=== PATIENT | female | born 1945 | race Caucasian/White ===

== ENCOUNTER 2017-02-16 00:10 | Emergency (ER) | payer MEDICARE, BC ==
[2017-02-16] MEDS ORDERED: diphenhydrAMINE 50 MG/ML 1 ML VIAL IVP STA (00:37)
[2017-02-16] MEDS ORDERED: FAMOTIDINE 20 MG/2 ML VIAL IV STA (00:37)
--- NOTE | 2017-02-16 00:45 | ED ---
General Adult HPI - General Chief complaint: Allergic Reaction Stated complaint: Poss Allergic Reaction Time Seen by Provider: 02/16/17 00:28 Source: patient, RN notes reviewed Mode of arrival: ambulatory Limitations: no limitations - History of Present Illness Initial comments: Patient is 71-year-old female who presents emergency room today with a chief complaint possible ALLERGIC reaction. She does admit that she was at her family doctor's office this afternoon approximately 2 PM and had a pneumonia and shingles shot. She states approximately 10 PM she began feeling some numbness tingling sensation to her lips. She states she noticed her face was a little swollen on the left side and left arm was swollen. She states she called the on-call nurse advised to come here to the emergency room. She states not take any medications prior to arrival. Patient denies any recent fever, chills, shortness of breath, chest pain, back pain, abdominal pain, nausea or vomiting, numbness or tingling, dysuria or hematuria, constipation or diarrhea, headaches or visual changes, or any other complaints. - Related Data Home Medications Medication Instructions Recorded Confirmed Atenolol [Tenormin] 25 mg PO DAILY 04/20/14 02/16/17 Gabapentin [Neurontin] 600 mg PO BID 04/20/14 02/16/17 Levothyroxine Sodium [Levoxyl] 100 mcg PO DAILY 04/20/14 02/16/17 clonazePAM [KlonoPIN] 0.25 mg PO BID 04/20/14 02/16/17 cycloSPORINE 0.05% OPHTH SOLN 1 applicator BOTH EYES Q12H 04/20/14 02/16/17 [Restasis 0.05% Ophth Soln] Estrogens, Conjugated Cream 1 applicator VAGINAL DAILY 05/13/15 02/16/17 [Premarin Cream] Atorvastatin [Lipitor] 40 mg PO HS 05/22/16 02/16/17 Omeprazole 40 mg PO AC-BRKFST 05/22/16 02/16/17 Losartan/Hydrochlorothiazide 1 each PO DAILY 02/16/17 02/16/17 [Losartan-Hctz 50-12.5 mg Tab] Previous Rx's Medication Instructions Recorded Famotidine [Pepcid] 20 mg PO BID #20 tablet 02/16/17 diphenhydrAMINE [Benadryl] 1 - 2 tab PO Q6HR PRN #30 capsule 02/16/17 Allergies Allergy/AdvReac Type Severity Reaction Status Date / Time amoxicillin trihydrate Allergy Rash/Hives Verified 02/16/17 00:15 [From Augmentin] clopidogrel bisulfate Allergy Swelling Verified 02/16/17 00:15 [From Plavix] phenobarbital Allergy Rash/Hives Verified 02/16/17 00:15 potassium clavulanate Allergy Rash/Hives Verified 02/16/17 00:15 [From Augmentin] Review of Systems ROS Statement: Those systems with pertinent positive or pertinent negative responses have been documented in the HPI. ROS Other: All systems not noted in ROS Statement are negative. Past Medical History Past Medical History: Coronary Artery Disease (CAD), Hypertension, Renal Disease , Thyroid Disorder Additional Past Medical History / Comment(s): TACHYCARDIA, STAGE 3 RENAL FAILURE History of Any Multi-Drug Resistant Organisms: None Reported Past Surgical History: Heart Catheterization Additional Past Surgical History / Comment(s): D&C, cyst removed from spine Past Psychological History: Anxiety Smoking Status: Never smoker Past Alcohol Use History: Occasional Past Drug Use History: None Reported General Exam - General Exam Comments Initial Comments: General: The patient is awake and alert, in no distress, and does not appear acutely ill. Eye: Pupils are equal, round and reactive to light, extra-ocular movements are intact. No nystagmus. There is normal conjunctiva bilaterally. No signs of icterus. Ears, nose, mouth and throat: There are moist mucous membranes and no oral lesions. Neck: The neck is supple, there is no tenderness or JVD. Cardiovascular: There is a regular rate and rhythm. No murmur, rub or gallop is appreciated. Respiratory: Lungs are clear to auscultation, respirations are non-labored, breath sounds are equal. No wheezes, stridor, rales, or rhonchi. Gastrointestinal: Soft, non-distended, non-tender abdomen without masses or organomegaly noted. There is no rebound or guarding present. No CVA tenderness. Bowel sounds are unremarkable. Musculoskeletal: Normal ROM, no tenderness. Strength 5/5. Sensation intact. Pulses equal bilaterally 2+. Neurological: A&O x 3. CN II-XII intact, There are no obvious motor or sensory deficits. Coordination appears grossly intact. Speech is normal. Skin: Skin is warm and dry and no rashes or lesions are noted. Psychiatric: Cooperative, appropriate mood & affect, normal judgment. Limitations: no limitations Course Vital Signs 02/16/17 02/16/17 02/16/17 00:13 00:56 01:22 Temperature 98.0 F Pulse Rate 84 68 63 Respiratory 18 16 18 Rate Blood Pressure 203/89 187/79 162/70 O2 Sat by Pulse 98 98 100 Oximetry Medical Decision Making - Medical Decision Making Patient reexamined at this time shows no signs of distress. She does admit that she's feeling better after Benadryl given here in the emergency room. Patient was not given IV steroids as she states she has had similar reactions with numbness and tingling to her mouth after prednisone. She was given 50 mg of IV Benadryl along with 20 mg of Pepcid. She is feeling better has currently asymptomatic at this time. Denies any difficulty breathing or swallowing. At this time she'll be discharged home and advised to continue with Benadryl one to 2 tabs every 6 hours along with Pepcid twice daily. Patient advised follow- up family doctor tomorrow return here to the emergency room if any symptoms increase worsen. She states understanding and is in agreement. Disposition Clinical Impression: Allergic reaction Disposition: HOME SELF-CARE Condition: Good Instructions: Anaphylaxis (ED) Additional Instructions: Please use medication as discussed. Please follow-up with family doctor in the next 2 days of symptoms have not improved. Please return to emergency room if the symptoms increase or worsen or for any other concerns. Prescriptions: Famotidine [Pepcid] 20 mg PO BID #20 tablet diphenhydrAMINE [Benadryl] 1 - 2 tab PO Q6HR PRN #30 capsule PRN Reason: Allergic Reaction Time of Disposition: 01:49
[2017-02-16 01:23] VITALS: RESP 18
[2017-02-16 02:01] VITALS: BP 158/67; PULSE 62; TEMP 96.9
== END 2017-02-16 02:00 | disposition home or self-care (01) ==
LOC: EC 00:10
DX: T80.62XA Other serum reaction due to vaccination, initial encounter (principal); T50.B95A Adverse effect of other viral vaccines, initial encounter; T50.A95A Adverse effect of other bacterial vaccines, initial encounter; I12.9 Hypertensive chronic kidney disease with stage 1 through stage 4 chronic kidney disease, or unspecified chronic kidney disease; N18.3 Chronic kidney disease, stage 3 (moderate); F41.9 Anxiety disorder, unspecified; Z79.899 Other long term (current) drug therapy; Z88.1 Allergy status to other antibiotic agents; Z88.8 Allergy status to other drugs, medicaments and biological substances
CPT/HCPCS: 99284; 96374; 96375; J1200

== ENCOUNTER 2017-04-21 15:53 | Observation (INO) | payer MEDICARE, BC ==
[2017-04-21] MEDS ORDERED: ASPIRIN 81 MG CHEW PO STA (16:34)
[2017-04-21] MEDS ORDERED: NITROGLYCERIN SL TABS 0.4 MG TAB SUBLINGUAL STA ×3 (16:34)
--- NOTE | 2017-04-21 16:37 | ED ---
General Adult HPI - General Chief complaint: Chest Pain Stated complaint: Chest Pain Time Seen by Provider: 04/21/17 16:25 Source: patient, RN notes reviewed Mode of arrival: wheelchair Limitations: no limitations - History of Present Illness Initial comments: Patient is a pleasant 71-year-old female presenting to the emergency department complaining of chest discomfort. Onset of symptoms was earlier in the morning. Patient states discomfort has been waxing and waning since that time. Discomfort feels mostly like tightness. Discomfort does radiate somewhat towards the back. Patient states there may be minimal dyspnea or nausea. No diaphoresis. No history of similar symptoms previously. Patient has been having problems with high blood pressure recently. - Related Data Home Medications Medication Instructions Recorded Confirmed Levothyroxine Sodium [Levoxyl] 100 mcg PO SUMOTUWETHFR 04/20/14 04/21/17 clonazePAM [KlonoPIN] 0.25 mg PO BID 04/20/14 04/21/17 cycloSPORINE 0.05% OPHTH SOLN 1 applicator BOTH EYES Q12H 04/20/14 04/21/17 [Restasis 0.05% Ophth Soln] Estrogens, Conjugated Cream 1 applicator VAGINAL DAILY 05/13/15 04/21/17 [Premarin Cream] Atorvastatin [Lipitor] 40 mg PO HS 05/22/16 04/21/17 Omeprazole 40 mg PO AC-BRKFST 05/22/16 04/21/17 Aspirin [Children's Aspirin] 81 mg PO DAILY 04/21/17 04/21/17 Atenolol [Tenormin] 50 mg PO BID 04/21/17 04/21/17 Fluticasone Nasal [place] [Flonase 1 spr EA NOSTRIL DAILY PRN 04/21/17 04/21/17 Nasal [place]] Gabapentin 600 mg PO BID 04/21/17 04/21/17 L.acidoph,Paracasei, B.lactis 1 cap PO HS 04/21/17 04/21/17 [Probiotic] Levothyroxine Sodium [Levoxyl] 50 mcg PO SA 04/21/17 04/21/17 Methylcellulose (with Sugar) 2 gm PO QAM 04/21/17 04/21/17 [Citrucel Powder] Zanaflex (Unknown Dose) 1 tab PO DIRECTED PRN 04/21/17 04/21/17 Allergies Allergy/AdvReac Type Severity Reaction Status Date / Time amoxicillin trihydrate Allergy Rash/Hives Verified 04/21/17 17:41 [From Augmentin] clopidogrel bisulfate Allergy Swelling Verified 04/21/17 17:41 [From Plavix] phenobarbital Allergy Rash/Hives Verified 04/21/17 17:41 potassium clavulanate Allergy Rash/Hives Verified 04/21/17 17:41 [From Augmentin] Review of Systems ROS Statement: Those systems with pertinent positive or pertinent negative responses have been documented in the HPI. ROS Other: All systems not noted in ROS Statement are negative. Constitutional: Denies: fever Eyes: Denies: eye pain ENT: Denies: ear pain Respiratory: Denies: cough Cardiovascular: Reports: chest pain Endocrine: Denies: fatigue Gastrointestinal: Denies: abdominal pain Genitourinary: Denies: urgency Skin: Denies: rash Neurological: Denies: headache Psychiatric: Reports: anxiety Past Medical History Past Medical History: Coronary Artery Disease (CAD), Hypertension, Renal Disease , Thyroid Disorder Additional Past Medical History / Comment(s): TACHYCARDIA, STAGE 3 RENAL FAILURE History of Any Multi-Drug Resistant Organisms: None Reported Past Surgical History: Heart Catheterization Additional Past Surgical History / Comment(s): D&C, cyst removed from spine Past Psychological History: Anxiety Smoking Status: Never smoker Past Alcohol Use History: Occasional Past Drug Use History: None Reported General Exam Limitations: no limitations General appearance: alert, in no apparent distress Head exam: Present: atraumatic Eye exam: Present: normal appearance, PERRL ENT exam: Present: normal oropharynx Neck exam: Present: normal inspection Respiratory exam: Present: normal lung sounds bilaterally Cardiovascular Exam: Present: regular rate, normal rhythm Expanded Peripheral pulses: 2+: Radial (R), Radial (L), Dorsalis Pedis (R), Dorsalis Pedis (L) GI/Abdominal exam: Present: soft. Absent: tenderness Extremities exam: Present: normal inspection. Absent: pedal edema, calf tenderness Neurological exam: Present: alert Psychiatric exam: Present: normal affect, normal mood Skin exam: Present: normal color Course Vital Signs 04/21/17 04/21/17 16:09 16:38 Temperature 97.7 F 98.2 F Pulse Rate 53 L 59 L Respiratory 16 17 Rate Blood Pressure 196/80 179/75 O2 Sat by Pulse 98 99 Oximetry EKG Findings - EKG Comments: EKG Findings:: Sinus bradycardia 57. RI 180. QRS 98. QT 446. QTc 434. Normal axis. Normal QRS. Nonspecific ST-T. Previous EKG dated 05/22/2016 was reviewed. Medical Decision Making - Medical Decision Making Patient reexamined and resting comfortably in bed. No discomfort at this time. Patient updated on results and plan. Case discussed in detail with Dr. Coppola , who will admit for hospital call. - Lab Data Result diagrams: 04/21/17 16:36 04/21/17 16:36 Lab Results 04/21/17 04/21/17 04/21/17 Range/Units 16:36 16:36 16:36 WBC 6.5 (3.8-10.6) k/uL RBC 4.56 (3.80-5.40) m/uL Hgb 13.6 (11.4-16.0) gm/dL Hct 40.7 (34.0-46.0) % MCV 89.2 (80.0-100.0) fL MCH 29.9 (25.0-35.0) pg MCHC 33.5 (31.0-37.0) g/dL RDW 14.4 (11.5-15.5) % Plt Count 194 (150-450) k/uL Neutrophils % 65 % Lymphocytes % 25 % Monocytes % 4 % Eosinophils % 2 % Basophils % 1 % Neutrophils # 4.2 (1.3-7.7) k/uL Lymphocytes # 1.6 (1.0-4.8) k/uL Monocytes # 0.3 (0-1.0) k/uL Eosinophils # 0.2 (0-0.7) k/uL Basophils # 0.0 (0-0.2) k/uL PT (9.0-12.0) sec INR (<1.1) APTT (22.0-30.0) sec D-Dimer (<0.60) mg/L FEU Sodium 143 (137-145) mmol/L Potassium 4.0 (3.5-5.1) mmol/L Chloride 108 H (98-107) mmol/L Carbon Dioxide 24 (22-30) mmol/L Anion Gap 11 mmol/L BUN 22 H (7-17) mg/dL Creatinine 1.05 H (0.52-1.04) mg/dL Est GFR (MDRD) Af Amer >60 (>60 ml/min/1.73 sqM) Est GFR (MDRD) Non-Af 52 (>60 ml/min/1.73 sqM) Glucose 104 H (74-99) mg/dL Calcium 9.9 (8.4-10.2) mg/dL Magnesium 2.0 (1.6-2.3) mg/dL Total Bilirubin 1.0 (0.2-1.3) mg/dL AST 33 (14-36) U/L ALT 40 (9-52) U/L Alkaline Phosphatase 70 (38-126) U/L Total Creatine Kinase 131 (30-135) U/L CK-MB (CK-2) 1.6 (0.0-2.4) ng/mL CK-MB (CK-2) Rel Index 1.2 Troponin I <0.012 (0.000-0.034) ng/mL Total Protein 7.3 (6.3-8.2) g/dL Albumin 4.3 (3.5-5.0) g/dL 04/21/17 Range/Units 16:36 WBC (3.8-10.6) k/uL RBC (3.80-5.40) m/uL Hgb (11.4-16.0) gm/dL Hct (34.0-46.0) % MCV (80.0-100.0) fL MCH (25.0-35.0) pg MCHC (31.0-37.0) g/dL RDW (11.5-15.5) % Plt Count (150-450) k/uL Neutrophils % % Lymphocytes % % Monocytes % % Eosinophils % % Basophils % % Neutrophils # (1.3-7.7) k/uL Lymphocytes # (1.0-4.8) k/uL Monocytes # (0-1.0) k/uL Eosinophils # (0-0.7) k/uL Basophils # (0-0.2) k/uL PT 10.2 (9.0-12.0) sec INR 1.0 (<1.1) APTT 22.7 (22.0-30.0) sec D-Dimer 0.37 (<0.60) mg/L FEU Sodium (137-145) mmol/L Potassium (3.5-5.1) mmol/L Chloride (98-107) mmol/L Carbon Dioxide (22-30) mmol/L Anion Gap mmol/L BUN (7-17) mg/dL Creatinine (0.52-1.04) mg/dL Est GFR (MDRD) Af Amer (>60 ml/min/1.73 sqM) Est GFR (MDRD) Non-Af (>60 ml/min/1.73 sqM) Glucose (74-99) mg/dL Calcium (8.4-10.2) mg/dL Magnesium (1.6-2.3) mg/dL Total Bilirubin (0.2-1.3) mg/dL AST (14-36) U/L ALT (9-52) U/L Alkaline Phosphatase (38-126) U/L Total Creatine Kinase (30-135) U/L CK-MB (CK-2) (0.0-2.4) ng/mL CK-MB (CK-2) Rel Index Troponin I (0.000-0.034) ng/mL Total Protein (6.3-8.2) g/dL Albumin (3.5-5.0) g/dL - Radiology Data Radiology results: image reviewed (Chest x-ray shows no acute process) Disposition Clinical Impression: Unstable angina pectoris Disposition: ADMITTED IP TO THIS [facility] Referrals: Nonstaff,Physician [Primary Care Provider] - 1-2 days Decision Time: 18:20
[2017-04-21] MEDS ORDERED: NITROGLYCERIN OINT 1 INCH/GM PACKET TOPICAL STA (16:43)
[2017-04-21 17:03] LABS: Basophils % (A) 1 %; CH 29.5; CHCM 33.2; Eosinophils # (A) 0.2 k/uL (0-0.7); Eosinophils % (A) 2 %; HCT 40.7 % (34.0-46.0); HDW 2.27; HGB 13.6 gm/dL (11.4-16.0); Luc # (Auto) 0.17; Luc % (Auto) 3; Lymphocytes # (A) 1.6 k/uL (1.0-4.8); Lymphocytes % (A) 25 %; MCH 29.9 pg (25.0-35.0); MCHC 33.5 g/dL (31.0-37.0); MCV 89.2 fL (80.0-100.0); Mean Platelet Volume 7.9; Monocytes # (A) 0.3 k/uL (0-1.0); Monocytes % (A) 4 %; Neutrophils # (A) 4.2 k/uL (1.3-7.7); Neutrophils % (A) 65 %; RBC 4.56 m/uL (3.80-5.40); RDW 14.4 % (11.5-15.5); WBC 6.5 k/uL (3.8-10.6); WBC (Perox) 6.16
[2017-04-21 17:17] LABS: Partial Thromboplastin Time 22.7 sec (22.0-30.0); Prothrombin Time 10.2 sec (9.0-12.0)
--- NOTE | 2017-04-21 17:21 | XR ---
EXAMINATION TYPE: XR chest 2V DATE OF EXAM: 04/21/2017 COMPARISON: NONE INDICATION: Chest pain TECHNIQUE: Frontal and lateral views of the chest are obtained. FINDINGS: The heart size is normal. The pulmonary vasculature is normal. The lungs are clear. IMPRESSION: 1. No acute pulmonary process.
[2017-04-21 17:22] LABS: ALT 40 U/L (9-52); AST 33 U/L (14-36); Alkaline Phosphatase 70 U/L (38-126); Anion Gap 11 mmol/L; Blood Urea Nitrogen 22 mg/dL (7-17); Calcium 9.9 mg/dL (8.4-10.2); Carbon Dioxide 24 mmol/L (22-30); Chloride 108 mmol/L (98-107); Creatine Kinase 131 U/L (30-135); Glucose 104 mg/dL (74-99); Non-African American GFR(MDRD) 52 (>60 ml/min/1.73 sqM); Sodium 143 mmol/L (137-145); Total Protein 7.3 g/dL (6.3-8.2)
[2017-04-21 17:34] LABS: Creatine Kinase MB 1.6 ng/mL (0.0-2.4); Troponin I <0.012 ng/mL (0.000-0.034)
[2017-04-21] MEDS ORDERED: NITROGLYCERIN SL TABS 0.4 MG TAB SUBLINGUAL PRN (18:20)
[2017-04-21] MEDS ORDERED: HEPARIN SODIUM,PORCINE 5,000 UNIT/ML 1 ML VIAL IV ONE (18:20)
[2017-04-21] MEDS ORDERED: HEPARIN SODIUM,PORCINE 5,000 UNIT/ML 1 ML VIAL IV PRN (18:20)
[2017-04-21] MEDS ORDERED: HEPARIN SODIUM,PORCINE/D5W PMX 25,000 UNIT in DEXTROSE/WATER 1 500ML.BAG IV SCH (18:30)
[2017-04-21 20:20] VITALS: BMI 31.1
[2017-04-21] MEDS: cycloSPORINE 0.05% OPHTH 0.4 ML DROPERETTE BOTH EYES SCH (20:46)
[2017-04-21] MEDS: GABAPENTIN 300 MG CAP PO SCH (20:46)
[2017-04-21] MEDS: clonazePAM 0.5 MG TAB PO SCH (20:46)
[2017-04-21] MEDS: ATENOLOL 50 MG TAB PO SCH (20:46)
[2017-04-21] MEDS: ACETAMINOPHEN TAB 325 MG TAB PO PRN (20:59)
[2017-04-21] MEDS ORDERED: ATORVASTATIN 40 MG TAB PO SCH (21:00)
[2017-04-21 22:54] LABS: Creatine Kinase 112 U/L (30-135)
[2017-04-21 23:07] LABS: Creatine Kinase MB 1.4 ng/mL (0.0-2.4); Troponin I <0.012 ng/mL (0.000-0.034)
[2017-04-22] MEDS: ACETAMINOPHEN TAB 325 MG TAB PO PRN ×2 (03:10→08:29)
[2017-04-22] MEDS: NITROGLYCERIN OINT 1 INCH/GM PACKET TOPICAL SCH ×2 (03:23→06:00)
[2017-04-22] MEDS ORDERED: LEVOTHYROXINE 100 MCG TAB PO SCH (06:30)
[2017-04-22 07:26] LABS: Mean Platelet Volume 7.8
[2017-04-22] MEDS ORDERED: PANTOPRAZOLE 40 MG TABLET PO SCH (07:30)
[2017-04-22 07:44] VITALS: BP 155/68; PULSE 51; RESP 16; TEMP 97.6
[2017-04-22 08:10] LABS: Creatine Kinase MB 1.1 ng/mL (0.0-2.4); Troponin I <0.012 ng/mL (0.000-0.034)
[2017-04-22 08:15] LABS: Creatine Kinase 90 U/L (30-135)
[2017-04-22 08:21] LABS: Cholesterol 115 mg/dL (<200); HDL Cholesterol 49 mg/dL (40-60); Triglycerides 76 mg/dL (<150)
[2017-04-22] MEDS: ATENOLOL 50 MG TAB PO SCH (08:25)
[2017-04-22] MEDS: GABAPENTIN 300 MG CAP PO SCH (08:26)
[2017-04-22] MEDS: cycloSPORINE 0.05% OPHTH 0.4 ML DROPERETTE BOTH EYES SCH (08:26)
[2017-04-22] MEDS: clonazePAM 0.5 MG TAB PO SCH (08:29)
[2017-04-22] MEDS ORDERED: ASPIRIN 325 MG TAB PO SCH (09:00)
--- NOTE | 2017-04-22 09:39 | P.CRDCN ---
History of Present Illness Consult date: 04/22/17 History of present illness: This is a 71-year-old female with history of hypertensive cardiovascular disease , labile hypertension and recurrent chest pains for which she had previous cardiac catheterizations 3. She had last bout of chest pain him in 2014 and had a cardiac catheterization at [facility] which he did not reveal any significant obstructive disease. according to the patient. He should also has back pain and spinal stenosis. Patient's blood pressure hasn't been well controlled. The dose of atenolol was recently increased to 50 mg twice daily. She was tried on her lisinopril was stopped and hydrochlorothiazide in the past which apparently made her blood pressure too low. She seemed very anxious. An EKG showed sinus rhythm with nonspecific ST- T abnormalities. Cardiac enzymes are negative. She feels better today and her blood pressure is reasonably controlled. As patient has several investigation the past for these pains, I'm not suggesting any further evaluation at this time. Patient is critically stable and could be discharged home. Follow-up with Dr. BOAZ Caruso in one week. Review of Systems REVIEW OF SYSTEMS: CONSTITUTIONAL:. Patient is doing well. No complaints of fever or chills EYES: Denies diplopia, blurring of vision EARS, NOSE, MOUTH, THROAT: Denies headaches, denies sore throat. CARDIOVASCULAR: As per HPI RESPIRATORY: Denies shortness of breath, denies cough. GASTROINTESTINAL: Denies change in appetite, denies abdominal pain, denies diarrhea GENITOURINARY: Denies hematuria, denies infections. MUSKULOSKELETAL: Denies pain, denies swelling. Denies any cramps or claudication INTEGUMENTARY: Denies rash, denies eczema. NEUROLOGICAL: Denies focal weakness, or visual disturbance. Denies any dizziness or syncope PSYCHIATRIC: Denies anxiety, denies depression. HEMATOLOGIC/LYMPHATIC: Denies any bleeding, denies enlarged lymph nodes. Past Medical History Past Medical History: Coronary Artery Disease (CAD), Hypertension, Renal Disease , Thyroid Disorder Additional Past Medical History / Comment(s): TACHYCARDIA, STAGE 3 RENAL FAILURE History of Any Multi-Drug Resistant Organisms: None Reported Past Surgical History: Breast Surgery, Heart Catheterization, Tonsillectomy Additional Past Surgical History / Comment(s): D&C, cyst removed from spine Past Anesthesia/Blood Transfusion Reactions: Postoperative Nausea & Vomiting ( PONV) Past Psychological History: Anxiety Smoking Status: Never smoker - Past Family History Mother Family Medical History: Cancer Additional Family Medical History / Comment(s): breast cancer, parkinsins, degenerative disc disease, ovary cyst, passed from head injury Father Family Medical History: Coronary Artery Disease (CAD), Hypertension, Myocardial Infarction ([place]) Additional Family Medical History / Comment(s): triple bypass Brother(s) Additional Family Medical History / Comment(s): subdural hematoma Son(s) Family Medical History: No Reported History Sister(s) Family Medical History: Hypertension Additional Family Medical History / Comment(s): parathyroid disorder Medications and Allergies Home Medications Medication Instructions Recorded Confirmed Type Levothyroxine Sodium [Levoxyl] 100 mcg PO SUMOTUWETHFR 04/20/14 04/21/17 History clonazePAM [KlonoPIN] 0.25 mg PO BID 04/20/14 04/21/17 History cycloSPORINE 0.05% OPHTH SOLN 1 applicator BOTH EYES Q12H 04/20/14 04/21/17 History [Restasis 0.05% Ophth Soln] Estrogens, Conjugated Cream 1 applicator VAGINAL DAILY 05/13/15 04/21/17 History [Premarin Cream] Atorvastatin [Lipitor] 40 mg PO HS 05/22/16 04/21/17 History Omeprazole 40 mg PO AC-BRKFST 05/22/16 04/21/17 History Aspirin [Children's Aspirin] 81 mg PO DAILY 04/21/17 04/21/17 History Atenolol [Tenormin] 50 mg PO BID 04/21/17 04/21/17 History Fluticasone Nasal [place] [Flonase 1 spr EA NOSTRIL DAILY PRN 04/21/17 04/21/17 History Nasal [place]] Gabapentin 600 mg PO BID 04/21/17 04/21/17 History L.acidoph,Paracasei, B.lactis 1 cap PO HS 04/21/17 04/21/17 History [Probiotic] Levothyroxine Sodium [Levoxyl] 50 mcg PO SA 04/21/17 04/21/17 History Methylcellulose (with Sugar) 2 gm PO QAM 04/21/17 04/21/17 History [Citrucel Powder] Zanaflex (Unknown Dose) 1 tab PO DIRECTED PRN 04/21/17 04/21/17 History Allergies Allergy/AdvReac Type Severity Reaction Status Date / Time amoxicillin trihydrate Allergy Rash/Hives Verified 04/21/17 20:37 [From Augmentin] clopidogrel bisulfate Allergy Swelling Verified 04/21/17 20:37 [From Plavix] phenobarbital Allergy Rash/Hives Verified 04/21/17 20:37 potassium clavulanate Allergy Rash/Hives Verified 04/21/17 20:37 [From Augmentin] Physical Exam Vitals: Vital Signs Temp Pulse Pulse Resp BP BP Pulse Ox 04/22/17 08:00 51 L 16 04/22/17 07:43 97.6 F 51 L 16 155/68 99 04/22/17 03:55 97.9 F 54 L 18 155/69 97 04/22/17 03:21 16 04/21/17 23:30 16 04/21/17 23:06 97.7 F 62 16 137/64 94 L 04/21/17 20:00 97.9 F 58 L 16 184/79 95 04/21/17 18:44 56 L 17 166/68 98 04/21/17 16:38 98.2 F 59 L 17 179/75 99 04/21/17 16:09 97.7 F 53 L 16 196/80 98 Intake and Output 04/21/17 04/22/17 04/22/17 22:59 06:59 14:59 Intake Total 170 568.446 Balance 170 568.446 Intake: IV 20 245 0.9@20 140 Heparin Sodium,Porcine/ 20 105 D5w Pmx 25,000 unit In Dextrose/Water 1 500ml. bag @ 12 UNITS/KG/HR 18. 61 mls/hr IV .Q24H KARLENE Rx #:[id number] Intake, IV Titration 123.446 Amount Heparin Sodium,Porcine/ 123.446 D5w Pmx 25,000 unit In Dextrose/Water 1 500ml. bag @ 12 UNITS/KG/HR 18. 61 mls/hr IV .Q24H KARLENE Rx #:[id number] Oral 150 200 Other: Voiding Method Toilet Toilet Toilet # Voids 1 3 Weight 79.6 kg GENERAL EXAM: Patient is alert and oriented and doesn't appear to be in any acute distress HEENT: Normocephalic. Normal reaction of pupils, equal size, normal range of extraocular motion. No erythema or exudates in the throat. NECK: No masses, no nuchal rigidity. CHEST: No chest wall deformity. LUNGS: Equal air entry with no crackles or wheeze. HEART: S1 and S2 normal with no audible mumurs or gallops. Regular rhythm, femorals equal on both sides.. ABDOMEN: No hepatosplenomegaly, normal bowel sounds, no guarding or rigidity. SKIN: No rashes CENTRAL NERVOUS SYSTEM: No focal deficits. EXTREMITIES: No cyanosis, clubbing or edema. Results 04/22/17 06:55 04/21/17 16:36 Cardiac Enzymes 04/21/17 04/21/17 04/21/17 Range/Units 16:36 16:36 22:08 AST 33 (14-36) U/L CK-MB (CK-2) 1.6 1.4 (0.0-2.4) ng/mL Troponin I <0.012 <0.012 (0.000-0.034) ng/mL 04/22/17 Range/Units 06:55 AST (14-36) U/L CK-MB (CK-2) 1.1 (0.0-2.4) ng/mL Troponin I <0.012 (0.000-0.034) ng/mL Coagulation 04/21/17 04/22/17 04/22/17 Range/Units 16:36 00:10 06:55 PT 10.2 (9.0-12.0) sec APTT 22.7 94.8 H 63.3 H (22.0-30.0) sec Lipids 04/22/17 Range/Units 06:55 Triglycerides 76 (<150) mg/dL Cholesterol 115 (<200) mg/dL HDL Cholesterol 49 (40-60) mg/dL CBC 04/21/17 04/22/17 Range/Units 16:36 06:55 WBC 6.5 (3.8-10.6) k/uL RBC 4.56 (3.80-5.40) m/uL Hgb 13.6 (11.4-16.0) gm/dL Hct 40.7 (34.0-46.0) % Plt Count 194 170 (150-450) k/uL Comprehensive Metabolic Panel 04/21/17 Range/Units 16:36 Sodium 143 (137-145) mmol/L Potassium 4.0 (3.5-5.1) mmol/L Chloride 108 H (98-107) mmol/L Carbon Dioxide 24 (22-30) mmol/L BUN 22 H (7-17) mg/dL Creatinine 1.05 H (0.52-1.04) mg/dL Glucose 104 H (74-99) mg/dL Calcium 9.9 (8.4-10.2) mg/dL AST 33 (14-36) U/L ALT 40 (9-52) U/L Alkaline Phosphatase 70 (38-126) U/L Total Protein 7.3 (6.3-8.2) g/dL Albumin 4.3 (3.5-5.0) g/dL Current Medications Generic Name Dose Route Start Last Admin Trade Name Freq PRN Reason Stop Dose Admin Acetaminophen 650 mg 04/21/17 20:43 04/22/17 08:29 Tylenol Tab PO 650 mg Q4HR PRN Administration Fever and/ or MILD Pain Aspirin 325 mg 04/22/17 09:00 04/22/17 08:25 Aspirin PO 325 mg DAILY KARLENE Administration Atenolol 50 mg 04/21/17 21:00 04/22/17 08:25 Tenormin PO 50 mg BID KARLENE Administration Atorvastatin Calcium 40 mg 04/21/17 21:00 04/21/17 20:46 Lipitor PO 40 mg HS KARLENE Administration Clonazepam 0.25 mg 04/21/17 21:00 04/22/17 08:29 Klonopin PO 0.25 mg BID KARLENE Administration Cyclosporine 1 drops 04/21/17 21:00 04/22/17 08:26 Restasis 0.05% Ophth Soln BOTH EYES 1 drops Q12HR KARLENE Administration Gabapentin 600 mg 04/21/17 21:00 04/22/17 08:26 Neurontin PO 600 mg BID KARLENE Administration Heparin Sodium (Porcine) 0 unit 04/21/17 18:20 Heparin IV Q6HR PRN Low PTT Protocol Heparin Sodium/Dextrose 25,000 500 mls @ 18.61 mls/hr 04/21/17 18:30 01:14 unit/ IV Solution IV 10 units/kg/hr .Q24H KARLENE 15.51 mls/hr Protocol Titration 12 UNITS/KG/HR Levothyroxine Sodium 50 mcg 04/28/17 06:30 Synthroid PO SA KARLENE Levothyroxine Sodium 100 mcg 04/23/17 06:30 Synthroid PO MOTUWETHFR@0630 KARLENE Nitroglycerin 1 inch 04/22/17 00:00 04/22/17 06:00 Nitro-Bid Oint TOPICAL Not Given Q6HR [facility] Nitroglycerin 0.4 mg 04/21/17 18:20 Nitrostat SUBLINGUAL Q5M PRN Chest Pain Pantoprazole Sodium 40 mg 04/22/17 07:30 04/22/17 08:25 Protonix PO 40 mg AC-BRKFST KARLENE Administration Sodium Chloride 10 ml 04/21/17 21:00 04/22/17 08:26 Saline Flush IV Not Given BID KARLENE Intake and Output 04/21/17 04/22/17 04/22/17 22:59 06:59 14:59 Intake Total 170 568.446 Balance 170 568.446 Intake: IV 20 245 0.9@20 140 Heparin Sodium,Porcine/ 20 105 D5w Pmx 25,000 unit In Dextrose/Water 1 500ml. bag @ 12 UNITS/KG/HR 18. 61 mls/hr IV .Q24H KARLENE Rx #:[id number] Intake, IV Titration 123.446 Amount Heparin Sodium,Porcine/ 123.446 D5w Pmx 25,000 unit In Dextrose/Water 1 500ml. bag @ 12 UNITS/KG/HR 18. 61 mls/hr IV .Q24H KRALENE Rx #:[id number] Oral 150 200 Other: Voiding Method Toilet Toilet Toilet # Voids 1 3 Weight 79.6 kg 04/22/17 06:55 04/21/17 16:36 EKG Interpretations (text) Sinus rhythm with nonspecific ST-T abnormalities Assessment and Plan (1) Unstable angina pectoris Status: Acute (2) Palpitations Status: Acute Plan: Her chest pains appear to be atypical. Cardiac enzymes are negative. Patient had several cardiac catheterizations, last one being in 2014, which apparently did not reveal any significant obstructive disease. Her symptoms may be related to anxiety. From my point of view, patient could be discharged home. Follow-up with Dr. BOAZ Caruso as an outpatient in one week.
--- NOTE | 2017-04-22 14:56 | P.DS ---
Providers Date of admission: 04/21/17 18:20 Attending physician: Silvio Coppola Consults: 04/21/17 18:20 Consult Physician Urgent Consulting Provider: Silvestre Caruso Consult Reason/Comments: ua Do you want consulting provider notified?: Yes Primary care physician: Physician Nonstaff Hospital Course: Please refer to HPI Plan - Discharge Summary New Discharge Prescriptions: No Action cycloSPORINE 0.05% OPHTH SOLN [Restasis 0.05% Ophth Soln] 1 applicator BOTH EYES Q12H Levothyroxine Sodium [Levoxyl] 100 mcg PO SUMOTUWETHFR clonazePAM [KlonoPIN] 0.25 mg PO BID Estrogens, Conjugated Cream [Premarin Cream] 1 applicator VAGINAL DAILY Omeprazole 40 mg PO AC-BRKFST Atorvastatin [Lipitor] 40 mg PO HS Methylcellulose (with Sugar) [Citrucel Powder] 2 gm PO QAM Fluticasone Nasal [place] [Flonase Nasal [place]] 1 spr EA NOSTRIL DAILY PRN PRN Reason: Allergy Symptoms L.acidoph,Paracasei, B.lactis [Probiotic] 1 cap PO HS Atenolol [Tenormin] 50 mg PO BID Aspirin [Children's Aspirin] 81 mg PO DAILY Levothyroxine Sodium [Levoxyl] 50 mcg PO SA Gabapentin 600 mg PO BID tiZANidine [Zanaflex] 4 mg PO Q8HR PRN PRN Reason: MUSCLE SPASMS Discharge Medication List Levothyroxine Sodium [Levoxyl] 100 mcg PO SUMOTUWETHFR 04/20/14 [History] clonazePAM [KlonoPIN] 0.25 mg PO BID 04/20/14 [History] cycloSPORINE 0.05% OPHTH SOLN [Restasis 0.05% Ophth Soln] 1 applicator BOTH EYES Q12H 04/20/14 [History] Estrogens, Conjugated Cream [Premarin Cream] 1 applicator VAGINAL DAILY [History] Atorvastatin [Lipitor] 40 mg PO HS 05/22/16 [History] Omeprazole 40 mg PO AC-BRKFST 05/22/16 [History] Aspirin [Children's Aspirin] 81 mg PO DAILY 04/21/17 [History] Atenolol [Tenormin] 50 mg PO BID 04/21/17 [History] Fluticasone Nasal [place] [Flonase Nasal [place]] 1 spr EA NOSTRIL DAILY PRN [History] Gabapentin 600 mg PO BID 04/21/17 [History] L.acidoph,Paracasei, B.lactis [Probiotic] 1 cap PO HS 04/21/17 [History] Levothyroxine Sodium [Levoxyl] 50 mcg PO SA 04/21/17 [History] Methylcellulose (with Sugar) [Citrucel Powder] 2 gm PO QAM 04/21/17 [History] tiZANidine [Zanaflex] 4 mg PO Q8HR PRN 04/22/17 [History] Follow up Appointment(s)/Referral(s): Silvestre Caruso MD [STAFF PHYSICIAN] - 1 Week Nonstaff,Physician [Primary Care Provider] - 3 Days Patient Instructions/Handouts: Chest Pain (DC) Discharge Disposition: HOME SELF-CARE
--- NOTE | 2017-04-22 14:56 | P.HPIM ---
History of Present Illness This is a 71-year-old female with history of hypertensive cardiovascular disease , labile hypertension and recurrent chest pains for which she had previous cardiac catheterizations 3 with negative CAD. She had last bout of chest pain him in 2014 and had a cardiac catheterization at [facility] which he did not reveal any significant obstructive disease. according to the patient. He should also has back pain and spinal stenosis. Patient's blood pressure hasn't been well controlled. The dose of atenolol was recently increased to 50 mg twice daily. Which she believes contributed to her pain patient appears to be more anxious and pain chest pain is in the epigastric area and patient does have a pressure-like sensation 5/10 in severity and patient does have chronic back pain which may have contributed to her symptoms mostly muscle skeletal nature patient was admitted cardiology and the the cleared patient for discharge. An EKG showed sinus rhythm with nonspecific ST- T abnormalities. Cardiac enzymes are negative. She feels better today and her blood pressure is reasonably controlled. As patient has several investigation the past for these pains, I'm not suggesting any further evaluation at this time. Patient will follow-up with PCP and cardiology as an outpatient. Review of Systems REVIEW OF SYSTEMS: CONSTITUTIONAL: No fever, no malaise, no fatigue. HEENT: No recent visual problems or hearing problems. Denied any sore throat. CARDIOVASCULAR: No orthopnea, PND, no palpitations, no syncope. PULMONARY: No shortness of breath, no cough, no hemoptysis. GASTROINTESTINAL: No diarrhea, no nausea, no vomiting, no abdominal pain. Normoactive bowel sounds. NEUROLOGICAL: No headaches, no weakness, no numbness. HEMATOLOGICAL: Denies any bleeding or petechiae. GENITOURINARY: Denies any burning micturition, frequency, or urgency. MUSCULOSKELETAL/RHEUMATOLOGICAL: Denies any joint pain, swelling, or any muscle pain. ENDOCRINE: Denies any polyuria or polydipsia. The rest of the 14-point review of systems is negative. Past Medical History Past Medical History: Coronary Artery Disease (CAD), Hypertension, Renal Disease , Thyroid Disorder Additional Past Medical History / Comment(s): TACHYCARDIA, STAGE 3 RENAL FAILURE History of Any Multi-Drug Resistant Organisms: None Reported Past Surgical History: Breast Surgery, Heart Catheterization, Tonsillectomy Additional Past Surgical History / Comment(s): D&C, cyst removed from spine Past Anesthesia/Blood Transfusion Reactions: Postoperative Nausea & Vomiting ( PONV) Past Psychological History: Anxiety Smoking Status: Never smoker - Past Family History Mother Family Medical History: Cancer Additional Family Medical History / Comment(s): breast cancer, parkinsins, degenerative disc disease, ovary cyst, passed from head injury Father Family Medical History: Coronary Artery Disease (CAD), Hypertension, Myocardial Infarction ([place]) Additional Family Medical History / Comment(s): triple bypass Brother(s) Additional Family Medical History / Comment(s): subdural hematoma Son(s) Family Medical History: No Reported History Sister(s) Family Medical History: Hypertension Additional Family Medical History / Comment(s): parathyroid disorder Medications and Allergies Home Medications Medication Instructions Recorded Confirmed Type Levothyroxine Sodium [Levoxyl] 100 mcg PO SUMOTUWETHFR 04/20/14 04/21/17 History clonazePAM [KlonoPIN] 0.25 mg PO BID 04/20/14 04/21/17 History cycloSPORINE 0.05% OPHTH SOLN 1 applicator BOTH EYES Q12H 04/20/14 04/21/17 History [Restasis 0.05% Ophth Soln] Estrogens, Conjugated Cream 1 applicator VAGINAL DAILY 05/13/15 04/21/17 History [Premarin Cream] Atorvastatin [Lipitor] 40 mg PO HS 05/22/16 04/21/17 History Omeprazole 40 mg PO AC-BRKFST 05/22/16 04/21/17 History Aspirin [Children's Aspirin] 81 mg PO DAILY 04/21/17 04/21/17 History Atenolol [Tenormin] 50 mg PO BID 04/21/17 04/21/17 History Fluticasone Nasal [place] [Flonase 1 spr EA NOSTRIL DAILY PRN 04/21/17 04/21/17 History Nasal [place]] Gabapentin 600 mg PO BID 04/21/17 04/21/17 History L.acidoph,Paracasei, B.lactis 1 cap PO HS 04/21/17 04/21/17 History [Probiotic] Levothyroxine Sodium [Levoxyl] 50 mcg PO SA 04/21/17 04/21/17 History Methylcellulose (with Sugar) 2 gm PO QAM 04/21/17 04/21/17 History [Citrucel Powder] tiZANidine [Zanaflex] 4 mg PO Q8HR PRN 04/22/17 04/22/17 History Allergies Allergy/AdvReac Type Severity Reaction Status Date / Time amoxicillin trihydrate Allergy Rash/Hives Verified 04/21/17 20:37 [From Augmentin] clopidogrel bisulfate Allergy Swelling Verified 04/21/17 20:37 [From Plavix] phenobarbital Allergy Rash/Hives Verified 04/21/17 20:37 potassium clavulanate Allergy Rash/Hives Verified 04/21/17 20:37 [From Augmentin] Physical Exam Vitals: Vital Signs Temp Pulse Pulse Resp BP BP Pulse Ox 04/22/17 08:00 51 L 16 04/22/17 07:43 97.6 F 51 L 16 155/68 99 04/22/17 03:55 97.9 F 54 L 18 155/69 97 04/22/17 03:21 16 04/21/17 23:30 16 04/21/17 23:06 97.7 F 62 16 137/64 94 L 04/21/17 20:00 97.9 F 58 L 16 184/79 95 04/21/17 18:44 56 L 17 166/68 98 04/21/17 16:38 98.2 F 59 L 17 179/75 99 04/21/17 16:09 97.7 F 53 L 16 196/80 98 Intake and Output 04/21/17 04/22/17 04/22/17 22:59 06:59 14:59 Intake Total 170 568.446 350 Balance 170 568.446 350 Intake: IV 20 245 0.9@20 140 Heparin Sodium,Porcine/ 20 105 D5w Pmx 25,000 unit In Dextrose/Water 1 500ml. bag @ 12 UNITS/KG/HR 18. 61 mls/hr IV .Q24H KARLENE Rx #:[id number] Intake, IV Titration 123.446 Amount Heparin Sodium,Porcine/ 123.446 D5w Pmx 25,000 unit In Dextrose/Water 1 500ml. bag @ 12 UNITS/KG/HR 18. 61 mls/hr IV .Q24H KARLENE Rx #:[id number] Oral 150 200 350 Other: Voiding Method Toilet Toilet Toilet # Voids 1 3 Weight 79.6 kg PHYSICAL EXAMINATION: GENERAL: The patient is alert and oriented x3, not in any acute distress. Well developed, well nourished. HEENT: Pupils are round and equally reacting to light. EOMI. No scleral icterus. No conjunctival pallor. Normocephalic, atraumatic. No pharyngeal erythema. No thyromegaly. CARDIOVASCULAR: S1 and S2 present. No murmurs, rubs, or gallops. PULMONARY: Chest is clear to auscultation, no wheezing or crackles. ABDOMEN: Soft, nontender, nondistended, normoactive bowel sounds. No palpable organomegaly. MUSCULOSKELETAL: No joint swelling or deformity. EXTREMITIES: No cyanosis, clubbing, or pedal edema. NEUROLOGICAL: Gross neurological examination did not reveal any focal deficits. SKIN: No rashes. Results CBC & Chem 7: 04/22/17 06:55 04/21/17 16:36 Labs: Abnormal Lab Results - Last 24 Hours (Table) 04/21/17 04/22/17 04/22/17 Range/Units 16:36 00:10 06:55 APTT 94.8 H 63.3 H (22.0-30.0) sec Chloride 108 H (98-107) mmol/L BUN 22 H (7-17) mg/dL Creatinine 1.05 H (0.52-1.04) mg/dL Glucose 104 H (74-99) mg/dL Thrombosis Risk Factor Assmnt - Choose All That Apply Each Factor Represents 1 point: Obesity (BMI >25) Other Risk Factors: Yes Other congenital or acquired thrombophilia - If yes, enter type in comment: No Thrombosis Risk Factor Assessment Total Risk Factor Score: 1 Thrombosis Risk Factor Assessment Level: Low Risk Assessment and Plan Plan: #1 chest pain, rule out a concurrent syndromes, unstable angina, patient has been his most was postictal in nature related to back pain. Patient will follow with PCP for that. #2 hypertension 3 gastroesophageal reflux disease 4 hyperlipidemia #5 hypothyroidism Above-mentioned medical problems patient can continue her home medications.
[2017-04-23] MEDS ORDERED: LEVOTHYROXINE 100 MCG TAB PO SCH (06:30)
[2017-04-28] MEDS ORDERED: LEVOTHYROXINE 50 MCG TAB PO SCH (06:30)
== END 2017-04-22 11:54 | disposition home or self-care (01) ==
LOC: EC 15:53 → 3OBS 18:20
PROVIDERS: ADMIT Hospitalist; ATTEND Hospitalist
DX: I25.10 Atherosclerotic heart disease of native coronary artery without angina pectoris (principal); E78.5 Hyperlipidemia, unspecified; K21.9 Gastro-esophageal reflux disease without esophagitis; I13.10 Hypertensive heart and chronic kidney disease without heart failure, with stage 1 through stage 4 chronic kidney disease, or unspecified chronic kidney disease; N18.3 Chronic kidney disease, stage 3 (moderate); E03.9 Hypothyroidism, unspecified; F41.9 Anxiety disorder, unspecified; Z82.49 Family history of ischemic heart disease and other diseases of the circulatory system; Z79.899 Other long term (current) drug therapy; Z79.82 Long term (current) use of aspirin; Z88.0 Allergy status to penicillin; Z88.8 Allergy status to other drugs, medicaments and biological substances; R00.2 Palpitations
CPT/HCPCS: 96376 ×2; 96365 ×2; 99285 ×2; 96366 ×2; 36415; 93005; 85379; 80061; 80053; 82550 ×2; 82553 ×2; 83735; 84484 ×2; 85025; 85049; 85610; 85730 ×2; 71020; G0378 ×2; J1644 ×2

== ENCOUNTER 2017-12-16 22:18 | Emergency (ER) | payer MEDICARE, BC ==
[2017-12-16 22:24] VITALS: TEMP 97.3
[2017-12-16 22:47] LABS: Glucose,Whole Blood 87 mg/dL (75-99)
[2017-12-16 22:57] LABS: Basophils # (A) 0.1 k/uL (0-0.2); Basophils % (A) 1 %; Eosinophils # (A) 0.2 k/uL (0-0.7); Eosinophils % (A) 3 %; HCT 41.2 % (34.0-46.0); HGB 12.7 gm/dL (11.4-16.0); Lymphocytes # (A) 2.2 k/uL (1.0-4.8); Lymphocytes % (A) 31 %; MCH 28.3 pg (25.0-35.0); MCHC 30.7 g/dL (31.0-37.0); MCV 92.1 fL (80.0-100.0); Mean Platelet Volume 6.9; Monocytes # (A) 0.4 k/uL (0-1.0); Monocytes % (A) 6 %; Neutrophils # (A) 3.9 k/uL (1.3-7.7); Neutrophils % (A) 57 %; Platelet Count 207 k/uL (150-450); RBC 4.48 m/uL (3.80-5.40); RDW 13.3 % (11.5-15.5); WBC 6.9 k/uL (3.8-10.6)
[2017-12-16 23:04] LABS: Partial Thromboplastin Time 21.9 sec (22.0-30.0); Prothrombin Time 9.5 sec (9.0-12.0)
[2017-12-16 23:06] LABS: Albumin 4.3 g/dL (3.5-5.0); Calcium 9.9 mg/dL (8.4-10.2); Potassium 4.5 mmol/L (3.5-5.1); Total Bilirubin 0.4 mg/dL (0.2-1.3); Total Protein 7.4 g/dL (6.3-8.2)
--- NOTE | 2017-12-16 23:14 | ED ---
Neuro HPI - General Chief Complaint: Neuro Symptoms/Deficit Stated Complaint: poss TIA Time Seen by Provider: 12/16/17 22:32 Source: patient Mode of arrival: wheelchair Limitations: no limitations - History of Present Illness Is the patient presenting with stroke symptoms?: No Initial Comments: 72 years old female had a left arm pain started at 9:30 PM she had the heating pad pain got his old within 10-15 minutes she denies any chest pain or shortness of breath she has been coughing but there is no pleuritic chest pain she had MRI done and she seen Dr. Cobos her neurologist he felt that her previous symptoms are because of firm home cervical spine pathology in the she got some shots in the back of the head and that helped her. Denies any headache no blurred vision no chest pain or shortness of breath no frequency urgency dysuria no signs of any TIA or CVA her symptoms were intact including is a funny feeling of the face she said all of her symptoms have resolved now. - Related Data Home Medications: Home Medications Medication Instructions Recorded Confirmed Levothyroxine Sodium [Levoxyl] 100 mcg PO MOTUWETHFR 04/20/14 12/16/17 clonazePAM [KlonoPIN] 0.25 mg PO BID 04/20/14 12/16/17 cycloSPORINE 0.05% OPHTH SOLN 1 applicator BOTH EYES Q12H 04/20/14 12/16/17 [Restasis 0.05% Ophth Soln] Atorvastatin [Lipitor] 40 mg PO HS 05/22/16 12/16/17 Aspirin [Children's Aspirin] 81 mg PO DAILY 04/21/17 12/16/17 Atenolol [Tenormin] 25 mg PO BID 04/21/17 12/16/17 Fluticasone Nasal [place] [Flonase 1 spr EA NOSTRIL DAILY PRN 04/21/17 12/16/17 Nasal [place]] Gabapentin 600 mg PO TID 04/21/17 12/16/17 Levothyroxine Sodium [Levoxyl] 50 mcg PO SA 04/21/17 12/16/17 Ferrous Sulfate [Feosol] 325 mg PO DAILY 12/16/17 12/16/17 Sertraline HCl [Zoloft] 25 mg PO DAILY 12/16/17 12/16/17 Allergies/Adverse Reactions: Allergies Allergy/AdvReac Type Severity Reaction Status Date / Time amoxicillin trihydrate Allergy Rash/Hives Verified 12/16/17 22:52 [From Augmentin] clopidogrel bisulfate Allergy Swelling Verified 12/16/17 22:52 [From Plavix] phenobarbital Allergy Rash/Hives Verified 12/16/17 22:52 potassium clavulanate Allergy Rash/Hives Verified 12/16/17 22:52 [From Augmentin] Review of Systems ROS Statement: Those systems with pertinent positive or pertinent negative responses have been documented in the HPI. ROS Other: All systems not noted in ROS Statement are negative. General Exam - General Exam Comments Initial Comments: General: The patient is awake and alert, in no distress, and does not appear acutely ill. GCS is 15 no facial droop appreciated Skin: Skin is warm and dry and no rashes or lesions are noted. Eye: Pupils are equal, round and reactive to light, extra-ocular movements are intact; there is normal conjunctiva bilaterally. Ears, nose, mouth and throat: There are moist mucous membranes and no oral lesions. Neck: The neck is supple, there is no tenderness or JVD. Cardiovascular: There is a regular rate and rhythm. No murmur, rub or gallop is appreciated. Did not Notice any A. fib or atrial flutter on examination Respiratory: To auscultation bilateral, no wheezing no rhonchi no distress respiratory francis noticed Gastrointestinal: Soft, non-distended, non-tender abdomen without masses or organomegaly noted. There is no rebound or guarding present. Bowel sounds are unremarkable. Back: There is no tenderness to palpation in the midline. There is no obvious deformity. Musculoskeletal: Normal ROM, no tenderness, There is no pedal edema. There is no calf tenderness or swelling. No cords were appreciated. Neurological: CN II-XII intact, Cranial nerves III through XII are intact. There are no obvious motor or sensory deficits. Coordination appears grossly intact. Speech is normal. Psychiatric: Cooperative, appropriate mood & affect, normal judgment. Limitations: no limitations Stroke MDM - Lab Data Result diagrams: 12/16/17 22:30 12/16/17 22:30 Lab Results 12/16/17 12/16/17 12/16/17 Range/Units 22:30 22:30 22:30 WBC 6.9 (3.8-10.6) k/uL RBC 4.48 (3.80-5.40) m/uL Hgb 12.7 (11.4-16.0) gm/dL Hct 41.2 (34.0-46.0) % MCV 92.1 (80.0-100.0) fL MCH 28.3 (25.0-35.0) pg MCHC 30.7 L (31.0-37.0) g/dL RDW 13.3 (11.5-15.5) % Plt Count 207 (150-450) k/uL Neutrophils % 57 % Lymphocytes % 31 % Monocytes % 6 % Eosinophils % 3 % Basophils % 1 % Neutrophils # 3.9 (1.3-7.7) k/uL Lymphocytes # 2.2 (1.0-4.8) k/uL Monocytes # 0.4 (0-1.0) k/uL Eosinophils # 0.2 (0-0.7) k/uL Basophils # 0.1 (0-0.2) k/uL PT (9.0-12.0) sec INR (<1.2) APTT (22.0-30.0) sec Sodium 144 (137-145) mmol/L Potassium 4.5 (3.5-5.1) mmol/L Chloride 105 (98-107) mmol/L Carbon Dioxide 27 (22-30) mmol/L Anion Gap 12 mmol/L BUN 24 H (7-17) mg/dL Creatinine 1.10 H (0.52-1.04) mg/dL Est GFR (MDRD) Af Amer 59 (>60 ml/min/1.73 sqM) Est GFR (MDRD) Non-Af 49 (>60 ml/min/1.73 sqM) Glucose 90 (74-99) mg/dL POC Glucose (mg/dL) (75-99) mg/dL POC Glu Driver Helper ID Calcium 9.9 (8.4-10.2) mg/dL Total Bilirubin 0.4 (0.2-1.3) mg/dL AST 29 (14-36) U/L ALT 31 (9-52) U/L Alkaline Phosphatase 89 (38-126) U/L Total Creatine Kinase 83 (30-135) U/L CK-MB (CK-2) 0.7 (0.0-2.4) ng/mL CK-MB (CK-2) Rel Index 0.8 Troponin I <0.012 (0.000-0.034) ng/mL Total Protein 7.4 (6.3-8.2) g/dL Albumin 4.3 (3.5-5.0) g/dL 12/16/17 12/16/17 Range/Units 22:30 22:31 WBC (3.8-10.6) k/uL RBC (3.80-5.40) m/uL Hgb (11.4-16.0) gm/dL Hct (34.0-46.0) % MCV (80.0-100.0) fL MCH (25.0-35.0) pg MCHC (31.0-37.0) g/dL RDW (11.5-15.5) % Plt Count (150-450) k/uL Neutrophils % % Lymphocytes % % Monocytes % % Eosinophils % % Basophils % % Neutrophils # (1.3-7.7) k/uL Lymphocytes # (1.0-4.8) k/uL Monocytes # (0-1.0) k/uL Eosinophils # (0-0.7) k/uL Basophils # (0-0.2) k/uL PT 9.5 (9.0-12.0) sec INR 1.0 (<1.2) APTT 21.9 L (22.0-30.0) sec Sodium (137-145) mmol/L Potassium (3.5-5.1) mmol/L Chloride (98-107) mmol/L Carbon Dioxide (22-30) mmol/L Anion Gap mmol/L BUN (7-17) mg/dL Creatinine (0.52-1.04) mg/dL Est GFR (MDRD) Af Amer (>60 ml/min/1.73 sqM) Est GFR (MDRD) Non-Af (>60 ml/min/1.73 sqM) Glucose (74-99) mg/dL POC Glucose (mg/dL) 87 (75-99) mg/dL POC Glu Driver Helper ID Arft, [place]illo Calcium (8.4-10.2) mg/dL Total Bilirubin (0.2-1.3) mg/dL AST (14-36) U/L ALT (9-52) U/L Alkaline Phosphatase (38-126) U/L Total Creatine Kinase (30-135) U/L CK-MB (CK-2) (0.0-2.4) ng/mL CK-MB (CK-2) Rel Index Troponin I (0.000-0.034) ng/mL Total Protein (6.3-8.2) g/dL Albumin (3.5-5.0) g/dL Past Medical History Past Medical History: Coronary Artery Disease (CAD), Hypertension, Renal Disease , Thyroid Disorder Additional Past Medical History / Comment(s): TACHYCARDIA, STAGE 3 RENAL FAILURE , degenerative cervical spine. History of Any Multi-Drug Resistant Organisms: None Reported Past Surgical History: Breast Surgery, Heart Catheterization, Orthopedic Surgery , Tonsillectomy Additional Past Surgical History / Comment(s): D&C, cyst removed from spine Past Anesthesia/Blood Transfusion Reactions: Postoperative Nausea & Vomiting ( PONV) Past Psychological History: Anxiety Smoking Status: Never smoker Past Alcohol Use History: Rare Past Drug Use History: None Reported - Past Family History Mother Family Medical History: Cancer Additional Family Medical History / Comment(s): breast cancer, parkinsins, degenerative disc disease, ovary cyst, passed from head injury Father Family Medical History: Coronary Artery Disease (CAD), Hypertension, Myocardial Infarction ([place]) Additional Family Medical History / Comment(s): triple bypass Brother(s) Additional Family Medical History / Comment(s): subdural hematoma Son(s) Family Medical History: No Reported History Sister(s) Family Medical History: Hypertension Additional Family Medical History / Comment(s): parathyroid disorder Course Vital Signs 12/16/17 12/16/17 22:20 23:43 Temperature 97.3 F L Pulse Rate 74 72 Respiratory 16 18 Rate Blood Pressure 146/88 161/72 O2 Sat by Pulse 98 98 Oximetry EKG is atrial flutter ventricular rate is 67 the computer read atrial flutter, ventricular rate is 67 QRS duration is 94 QT/QTc is 424/448 review of this EKG reveals some ST depression in lead 2 and also noticed some ST depression in V6 no ST elevation noticed, this EKG was compared from my 04/22/201718 he can't changes noticed except the suspicion of atrial flutter She was reassessed at term at 12 midnight, head CT is unremarkable chest x-ray is unremarkable troponin EKG CBC INR compressive metabolic panel are all unremarkable she has no neuro deficits at the time of exam she is happy to go home she has a neurologist Dr. Cobos she is given a call his office first thing in the morning and follow-up with him. She is taking aspirin 81 mg daily she is advised to continue the and return to the ER if symptoms get worse. Disposition Clinical Impression: Left arm pain Disposition: HOME SELF-CARE Condition: Good Instructions: Arm Pain (ED) Referrals: Nonstaff,Physician [Primary Care Provider] - 1-2 days
[2017-12-16 23:19] LABS: Creatine Kinase 83 U/L (30-135)
--- NOTE | 2017-12-16 23:23 | XR ---
EXAMINATION TYPE: XR chest 2V DATE OF EXAM: 12/16/2017 COMPARISON: 04/21/2017 HISTORY: Altered mental status. Chest pain TECHNIQUE: Frontal and lateral views of the chest are obtained. FINDINGS: Heart and mediastinum are normal. Lungs are clear. Diaphragm is normal. There are chest le ads. Bony thorax is intact. IMPRESSION: Normal chest. No change.
--- NOTE | 2017-12-16 23:30 | CT ---
EXAMINATION TYPE: CT brain wo con DATE OF EXAM: 12/16/2017 COMPARISON: 01/05/2015 HISTORY: Left arm numbness and headache CT DLP: 1029.9 mGycm Automated exposure control for dose reduction was used. FINDINGS: Ventricles and sulci appear normal. There is no mass effect nor midline shift. There is no sign of in tracranial hemorrhage. The calvarium appears intact. IMPRESSION: HEAD CT SCAN APPEARS NORMAL FOR AGE. NO CHANGE.
[2017-12-16 23:33] LABS: Creatine Kinase MB 0.7 ng/mL (0.0-2.4); Troponin I <0.012 ng/mL (0.000-0.034)
[2017-12-16 23:49] VITALS: BP 161/72; PULSE 72; RESP 18
== END 2017-12-17 00:19 | disposition home or self-care (01) ==
LOC: EC 22:18
DX: M79.602 Pain in left arm (principal); R40.2412 Glasgow coma scale score 13-15, at arrival to emergency department; R05 Cough; I10 Essential (primary) hypertension; I25.10 Atherosclerotic heart disease of native coronary artery without angina pectoris; E07.9 Disorder of thyroid, unspecified; F41.9 Anxiety disorder, unspecified; Z79.82 Long term (current) use of aspirin; Z79.899 Other long term (current) drug therapy; Z88.0 Allergy status to penicillin; Z88.8 Allergy status to other drugs, medicaments and biological substances; Z82.61 Family history of arthritis
CPT/HCPCS: 36415; 70450; 71046; 80053; 82550; 82553; 84484; 85025; 85610; 85730; 93005; 99284

== ENCOUNTER 2018-05-19 19:25 | Emergency (ER) | payer MEDICARE, BC ==
[2018-05-19 19:52] VITALS: TEMP 98.3
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
[2018-05-19] MEDS ORDERED: ACETAMINOPHEN TAB 325 MG TAB PO STA (20:41)
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
[2018-05-19] MEDS ORDERED: ATENOLOL 50 MG TAB PO STA (21:16)
[2018-05-19 21:36] VITALS: RESP 16
[2018-05-19 22:52] VITALS: BP 184/88; PULSE 59
== END 2018-05-19 22:51 | disposition home or self-care (01) ==
LOC: EC 19:25
DX: S00.03XA Contusion of scalp, initial encounter (principal); S00.83XA Contusion of other part of head, initial encounter; I12.9 Hypertensive chronic kidney disease with stage 1 through stage 4 chronic kidney disease, or unspecified chronic kidney disease; N18.3 Chronic kidney disease, stage 3 (moderate); I25.10 Atherosclerotic heart disease of native coronary artery without angina pectoris; E07.9 Disorder of thyroid, unspecified; F41.9 Anxiety disorder, unspecified; Z95.818 Presence of other cardiac implants and grafts; Z79.82 Long term (current) use of aspirin; Z79.899 Other long term (current) drug therapy; Z88.0 Allergy status to penicillin; Z88.8 Allergy status to other drugs, medicaments and biological substances; W20.8XXA Other cause of strike by thrown, projected or falling object, initial encounter; Y92.524 Gas station as the place of occurrence of the external cause
CPT/HCPCS: 70450; 99283

== ENCOUNTER 2018-11-26 01:24 | Emergency (ER) | payer MEDICARE, BC ==
[2018-11-26] MEDS ORDERED: LORazepam 1 MG TAB PO STA (02:56)
[2018-11-26] MEDS ORDERED: SODIUM CHLORIDE 0.9% 500 ML 500 ML IV STA (02:56)
[2018-11-26] MEDS ORDERED: cloNIDine HCL 0.1 MG TAB PO STA (02:58)
[2018-11-26 03:01] VITALS: RESP 18
[2018-11-26 03:45] LABS: Basophils % (A) 0 %; Eosinophils # (A) 0.1 k/uL (0-0.7); Eosinophils % (A) 1 %; HCT 40.4 % (34.0-46.0); Lymphocytes # (A) 3.3 k/uL (1.0-4.8); Lymphocytes % (A) 33 %; MCH 29.1 pg (25.0-35.0); MCHC 32.1 g/dL (31.0-37.0); MCV 90.8 fL (80.0-100.0); Mean Platelet Volume 7.1; Monocytes # (A) 0.6 k/uL (0-1.0); Monocytes % (A) 6 %; Neutrophils # (A) 5.5 k/uL (1.3-7.7); Neutrophils % (A) 56 %; Platelet Count 240 k/uL (150-450); RBC 4.45 m/uL (3.80-5.40); RDW 14.1 % (11.5-15.5); WBC 9.9 k/uL (3.8-10.6)
[2018-11-26 03:56] LABS: Albumin 4.1 g/dL (3.5-5.0); Calcium 10.2 mg/dL (8.4-10.2); Total Bilirubin 0.5 mg/dL (0.2-1.3); Total Protein 6.9 g/dL (6.3-8.2)
--- NOTE | 2018-11-26 04:00 | ED ---
General Adult HPI - General Chief complaint: Anxiety Stated complaint: Panic Attack Time Seen by Provider: 11/26/18 02:28 Source: patient, family, RN notes reviewed Mode of arrival: ambulatory Limitations: no limitations - History of Present Illness Initial comments: 73-year-old female with a past medical history of CAD, hypertension, renal disease, thyroid disorder presents to the emergency department for a chief complaint of panic attack. Patient states that prior to arrival she started to feel very anxious. She still like she was "crawling out of her skin. Patient states she had some mild chest pain at that time. She states all the symptoms are consistent with previous panic attacks. She states she recently stopped taking clonidine and Zoloft 3 months ago. She states she has had multiple panic attacks since that time but this one was the worst it had lasted the longest. She did see her psychologist today because of this. She states she has a psychiatry appointment in 2 days to discuss restarting medications. Patient states she has been much better at this time but still has some jitteriness.Patient has no other complaints at this time including shortness of breath, chest pain, abdominal pain, nausea or vomiting, headache, or visual changes. - Related Data Home Medications Medication Instructions Recorded Confirmed Levothyroxine Sodium [Levoxyl] 100 mcg PO MOTUWETHFR 04/20/14 12/16/17 clonazePAM [KlonoPIN] 0.25 mg PO BID 04/20/14 12/16/17 cycloSPORINE 0.05% OPHTH SOLN 1 applicator BOTH EYES Q12H 04/20/14 12/16/17 [Restasis 0.05% Ophth Soln] Atorvastatin [Lipitor] 40 mg PO HS 05/22/16 12/16/17 Aspirin [Children's Aspirin] 81 mg PO DAILY 04/21/17 12/16/17 Atenolol [Tenormin] 25 mg PO BID 04/21/17 12/16/17 Fluticasone Nasal [place] [Flonase 1 spr EA NOSTRIL DAILY PRN 04/21/17 12/16/17 Nasal [place]] Gabapentin 600 mg PO TID 04/21/17 12/16/17 Levothyroxine Sodium [Levoxyl] 50 mcg PO SA 04/21/17 12/16/17 Ferrous Sulfate [Feosol] 325 mg PO DAILY 12/16/17 12/16/17 Sertraline HCl [Zoloft] 25 mg PO DAILY 12/16/17 12/16/17 Previous Rx's Medication Instructions Recorded Ondansetron Odt [Zofran Odt] 4 mg PO Q8HR PRN #12 tab 09/04/18 LORazepam [Ativan] 0.5 mg PO DAILY PRN #2 tab 11/26/18 Allergies Allergy/AdvReac Type Severity Reaction Status Date / Time amoxicillin trihydrate Allergy Rash/Hives Verified 11/26/18 01:42 [From Augmentin] clopidogrel bisulfate Allergy Swelling Verified 11/26/18 01:42 [From Plavix] lisinopril Allergy Unknown Verified 11/26/18 01:42 losartan Allergy Unknown Verified 11/26/18 01:42 phenobarbital Allergy Rash/Hives Verified 11/26/18 01:42 potassium clavulanate Allergy Rash/Hives Verified 11/26/18 01:42 [From Augmentin] Review of Systems ROS Statement: Those systems with pertinent positive or pertinent negative responses have been documented in the HPI. ROS Other: All systems not noted in ROS Statement are negative. Past Medical History Past Medical History: Coronary Artery Disease (CAD), Hypertension, Renal Disease , Thyroid Disorder Additional Past Medical History / Comment(s): TACHYCARDIA, STAGE 3 RENAL FAILURE , degenerative cervical spine. History of Any Multi-Drug Resistant Organisms: None Reported Past Surgical History: Back Surgery, Breast Surgery, Heart Catheterization, Orthopedic Surgery, Tonsillectomy Additional Past Surgical History / Comment(s): D&C, cyst removed from spine Past Anesthesia/Blood Transfusion Reactions: Postoperative Nausea & Vomiting ( PONV) Past Psychological History: Anxiety Smoking Status: Never smoker Past Alcohol Use History: Rare Past Drug Use History: None Reported - Past Family History Mother Family Medical History: Cancer Additional Family Medical History / Comment(s): breast cancer, parkinsins, degenerative disc disease, ovary cyst, passed from head injury Father Family Medical History: Coronary Artery Disease (CAD), Hypertension, Myocardial Infarction ([place]) Additional Family Medical History / Comment(s): triple bypass Brother(s) Additional Family Medical History / Comment(s): subdural hematoma Son(s) Family Medical History: No Reported History Sister(s) Family Medical History: Hypertension Additional Family Medical History / Comment(s): parathyroid disorder General Exam Limitations: no limitations General appearance: alert, in no apparent distress Head exam: Present: atraumatic, normocephalic, normal inspection Eye exam: Present: normal appearance, PERRL, EOMI. Absent: scleral icterus, conjunctival injection, periorbital swelling ENT exam: Present: normal exam, mucous membranes moist Neck exam: Present: normal inspection, full ROM. Absent: tenderness, meningismus, lymphadenopathy Respiratory exam: Present: normal lung sounds bilaterally. Absent: respiratory distress, wheezes, rales, rhonchi, stridor Cardiovascular Exam: Present: regular rate, normal rhythm, normal heart sounds. Absent: systolic murmur, diastolic murmur, rubs, gallop, clicks Neurological exam: Present: alert, oriented X3, CN II-XII intact Psychiatric exam: Present: anxious (mildly anxious appearing however no distress ) Course Vital Signs 11/26/18 11/26/18 01:38 03:00 Temperature 97.7 F Pulse Rate 72 63 Respiratory 22 18 Rate Blood Pressure 193/82 184/78 O2 Sat by Pulse 100 96 Oximetry EKG Findings - EKG Comments: EKG Findings:: Normal sinus rhythm, ventricular rate 62, AR interval 184, QTC 432 Medical Decision Making - Medical Decision Making 73-year-old female presents for chief complaint of "panic attack." Patient states she felt like her anxiety was increasing and she was "crawling out of her skin." Patient recently stopped taking Zoloft and Klonopin. CBC CMP unremarkable. Troponin negative. Patient is well-appearing. Chest x-ray negative. EKG was compared to previous EKG, no changes noted. Patient was given Ativan which did help with her symptoms. Patient will follow up with her psychiatrist in 2 days. Patient given 2 pills of 0.5 mg Ativan until she sees her psychiatrist. Patient will return here if she has any worsening symptoms. - Lab Data Result diagrams: 11/26/18 03:35 11/26/18 03:35 Lab Results 11/26/18 11/26/18 11/26/18 Range/Units 03:35 03:35 03:35 WBC 9.9 (3.8-10.6) k/uL RBC 4.45 (3.80-5.40) m/uL Hgb 13.0 (11.4-16.0) gm/dL Hct 40.4 (34.0-46.0) % MCV 90.8 (80.0-100.0) fL MCH 29.1 (25.0-35.0) pg MCHC 32.1 (31.0-37.0) g/dL RDW 14.1 (11.5-15.5) % Plt Count 240 (150-450) k/uL Neutrophils % 56 % Lymphocytes % 33 % Monocytes % 6 % Eosinophils % 1 % Basophils % 0 % Neutrophils # 5.5 (1.3-7.7) k/uL Lymphocytes # 3.3 (1.0-4.8) k/uL Monocytes # 0.6 (0-1.0) k/uL Eosinophils # 0.1 (0-0.7) k/uL Basophils # 0.0 (0-0.2) k/uL PT (9.0-12.0) sec INR (<1.2) APTT (22.0-30.0) sec Sodium 138 (137-145) mmol/L Potassium 4.0 (3.5-5.1) mmol/L Chloride 106 (98-107) mmol/L Carbon Dioxide 25 (22-30) mmol/L Anion Gap 7 mmol/L BUN 29 H (7-17) mg/dL Creatinine 0.89 (0.52-1.04) mg/dL Est GFR (CKD-EPI)AfAm 75 (>60 ml/min/1.73 sqM) Est GFR (CKD-EPI)NonAf 65 (>60 ml/min/1.73 sqM) Glucose 97 (74-99) mg/dL Calcium 10.2 (8.4-10.2) mg/dL Magnesium 2.0 (1.6-2.3) mg/dL Total Bilirubin 0.5 (0.2-1.3) mg/dL AST 29 (14-36) U/L ALT 33 (9-52) U/L Alkaline Phosphatase 67 (38-126) U/L Total Creatine Kinase 154 H (30-135) U/L CK-MB (CK-2) 2.8 H (0.0-2.4) ng/mL CK-MB (CK-2) Rel Index 1.8 Troponin I <0.012 (0.000-0.034) ng/mL Total Protein 6.9 (6.3-8.2) g/dL Albumin 4.1 (3.5-5.0) g/dL 11/26/18 Range/Units 03:35 WBC (3.8-10.6) k/uL RBC (3.80-5.40) m/uL Hgb (11.4-16.0) gm/dL Hct (34.0-46.0) % MCV (80.0-100.0) fL MCH (25.0-35.0) pg MCHC (31.0-37.0) g/dL RDW (11.5-15.5) % Plt Count (150-450) k/uL Neutrophils % % Lymphocytes % % Monocytes % % Eosinophils % % Basophils % % Neutrophils # (1.3-7.7) k/uL Lymphocytes # (1.0-4.8) k/uL Monocytes # (0-1.0) k/uL Eosinophils # (0-0.7) k/uL Basophils # (0-0.2) k/uL PT 9.7 (9.0-12.0) sec INR 0.9 (<1.2) APTT 21.3 L (22.0-30.0) sec Sodium (137-145) mmol/L Potassium (3.5-5.1) mmol/L Chloride (98-107) mmol/L Carbon Dioxide (22-30) mmol/L Anion Gap mmol/L BUN (7-17) mg/dL Creatinine (0.52-1.04) mg/dL Est GFR (CKD-EPI)AfAm (>60 ml/min/1.73 sqM) Est GFR (CKD-EPI)NonAf (>60 ml/min/1.73 sqM) Glucose (74-99) mg/dL Calcium (8.4-10.2) mg/dL Magnesium (1.6-2.3) mg/dL Total Bilirubin (0.2-1.3) mg/dL AST (14-36) U/L ALT (9-52) U/L Alkaline Phosphatase (38-126) U/L Total Creatine Kinase (30-135) U/L CK-MB (CK-2) (0.0-2.4) ng/mL CK-MB (CK-2) Rel Index Troponin I (0.000-0.034) ng/mL Total Protein (6.3-8.2) g/dL Albumin (3.5-5.0) g/dL - EKG Data -: EKG Interpreted by Me (and Dr Marcelo) When compared to previous EKG there are: no significant change Disposition Clinical Impression: Anxiety Disposition: HOME SELF-CARE Condition: Good Instructions (If sedation given, give patient instructions): Generalized Anxiety Disorder (ED) Additional Instructions: Please follow up with her psychiatrist at your appointment. Please follow-up with primary care as well. Please return here if you have any worsening symptoms. Prescriptions: LORazepam [Ativan] 0.5 mg PO DAILY PRN #2 tab PRN Reason: Anxiety Is patient prescribed a controlled substance at d/c from ED?: Yes When asked, does pt state using other controlled substances?: No If prescribed controlled substance>3 days was MAPS reviewed?: Prescribed <3 Days Referrals: Tita Azevedo MD [REFERRING] - 1-2 days Time of Disposition: 04:47
[2018-11-26 04:04] LABS: INR 0.9 (<1.2); Prothrombin Time 9.7 sec (9.0-12.0)
[2018-11-26 04:06] LABS: Creatine Kinase 154 U/L (30-135)
[2018-11-26 04:16] LABS: Partial Thromboplastin Time 21.3 sec (22.0-30.0)
[2018-11-26 04:19] LABS: Creatine Kinase MB 2.8 ng/mL (0.0-2.4); Troponin I <0.012 ng/mL (0.000-0.034)
--- NOTE | 2018-11-26 04:23 | XR ---
EXAM: XR Chest, 2 Views CLINICAL HISTORY: Chest Pain TECHNIQUE: Frontal and lateral views of the chest. COMPARISON: 12/16/2017. FINDINGS: Lungs: Essentially unchanged. No consolidation. Pleural space: Unremarkable. No pneumothorax. Heart: Unremarkable. No cardiomegaly. Mediastinum: Unremarkable. Bones/joints: Unremarkable. IMPRESSION: No radiographic evidence of acute cardiopulmonary process.
[2018-11-26] MEDS ORDERED: ACETAMINOPHEN TAB 325 MG TAB PO STA (04:49)
[2018-11-26 05:23] VITALS: BP 142/70; PULSE 69; TEMP 97.5
== END 2018-11-26 05:30 | disposition home or self-care (01) ==
LOC: EC 01:24
DX: F41.0 Panic disorder [episodic paroxysmal anxiety] (principal); R07.9 Chest pain, unspecified; I25.10 Atherosclerotic heart disease of native coronary artery without angina pectoris; I12.9 Hypertensive chronic kidney disease with stage 1 through stage 4 chronic kidney disease, or unspecified chronic kidney disease; N18.3 Chronic kidney disease, stage 3 (moderate); E07.9 Disorder of thyroid, unspecified; Z79.890 Hormone replacement therapy; Z79.82 Long term (current) use of aspirin; Z79.899 Other long term (current) drug therapy; Z88.0 Allergy status to penicillin; Z88.8 Allergy status to other drugs, medicaments and biological substances; Z95.818 Presence of other cardiac implants and grafts
CPT/HCPCS: 36415; 71046; 80053; 82550; 82553; 83735; 84484; 85025; 85610; 85730; 93005; 99284

== ENCOUNTER 2018-11-30 12:13 | Emergency (ER) | payer MEDICARE, BC ==
[2018-11-30 12:32] VITALS: BP 170/85
--- NOTE | 2018-11-30 13:06 | ED ---
General Adult HPI - General Chief complaint: Recheck/Abnormal Lab/Rx Stated complaint: ALLERGIC REACTION Time Seen by Provider: 11/30/18 12:30 Source: patient, RN notes reviewed Mode of arrival: ambulatory Limitations: no limitations - History of Present Illness Initial comments: This a 73-year-old female presents emergency Department complaining of a bruise on her right wrist. Patient states it occurred after she took Zoloft so she thought it might be related and called her doctor. Her doctor told to come the emergency department to be evaluated to make sure it was not an ALLERGIC reaction. Patient states it does not itch she has no rash anywhere else is just an ecchymotic area over the lateral aspect of the right wrist. Patient states she does not remember having any trauma to the area in the area is only slightly tender where the bruises. Patient has full range of motion of the wrist. Patient denies any other symptoms at this time. Nursing is noted that the patient stated her heart felt like it might be racing earlier and her throat was felt funny. When I spoke with the patient she denied any palpitations currently and stated he did feel like it was racing a little earlier but probably was her anxiety. Patient denied any throat swelling or feeling in her throat to me. - Related Data Home Medications Medication Instructions Recorded Confirmed Levothyroxine Sodium [Levoxyl] 100 mcg PO MOTUWETHFR 04/20/14 12/16/17 clonazePAM [KlonoPIN] 0.25 mg PO BID 04/20/14 12/16/17 cycloSPORINE 0.05% OPHTH SOLN 1 applicator BOTH EYES Q12H 04/20/14 12/16/17 [Restasis 0.05% Ophth Soln] Atorvastatin [Lipitor] 40 mg PO HS 05/22/16 12/16/17 Aspirin [Children's Aspirin] 81 mg PO DAILY 04/21/17 12/16/17 Atenolol [Tenormin] 25 mg PO BID 04/21/17 12/16/17 Fluticasone Nasal [place] [Flonase 1 spr EA NOSTRIL DAILY PRN 04/21/17 12/16/17 Nasal [place]] Gabapentin 600 mg PO TID 04/21/17 12/16/17 Levothyroxine Sodium [Levoxyl] 50 mcg PO SA 04/21/17 12/16/17 Ferrous Sulfate [Feosol] 325 mg PO DAILY 12/16/17 12/16/17 Sertraline HCl [Zoloft] 25 mg PO DAILY 12/16/17 12/16/17 Previous Rx's Medication Instructions Recorded Ondansetron Odt [Zofran Odt] 4 mg PO Q8HR PRN #12 tab 09/04/18 LORazepam [Ativan] 0.5 mg PO DAILY PRN #2 tab 11/26/18 Allergies Allergy/AdvReac Type Severity Reaction Status Date / Time amoxicillin trihydrate Allergy Rash/Hives Verified 11/30/18 12:32 [From Augmentin] clopidogrel bisulfate Allergy Swelling Verified 11/30/18 12:32 [From Plavix] lisinopril Allergy Unknown Verified 11/30/18 12:32 losartan Allergy Unknown Verified 11/30/18 12:32 phenobarbital Allergy Rash/Hives Verified 11/30/18 12:32 potassium clavulanate Allergy Rash/Hives Verified 11/30/18 12:32 [From Augmentin] Review of Systems ROS Statement: Those systems with pertinent positive or pertinent negative responses have been documented in the HPI. ROS Other: All systems not noted in ROS Statement are negative. Past Medical History Past Medical History: Coronary Artery Disease (CAD), Hypertension, Renal Disease , Thyroid Disorder Additional Past Medical History / Comment(s): TACHYCARDIA, STAGE 3 RENAL FAILURE , degenerative cervical spine. History of Any Multi-Drug Resistant Organisms: None Reported Past Surgical History: Back Surgery, Breast Surgery, Heart Catheterization, Orthopedic Surgery, Tonsillectomy Additional Past Surgical History / Comment(s): D&C, cyst removed from spine Past Anesthesia/Blood Transfusion Reactions: Postoperative Nausea & Vomiting ( PONV) Past Psychological History: Anxiety Smoking Status: Never smoker Past Alcohol Use History: Rare Past Drug Use History: None Reported - Past Family History Mother Family Medical History: Cancer Additional Family Medical History / Comment(s): breast cancer, parkinsins, degenerative disc disease, ovary cyst, passed from head injury Father Family Medical History: Coronary Artery Disease (CAD), Hypertension, Myocardial Infarction ([place]) Additional Family Medical History / Comment(s): triple bypass Brother(s) Additional Family Medical History / Comment(s): subdural hematoma Son(s) Family Medical History: No Reported History Sister(s) Family Medical History: Hypertension Additional Family Medical History / Comment(s): parathyroid disorder General Exam - General Exam Comments Initial Comments: GENERAL: Patient is well-developed and well-nourished. Patient is nontoxic and well- hydrated and is in no acute distress. ENT: Neck is soft and supple. No significant lymphadenopathy is noted. Oropharynx is clear. Moist mucous membranes. Neck has full range of motion without eliciting any pain. EYES: The sclera were anicteric and conjunctiva were pink and moist. Extraocular movements were intact and pupils were equal round and reactive to light. Eyelids were unremarkable. PULMONARY: Unlabored respirations. Good breath sounds bilaterally. No audible rales rhonchi or wheezing was noted. CARDIOVASCULAR: There is a regular rate and rhythm without any murmurs gallops or rubs. ABDOMEN: Soft and nontender with normal bowel sounds. No palpable organomegaly was noted. There is no palpable pulsatile mass. SKIN: Skin is clear with no lesions or rashes and otherwise unremarkable. NEUROLOGIC: Patient is alert and oriented x3. Cranial nerves II through XII are grossly intact. Motor and sensory are also intact. Normal speech, volume and content. Symmetrical smile. MUSCULOSKELETAL: Normal extremities with adequate strength and full range of motion. LYMPHATICS: No significant lymphadenopathy is noted PSYCHIATRIC: Mildly anxious Limitations: no limitations Course Vital Signs 11/30/18 12:28 Temperature 98.6 F Pulse Rate 67 Respiratory 20 Rate Blood Pressure 170/85 O2 Sat by Pulse 98 Oximetry Disposition Clinical Impression: Contusion Disposition: HOME SELF-CARE Condition: Good Instructions (If sedation given, give patient instructions): Contusion in Adults (ED) Referrals: Nonstaff,Physician [Primary Care Provider] - 1-2 days Time of Disposition: 13:07
[2018-11-30 13:28] VITALS: PULSE 59; RESP 14; TEMP 97.8
[2018-11-30] MEDS ORDERED: ONDANSETRON ODT 4 MG TAB PO STA (13:28)
== END 2018-11-30 13:30 | disposition home or self-care (01) ==
LOC: EC 12:13
DX: S60.211A Contusion of right wrist, initial encounter (principal); I25.10 Atherosclerotic heart disease of native coronary artery without angina pectoris; I12.9 Hypertensive chronic kidney disease with stage 1 through stage 4 chronic kidney disease, or unspecified chronic kidney disease; N18.3 Chronic kidney disease, stage 3 (moderate); E07.9 Disorder of thyroid, unspecified; F41.9 Anxiety disorder, unspecified; Z95.818 Presence of other cardiac implants and grafts; Z79.890 Hormone replacement therapy; Z79.82 Long term (current) use of aspirin; Z79.899 Other long term (current) drug therapy; Z88.0 Allergy status to penicillin; Z88.8 Allergy status to other drugs, medicaments and biological substances; X58.XXXA Exposure to other specified factors, initial encounter
CPT/HCPCS: 99283

== ENCOUNTER 2021-07-02 01:03 | Emergency (ER) | payer MEDICARE, BC ==
[2021-07-02 01:09] VITALS: TEMP 97.8
[2021-07-02] MEDS ORDERED: cloNIDine HCL 0.2 MG TAB PO STA (01:40)
[2021-07-02 02:40] LABS: Basophils % (A) 1 %; Eosinophils # (A) 0.2 k/uL (0-0.7); Eosinophils % (A) 2 %; HCT 40.6 % (34.0-46.0); HGB 13.7 gm/dL (11.4-16.0); Lymphocytes # (A) 1.9 k/uL (1.0-4.8); Lymphocytes % (A) 25 %; MCH 30.8 pg (25.0-35.0); MCHC 33.8 g/dL (31.0-37.0); MCV 91.3 fL (80.0-100.0); Mean Platelet Volume 6.9; Monocytes # (A) 0.4 k/uL (0-1.0); Monocytes % (A) 5 %; Neutrophils # (A) 5.2 k/uL (1.3-7.7); Neutrophils % (A) 65 %; Platelet Count 293 k/uL (150-450); RBC 4.45 m/uL (3.80-5.40); RDW 13.8 % (11.5-15.5); WBC 7.9 k/uL (3.8-10.6)
[2021-07-02 02:44] VITALS: PULSE 62; RESP 20
[2021-07-02 02:54] LABS: Albumin 4.1 g/dL (3.5-5.0); Calcium 9.7 mg/dL (8.4-10.2); Potassium 4.5 mmol/L (3.5-5.1); Total Bilirubin 0.6 mg/dL (0.2-1.3); Total Protein 7.2 g/dL (6.3-8.2)
--- NOTE | 2021-07-02 03:05 | ED ---
General Adult HPI - General Chief complaint: Recheck/Abnormal Lab/Rx Stated complaint: High BP Time Seen by Provider: 07/02/21 01:12 Source: patient Mode of arrival: ambulatory Limitations: no limitations - History of Present Illness Initial comments: This patient is a 75-year-old woman who presents to be evaluated for elevated blood pressure. The patient states that she had checked it is on found that it was higher than usual. She states she was not having symptoms. No headache, chest pain, back or abdominal pain, dyspnea, palpitations or other symptoms. Patient states that she was then checking her blood pressure every few minutes and found that it kept going up. It got to above 200/90 so she phoned one of the [facility] service lines and was advised to be seen in the emergency department. Patient states she is still feeling relatively well though a little bit anxious. -: hour(s) Severity scale (1-10): 0 Improves with: none Worsens with: none Associated Symptoms: denies other symptoms Treatments Prior to Arrival: none - Related Data Home Medications Medication Instructions Recorded Confirmed Levothyroxine Sodium [Levoxyl] 100 mcg PO MOTUWETHFR 04/20/14 12/16/17 clonazePAM [KlonoPIN] 0.25 mg PO BID 04/20/14 12/16/17 cycloSPORINE 0.05% OPHTH SOLN 1 applicator BOTH EYES Q12H 04/20/14 12/16/17 [Restasis 0.05% Ophth Soln] Atorvastatin [Lipitor] 40 mg PO HS 05/22/16 12/16/17 Aspirin [Children's Aspirin] 81 mg PO DAILY 04/21/17 12/16/17 Fluticasone Nasal [place] [Flonase 1 spr EA NOSTRIL DAILY PRN 04/21/17 12/16/17 Nasal [place]] Gabapentin 600 mg PO TID 04/21/17 12/16/17 Levothyroxine Sodium [Levoxyl] 50 mcg PO SA 04/21/17 12/16/17 atenoloL [Tenormin] 25 mg PO BID 04/21/17 12/16/17 Ferrous Sulfate [Feosol] 325 mg PO DAILY 12/16/17 12/16/17 Sertraline HCl [Zoloft] 25 mg PO DAILY 12/16/17 12/16/17 Previous Rx's Medication Instructions Recorded Ondansetron Odt [Zofran Odt] 4 mg PO Q8HR PRN #12 tab 09/04/18 LORazepam [Ativan] 0.5 mg PO DAILY PRN #2 tab 11/26/18 Allergies Allergy/AdvReac Type Severity Reaction Status Date / Time amoxicillin trihydrate Allergy Rash/Hives Verified 07/02/21 01:09 [From Augmentin] clopidogrel bisulfate Allergy Swelling Verified 07/02/21 01:09 [From Plavix] lisinopril Allergy Unknown Verified 07/02/21 01:09 losartan Allergy Unknown Verified 07/02/21 01:09 phenobarbital Allergy Rash/Hives Verified 07/02/21 01:09 potassium clavulanate Allergy Rash/Hives Verified 07/02/21 01:09 [From Augmentin] Review of Systems ROS Statement: Those systems with pertinent positive or pertinent negative responses have been documented in the HPI. ROS Other: All systems not noted in ROS Statement are negative. Constitutional: Denies: fever, chills Respiratory: Denies: cough, dyspnea Cardiovascular: Denies: chest pain, palpitations, orthopnea, edema Gastrointestinal: Denies: abdominal pain, vomiting, diarrhea Genitourinary: Denies: dysuria Musculoskeletal: Denies: back pain Skin: Denies: rash Neurological: Denies: headache, weakness, numbness, paresthesias, confusion Psychiatric: Reports: anxiety Past Medical History Past Medical History: Coronary Artery Disease (CAD), Hypertension, Renal Disease, Thyroid Disorder Additional Past Medical History / Comment(s): TACHYCARDIA, STAGE 3 RENAL FAILURE, degenerative cervical spine. History of Any Multi-Drug Resistant Organisms: None Reported Past Surgical History: Back Surgery, Breast Surgery, Heart Catheterization, Orthopedic Surgery, Tonsillectomy Additional Past Surgical History / Comment(s): D&C, cyst removed from spine Past Anesthesia/Blood Transfusion Reactions: Postoperative Nausea & Vomiting (PONV) Past Psychological History: Anxiety Smoking Status: Never smoker Past Alcohol Use History: Rare Past Drug Use History: None Reported - Past Family History Mother Family Medical History: Cancer Additional Family Medical History / Comment(s): breast cancer, parkinsins, degenerative disc disease, ovary cyst, passed from head injury Father Family Medical History: Coronary Artery Disease (CAD), Hypertension, Myocardial Infarction ([place]) Additional Family Medical History / Comment(s): triple bypass Brother(s) Additional Family Medical History / Comment(s): subdural hematoma Son(s) Family Medical History: No Reported History Sister(s) Family Medical History: Hypertension Additional Family Medical History / Comment(s): parathyroid disorder General Exam Limitations: no limitations General appearance: alert, in no apparent distress Head exam: Present: atraumatic, normocephalic Eye exam: Present: normal appearance. Absent: scleral icterus, conjunctival injection ENT exam: Present: normal oropharynx Neck exam: Present: normal inspection, full ROM Respiratory exam: Present: normal lung sounds bilaterally. Absent: respiratory distress, wheezes, rales, rhonchi, stridor Cardiovascular Exam: Present: regular rate, normal rhythm, normal heart sounds. Absent: systolic murmur, diastolic murmur, rubs, gallop GI/Abdominal exam: Present: soft. Absent: distended, tenderness, guarding, rebound, rigid, mass Extremities exam: Present: normal inspection, normal capillary refill. Absent: pedal edema, calf tenderness Back exam: Present: normal inspection Neurological exam: Present: alert Skin exam: Present: warm, dry, intact, normal color. Absent: rash Course Vital Signs 07/02/21 07/02/21 01:05 02:38 Temperature 97.8 F Pulse Rate 83 62 Respiratory 18 20 Rate Blood Pressure 213/88 199/82 O2 Sat by Pulse 97 99 Oximetry EKG Findings - EKG Results: EKG: interpreted by CALEB, sinus rhythm (Rate 68 bpm), normal axis, normal QRS, normal ST/T Medical Decision Making - Medical Decision Making Reevaluation, recheck the patient's blood pressure. It was 164/71. Patient fee ls well without any symptoms. She would like to go home and follow with her physician. I discussed appropriate further care and also return parameters. - Lab Data Result diagrams: 07/02/21 02:08 07/02/21 02:08 Lab Results 07/02/21 07/02/21 07/02/21 Range/Units 02:08 02:08 02:08 WBC 7.9 (3.8-10.6) k/uL RBC 4.45 (3.80-5.40) m/uL Hgb 13.7 (11.4-16.0) gm/dL Hct 40.6 (34.0-46.0) % MCV 91.3 (80.0-100.0) fL MCH 30.8 (25.0-35.0) pg MCHC 33.8 (31.0-37.0) g/dL RDW 13.8 (11.5-15.5) % Plt Count 293 (150-450) k/uL MPV 6.9 Neutrophils % 65 % Lymphocytes % 25 % Monocytes % 5 % Eosinophils % 2 % Basophils % 1 % Neutrophils # 5.2 (1.3-7.7) k/uL Lymphocytes # 1.9 (1.0-4.8) k/uL Monocytes # 0.4 (0-1.0) k/uL Eosinophils # 0.2 (0-0.7) k/uL Basophils # 0.0 (0-0.2) k/uL Sodium 140 (137-145) mmol/L Potassium 4.5 (3.5-5.1) mmol/L Chloride 105 (98-107) mmol/L Carbon Dioxide 27 (22-30) mmol/L Anion Gap 8 mmol/L BUN 22 H (7-17) mg/dL Creatinine 0.88 (0.52-1.04) mg/dL Est GFR (CKD-EPI)AfAm 75 (>60 ml/min/1.73 sqM) Est GFR (CKD-EPI)NonAf 65 (>60 ml/min/1.73 sqM) Glucose 104 H (74-99) mg/dL Calcium 9.7 (8.4-10.2) mg/dL Total Bilirubin 0.6 (0.2-1.3) mg/dL AST 35 (14-36) U/L ALT 27 (4-34) U/L Alkaline Phosphatase 83 (38-126) U/L Troponin I <0.012 (0.000-0.034) ng/mL Total Protein 7.2 (6.3-8.2) g/dL Albumin 4.1 (3.5-5.0) g/dL Disposition Clinical Impression: Hypertension Disposition: HOME SELF-CARE Condition: Good Instructions (If sedation given, give patient instructions): Hypertension (ED) Is patient prescribed a controlled substance at d/c from ED?: No Referrals: Nonstaff,Physician [Primary Care Provider] - 1-2 days
[2021-07-02 03:53] VITALS: BP 164/71
== END 2021-07-02 03:53 | disposition home or self-care (01) ==
LOC: EC 01:03
DX: I12.9 Hypertensive chronic kidney disease with stage 1 through stage 4 chronic kidney disease, or unspecified chronic kidney disease (principal); N18.30 Chronic kidney disease, stage 3 unspecified; E03.9 Hypothyroidism, unspecified; F41.9 Anxiety disorder, unspecified; I25.10 Atherosclerotic heart disease of native coronary artery without angina pectoris; Z88.8 Allergy status to other drugs, medicaments and biological substances; Z88.0 Allergy status to penicillin; Z79.899 Other long term (current) drug therapy; Z79.890 Hormone replacement therapy; Z79.82 Long term (current) use of aspirin; Z88.1 Allergy status to other antibiotic agents
CPT/HCPCS: 36415; 80053; 84484; 85025; 93005; 99283

== ENCOUNTER 2023-02-21 09:58 | Emergency (ER) | payer MEDICARE ==
[2023-02-21] MEDS ORDERED: SODIUM CHLORIDE 0.9% 1,000 ML IV STA (10:16)
[2023-02-21] MEDS ORDERED: PANTOPRAZOLE 40 MG/10 ML VIAL IVP STA (10:17)
[2023-02-21] MEDS ORDERED: ACETAMINOPHEN TAB 500 MG TAB PO STA (10:24)
[2023-02-21] MEDS ORDERED: ONDANSETRON 4 MG/2 ML VIAL IVP STA (10:24)
[2023-02-21 11:04] LABS: Basophils % (A) 0 %; Eosinophils # (A) 0.1 k/uL (0-0.7); Eosinophils % (A) 1 %; HCT 39.1 % (34.0-46.0); HGB 12.8 gm/dL (11.4-16.0); Lymphocytes # (A) 1.1 k/uL (1.0-4.8); Lymphocytes % (A) 12 %; MCH 29.6 pg (25.0-35.0); MCHC 32.8 g/dL (31.0-37.0); MCV 90.2 fL (80.0-100.0); Mean Platelet Volume 8.2; Monocytes # (A) 0.3 k/uL (0-1.0); Monocytes % (A) 3 %; Neutrophils # (A) 7.7 k/uL (1.3-7.7); Neutrophils % (A) 81 %; Platelet Count 203 k/uL (150-450); RBC 4.34 m/uL (3.80-5.40); RDW 13.7 % (11.5-15.5); WBC 9.5 k/uL (3.8-10.6)
[2023-02-21 11:11] LABS: Albumin 4.2 g/dL (3.5-5.0); Calcium 9.5 mg/dL (8.4-10.2); Magnesium 1.9 mg/dL (1.6-2.3); Potassium 4.5 mmol/L (3.5-5.1); Total Bilirubin 0.9 mg/dL (0.2-1.3); Total Protein 7.1 g/dL (6.3-8.2)
[2023-02-21 11:27] VITALS: RESP 18; TEMP 97.6
[2023-02-21 11:29] LABS: INR 0.9 (<1.2); Prothrombin Time 9.9 sec (9.0-12.0)
[2023-02-21 11:54] LABS: Partial Thromboplastin Time 21.6 sec (22.0-30.0)
--- NOTE | 2023-02-21 12:25 | CT ---
EXAMINATION TYPE: CT abdomen pelvis w con DATE OF EXAM: 02/21/2023 HISTORY: Abdominal pain, bright red rectal bleeding. No GI protocol per provider CT DLP: 1092.1mGycm Automated Exposure Control for Dose Reduction was Utilized. CONTRAST: CT scan of the abdomen and pelvis is performed without oral and with IV Contrast, patient injected wi th 100 mL of Isovue 300. COMPARISON: None. FINDINGS: LUNG BASES: Dependent atelectasis. Mild linear scarring and/or atelectasis. Some calcification at lev el of the aortic valve. LIVER/GB: No significant abnormality is appreciated. PANCREAS: No significant abnormality is seen. SPLEEN: No significant abnormality is seen. ADRENALS: No significant abnormality is seen. KIDNEYS: No significant abnormality is seen. BOWEL: Suboptimal evaluation of bowel without enteric contrast. Stomach poorly distended and suboptim ally evaluated. No suspicious small or large bowel dilatation. Normal-appearing appendix seen inferio rly from the base of cecum in the right lower quadrant. Beginning in the distal transverse colon ther e is mild to moderate wall thickening which becomes moderate to severe in the left colon extending in to the sigmoid rectal colon of the pelvis. No free air or mesenteric air is identified. UTERUS/ADNEXA: Anteverted uterus. LYMPH NODES: No greater than 1cm abdominal or pelvic lymph nodes are appreciated. OSSEOUS STRUCTURES: Artifact from posterior fusion hardware bilaterally at L3-L5 levels is seen. Slig ht grade 1 anterolisthesis L4 on L5. Moderate multilevel disc space narrowing above the L3 level is p resent. Underlying dextroconvex scoliosis centered at L3 level is seen. OTHER: Mild calcified plaque of the aorta extends into branch vessels. IMPRESSION: Long segment colitis from the distal transverse colon through the rectum. Differential in cludes infectious and/or inflammatory etiologies. Ischemic etiology much less likely.
[2023-02-21] MEDS ORDERED: LEVOFLOXACIN 500 MG TAB PO STA (12:47)
[2023-02-21] MEDS ORDERED: metroNIDAZOLE 500 MG TAB PO STA (12:49)
--- NOTE | 2023-02-21 12:51 | ED ---
GI Bleed HPI - General Chief complaint: GI Bleed Stated complaint: Rectal Bleeding - possible food poisoning Time Seen by Provider: 02/21/23 10:15 Source: patient Mode of arrival: ambulatory Limitations: no limitations - History of Present Illness Initial comments: Patient is a 77-year-old female who presents to the emergency department for GI bleeding. Patient states last night she started to have lower abdominal cramping and diarrhea. Symptoms lasted throughout the night. No nausea or vomiting. No fever or chills. This morning patient had 2-3 episodes of bright red blood in stool. States she possibly had an ulcer in the past which may have caused GI bleed. She takes a baby aspirin otherwise no blood thinner use. States her last colonoscopy was one year ago and it was normal. Patient states she has little pain now but she wanted to have the blood in stool evaluated. She has not taken any pain medication. No chest pain or shortness of breath. Social alcohol use. Denies tobacco use and other illicit drug use. Denies consistent use of anti-inflammatory medication. - Related Data Home Medications Medication Instructions Recorded Confirmed Levothyroxine Sodium [Levoxyl] 100 mcg PO MOTUWETHFR 04/20/14 12/16/17 clonazePAM [KlonoPIN] 0.25 mg PO BID 04/20/14 12/16/17 cycloSPORINE 0.05% OPHTH SOLN 1 applicator BOTH EYES Q12H 04/20/14 12/16/17 [Restasis 0.05% Ophth Soln] Atorvastatin [Lipitor] 40 mg PO HS 05/22/16 12/16/17 Aspirin [Children's Aspirin] 81 mg PO DAILY 04/21/17 12/16/17 Fluticasone Nasal [place] [Flonase 1 spr EA NOSTRIL DAILY PRN 04/21/17 12/16/17 Nasal [place]] Gabapentin 600 mg PO TID 04/21/17 12/16/17 Levothyroxine Sodium [Levoxyl] 50 mcg PO SA 04/21/17 12/16/17 atenoloL [Tenormin] 25 mg PO BID 04/21/17 12/16/17 Ferrous Sulfate [Feosol] 325 mg PO DAILY 12/16/17 12/16/17 Sertraline HCl [Zoloft] 25 mg PO DAILY 12/16/17 12/16/17 Previous Rx's Medication Instructions Recorded Ondansetron Odt [Zofran Odt] 4 mg PO Q8HR PRN #12 tab 09/04/18 LORazepam [Ativan] 0.5 mg PO DAILY PRN #2 tab 11/26/18 Ciprofloxacin HCl [Cipro] 500 mg PO Q12HR #14 tablet 02/21/23 metroNIDAZOLE [Flagyl] 500 mg PO Q8H #21 tab 02/21/23 Allergies Allergy/AdvReac Type Severity Reaction Status Date / Time amoxicillin trihydrate Allergy Rash/Hives Verified 02/21/23 10:07 [From Augmentin] clopidogrel bisulfate Allergy Swelling Verified 02/21/23 10:07 [From Plavix] lisinopril Allergy Unknown Verified 02/21/23 10:07 losartan Allergy Unknown Verified 02/21/23 10:07 phenobarbital Allergy Rash/Hives Verified 02/21/23 10:07 potassium clavulanate Allergy Rash/Hives Verified 02/21/23 10:07 [From Augmentin] Review of Systems ROS Statement: Those systems with pertinent positive or pertinent negative responses have been documented in the HPI. ROS Other: All systems not noted in ROS Statement are negative. Past Medical History Past Medical History: Coronary Artery Disease (CAD), Hypertension, Renal Disease, Thyroid Disorder Additional Past Medical History / Comment(s): TACHYCARDIA, STAGE 3 RENAL FAILURE, degenerative cervical spine. History of Any Multi-Drug Resistant Organisms: None Reported Past Surgical History: Back Surgery, Breast Surgery, Heart Catheterization, Orth opedic Surgery, Tonsillectomy Additional Past Surgical History / Comment(s): D&C, cyst removed from spine Past Anesthesia/Blood Transfusion Reactions: Postoperative Nausea & Vomiting (PONV) Past Psychological History: Anxiety Smoking Status: Never smoker Past Alcohol Use History: Rare Past Drug Use History: None Reported - Past Family History Mother Family Medical History: Cancer Additional Family Medical History / Comment(s): breast cancer, parkinsins, degenerative disc disease, ovary cyst, passed from head injury Father Family Medical History: Coronary Artery Disease (CAD), Hypertension, Myocardial Infarction ([place]) Additional Family Medical History / Comment(s): triple bypass Brother(s) Additional Family Medical History / Comment(s): subdural hematoma Son(s) Family Medical History: No Reported History Sister(s) Family Medical History: Hypertension Additional Family Medical History / Comment(s): parathyroid disorder General Exam Limitations: no limitations General appearance: alert, in no apparent distress Head exam: Present: atraumatic, normocephalic, normal inspection Eye exam: Present: normal appearance, PERRL, EOMI. Absent: scleral icterus, conjunctival injection, periorbital swelling Respiratory exam: Present: normal lung sounds bilaterally. Absent: respiratory distress, wheezes, rales, rhonchi, stridor Cardiovascular Exam: Present: regular rate, normal rhythm, normal heart sounds. Absent: systolic murmur, diastolic murmur, rubs, gallop, clicks GI/Abdominal exam: Present: soft, normal bowel sounds. Absent: distended, tenderness, guarding, rebound, rigid Rectal exam: Present: normal rectal tone, heme (+) stool, bloody stool. Absent: hemorrhoids Extremities exam: Present: normal inspection, normal capillary refill Neurological exam: Present: alert, oriented X3, CN II-XII intact Psychiatric exam: Present: normal affect, normal mood Skin exam: Present: warm, dry, intact, normal color. Absent: rash Course Vital Signs 02/21/23 02/21/23 02/21/23 10:05 11:19 13:11 Temperature 97.4 F L 97.6 F Pulse Rate 60 60 62 Respiratory 20 18 18 Rate Blood Pressure 175/84 154/56 152/62 O2 Sat by Pulse 99 97 98 Oximetry Medical Decision Making - Medical Decision Making Was pt. sent in by a medical professional or institution (, PA, FILLING STATION ATTENDANT, urgent care, hospital, or fdc...) When possible be specific @ -No Did you speak to anyone other than the patient for history (EMS, parent, family, police, friend...)? What history was obtained from this source @ -No Did you review nursing and triage notes (agree or disagree)? Why? @ -I reviewed and agree with nursing and triage notes Were old charts reviewed (outside hosp., previous admission, EMS record, old EKG, old radiological studies, urgent care reports/EKG's, fdc records)? Report findings @ -No old charts were reviewed Differential Diagnosis (chest pain, altered mental status, abdominal pain women, abdominal pain men, vaginal bleeding, weakness, fever, dyspnea, syncope, headache, dizziness, GI bleed, back pain, seizure, CVA, palpatations, mental health)? @ -Differential GI Bleed: Esophageal varices, aortoenteric fistula, Melonie-Fernando, gastritis, peptic ulcer disease, diverticulosis, inflammatory bowel disease, hemorrhoids, fissure, colitis, malignancy, Meckels diverticulum, this is not meant to be an all- inclusive list. EKG interpreted by me (3pts min.). @ -As above X-rays interpreted by me (1pt min.). @ -None done CT interpreted by me (1pt min.). @ -Yes, CT of the abdomen and pelvis with contrast shows long segment colitis in the distal transverse colon to the rectum U/S interpreted by me (1pt. min.). @ -None done What testing was considered but not performed or refused? (CT, X-rays, U/S, labs)? Why? @ -None What meds were considered but not given or refused? Why? @ -None Did you discuss the management of the patient with other professionals (professionals i.e. , PA, FILLING STATION ATTENDANT, lab, RT, psych nurse, drug abuse social worker, steel fabricating supervisor, teacher, seal delivery vehicle officer, case management manager)? Give summary @ -No Was smoking cessation discussed for >3mins.? @ -No Was critical care preformed (if so, how long)? @ -No Were there social determinants of health that impacted care today? How? (Homelessness, low income, unemployed, alcoholism, drug addiction, transportation, low edu. Level, literacy, decrease access to med. care, usp, rehab)? @ -No Was there de-escalation of care discussed even if they declined (Discuss DNR or withdrawal of care, Hospice)? DNR status @ -No What co-morbidities impacted this encounter? (DM, HTN, Smoking, COPD, CAD, Cancer, CVA, ARF, Chemo, Hep., AIDS, mental health diagnosis, sleep apnea, morbid obesity)? @ -None Was patient admitted / discharged? Hospital course, mention meds given and route, prescriptions, significant lab abnormalities, going to OR and other pertinent info. @ -Patient presenting for evaluation of GI bleed. Gross blood is visualized during rectal exam there is no active bleeding. The abdomen is soft and nontender. Laboratory studies obtained. Hemoglobin is normal at 12.8. Hemoccult is positive. No leukocytosis. There is mild acute kidney injury, creatinine at 1.17, BUN at 25. Patient given fluid bolus, Protonix. She continued to rest comfortably during visit she did not have any further episodes of bleeding. CT shows extensive colitis in the distal transverse colon to the rectum. Results discussed with patient. I did recommend admission for IV antibiotics however patient requesting to go home. Patient is afebrile, no active bleeding, no vomiting, stable hemoglobin, no leukocytosis-discharge home with strict return parameters is reasonable. Patient will be discharged with Levaquin and Flagyl. Undiagnosed new problem with uncertain prognosis? @ -No Drug Therapy requiring intensive monitoring for toxicity (Heparin, Nitro, Insulin, Cardizem)? @ -No Were any procedures done? @ -No Diagnosis/symptom? @ -Colitis Acute, or Chronic, or Acute on Chronic? @ -Acute Uncomplicated (without systemic symptoms) or Complicated (systemic symptoms)? @ -Uncomplicated Side effects of treatment? @ -No Exacerbation, Progression, or Severe Exacerbation? @ -No Poses a threat to life or bodily function? How? (Chest pain, [place], [place], pneumonia, PE, COPD, DKA, ARF, appy, cholecystitis, CVA, Diverticulitis, Homicidal, Suicidal, threat to staff... and all critical care pts) @ -No Dr. Gutierrez is my attending - Lab Data Result diagrams: 02/21/23 10:15 02/21/23 10:15 Lab Results 02/21/23 02/21/23 02/21/23 Range/Units 10:15 10:15 10:15 WBC 9.5 (3.8-10.6) k/uL RBC 4.34 (3.80-5.40) m/uL Hgb 12.8 (11.4-16.0) gm/dL Hct 39.1 (34.0-46.0) % MCV 90.2 (80.0-100.0) fL MCH 29.6 (25.0-35.0) pg MCHC 32.8 (31.0-37.0) g/dL RDW 13.7 (11.5-15.5) % Plt Count 203 (150-450) k/uL MPV 8.2 Neutrophils % 81 % Lymphocytes % 12 % Monocytes % 3 % Eosinophils % 1 % Basophils % 0 % Neutrophils # 7.7 (1.3-7.7) k/uL Lymphocytes # 1.1 (1.0-4.8) k/uL Monocytes # 0.3 (0-1.0) k/uL Eosinophils # 0.1 (0-0.7) k/uL Basophils # 0.0 (0-0.2) k/uL PT 9.9 (9.0-12.0) sec INR 0.9 (<1.2) APTT 21.6 L (22.0-30.0) sec Sodium 135 L (137-145) mmol/L Potassium 4.5 (3.5-5.1) mmol/L Chloride 103 (98-107) mmol/L Carbon Dioxide 24 (22-30) mmol/L Anion Gap 8 mmol/L BUN 25 H (7-17) mg/dL Creatinine 1.17 H (0.52-1.04) mg/dL Est GFR (CKD-EPI)AfAm 52 (>60 ml/min/1.73 sqM) Est GFR (CKD-EPI)NonAf 45 (>60 ml/min/1.73 sqM) Glucose 115 H (74-99) mg/dL Plasma Lactic Acid Abner (0.7-2.0) mmol/L Calcium 9.5 (8.4-10.2) mg/dL Magnesium 1.9 (1.6-2.3) mg/dL Total Bilirubin 0.9 (0.2-1.3) mg/dL AST 26 (14-36) U/L ALT 20 (4-34) U/L Alkaline Phosphatase 84 (38-126) U/L Total Protein 7.1 (6.3-8.2) g/dL Albumin 4.2 (3.5-5.0) g/dL Lipase 95 (23-300) U/L Stool Occult Blood (Negative) Blood Type Blood Type Confirm Blood Type Recheck Bld Type Recheck Status Antibody Screen Spec Expiration Date 02/21/23 02/21/23 02/21/23 Range/Units 10:15 10:16 10:17 WBC (3.8-10.6) k/uL RBC (3.80-5.40) m/uL Hgb (11.4-16.0) gm/dL Hct (34.0-46.0) % MCV (80.0-100.0) fL MCH (25.0-35.0) pg MCHC (31.0-37.0) g/dL RDW (11.5-15.5) % Plt Count (150-450) k/uL MPV Neutrophils % % Lymphocytes % % Monocytes % % Eosinophils % % Basophils % % Neutrophils # (1.3-7.7) k/uL Lymphocytes # (1.0-4.8) k/uL Monocytes # (0-1.0) k/uL Eosinophils # (0-0.7) k/uL Basophils # (0-0.2) k/uL PT (9.0-12.0) sec INR (<1.2) APTT (22.0-30.0) sec Sodium (137-145) mmol/L Potassium (3.5-5.1) mmol/L Chloride (98-107) mmol/L Carbon Dioxide (22-30) mmol/L Anion Gap mmol/L BUN (7-17) mg/dL Creatinine (0.52-1.04) mg/dL Est GFR (CKD-EPI)AfAm (>60 ml/min/1.73 sqM) Est GFR (CKD-EPI)NonAf (>60 ml/min/1.73 sqM) Glucose (74-99) mg/dL Plasma Lactic Acid Abner 1.7 (0.7-2.0) mmol/L Calcium (8.4-10.2) mg/dL Magnesium (1.6-2.3) mg/dL Total Bilirubin (0.2-1.3) mg/dL AST (14-36) U/L ALT (4-34) U/L Alkaline Phosphatase (38-126) U/L Total Protein (6.3-8.2) g/dL Albumin (3.5-5.0) g/dL Lipase (23-300) U/L Stool Occult Blood Positive H (Negative) Blood Type A Positive Blood Type Confirm Blood Type Recheck No Previous Record Bld Type Recheck Status CABO Indicated Antibody Screen NEGATIVE Spec Expiration Date 02/24/2023 - 231502/21/23 Range/Units 10:30 WBC (3.8-10.6) k/uL RBC (3.80-5.40) m/uL Hgb (11.4-16.0) gm/dL Hct (34.0-46.0) % MCV (80.0-100.0) fL MCH (25.0-35.0) pg MCHC (31.0-37.0) g/dL RDW (11.5-15.5) % Plt Count (150-450) k/uL MPV Neutrophils % % Lymphocytes % % Monocytes % % Eosinophils % % Basophils % % Neutrophils # (1.3-7.7) k/uL Lymphocytes # (1.0-4.8) k/uL Monocytes # (0-1.0) k/uL Eosinophils # (0-0.7) k/uL Basophils # (0-0.2) k/uL PT (9.0-12.0) sec INR (<1.2) APTT (22.0-30.0) sec Sodium (137-145) mmol/L Potassium (3.5-5.1) mmol/L Chloride (98-107) mmol/L Carbon Dioxide (22-30) mmol/L Anion Gap mmol/L BUN (7-17) mg/dL Creatinine (0.52-1.04) mg/dL Est GFR (CKD-EPI)AfAm (>60 ml/min/1.73 sqM) Est GFR (CKD-EPI)NonAf (>60 ml/min/1.73 sqM) Glucose (74-99) mg/dL Plasma Lactic Acid Abner (0.7-2.0) mmol/L Calcium (8.4-10.2) mg/dL Magnesium (1.6-2.3) mg/dL Total Bilirubin (0.2-1.3) mg/dL AST (14-36) U/L ALT (4-34) U/L Alkaline Phosphatase (38-126) U/L Total Protein (6.3-8.2) g/dL Albumin (3.5-5.0) g/dL Lipase (23-300) U/L Stool Occult Blood (Negative) Blood Type Blood Type Confirm A Positive Blood Type Recheck Bld Type Recheck Status Antibody Screen Spec Expiration Date Disposition Clinical Impression: Colitis Disposition: HOME SELF-CARE Condition: Good Instructions (If sedation given, give patient instructions): Gastrointestinal Bleeding (ED), Colitis (ED) Additional Instructions: Take medication as directed. Please follow-up with your primary care provider in 1-2 days. Return to the emergency department if you experience new, concerning, or worsening symptoms, including but not limited to increase bleeding or pain. Prescriptions: Ciprofloxacin HCl [Cipro] 500 mg PO Q12HR #14 tablet metroNIDAZOLE [Flagyl] 500 mg PO Q8H #21 tab Is patient prescribed a controlled substance at d/c from ED?: No Referrals: Nonstaff,Physician [Primary Care Provider] - 1-2 days
[2023-02-21 13:13] VITALS: BP 152/62; PULSE 62
== END 2023-02-21 13:14 | disposition home or self-care (01) ==
LOC: EC 09:58
DX: K52.9 Noninfective gastroenteritis and colitis, unspecified (principal); I12.9 Hypertensive chronic kidney disease with stage 1 through stage 4 chronic kidney disease, or unspecified chronic kidney disease; N18.30 Chronic kidney disease, stage 3 unspecified; I25.10 Atherosclerotic heart disease of native coronary artery without angina pectoris; E07.9 Disorder of thyroid, unspecified; F41.9 Anxiety disorder, unspecified; Z79.890 Hormone replacement therapy; Z79.82 Long term (current) use of aspirin; Z79.899 Other long term (current) drug therapy; Z88.0 Allergy status to penicillin; Z88.1 Allergy status to other antibiotic agents; Z88.8 Allergy status to other drugs, medicaments and biological substances
CPT/HCPCS: 36415; 86900; 86901; 80053; 83605; 83690; 83735; 85025; 85610; 85730; 86850; 82272; 74177; 99285; 96374; 96375; 96361 ×2; J2405; C9113; Q9967

== ENCOUNTER 2023-03-09 19:09 | Inpatient (IN) | payer MEDICARE ==
--- NOTE | 2023-03-09 20:44 | ED ---
General Adult HPI - General Source: patient Mode of arrival: wheelchair Limitations: no limitations <Chandni Oviedo - Last Filed: 03/09/23 20:39> <Shivani Baker - Last Filed: 03/10/23 01:44> - General Chief complaint: Weakness Stated complaint: Weakness,Fever - History of Present Illness Initial comments: 77-year-old female presents to the emergency department chief complaint of generalized weakness. Patient states that this started today. She states that she has been having diarrhea since she was came to the emergency department 2 w eeks ago but has been worse today. She states she had blood in the stool at that time but denies blood in the stool now. She states that she has gotten lightheaded and close to passing out multiple times today. She states she took her temperature earlier today and it was 100.2. She reports taking 2 Tylenol at that time. Past medical history includes hypertension, hyperlipidemia, thyroid disorder, CKD. (Chandni Oviedo) 77 year old female past medical history of coronary artery disease, hypertension, chronic renal failure who presents to the emergency department with continued symptoms of abdominal pain, fever. She was seen in the emergency department on the third for similar complaint. Laboratory studies were performed as well as a CT. Patient did have a long segment of colitis from the distal transverse colon to the rectum. She was offered admission however patient wanted to go home and therefore she was discharged on Cipro and Flagyl. Finished these medications last Sunday. States that her bloody stools have resolved however she continues to have diarrhea. Today the patient had a fever of 100.2 and took 2 Tylenol. She has generalized abdominal ache with nausea. She has not been eating much. Denies urinary complaints to include dysuria, hem aturia or difficulty voiding. No chest pain or shortness of breath. No sick contacts with similar symptoms. No other alleviating, precipitating or modifying factors (Shivani Baker) - Related Data Home Medications Medication Instructions Recorded Confirmed Levothyroxine Sodium [Levoxyl] 100 mcg PO MOTUWETHFR 04/20/14 12/16/17 clonazePAM [KlonoPIN] 0.25 mg PO BID 04/20/14 12/16/17 cycloSPORINE 0.05% OPHTH SOLN 1 applicator BOTH EYES Q12H 04/20/14 12/16/17 [Restasis 0.05% Ophth Soln] Atorvastatin [Lipitor] 40 mg PO HS 05/22/16 12/16/17 Aspirin [Children's Aspirin] 81 mg PO DAILY 04/21/17 12/16/17 Fluticasone Nasal [place] [Flonase 1 spr EA NOSTRIL DAILY PRN 04/21/17 12/16/17 Nasal [place]] Gabapentin 600 mg PO TID 04/21/17 12/16/17 Levothyroxine Sodium [Levoxyl] 50 mcg PO SA 04/21/17 12/16/17 atenoloL [Tenormin] 25 mg PO BID 04/21/17 12/16/17 Ferrous Sulfate [Feosol] 325 mg PO DAILY 12/16/17 12/16/17 Sertraline HCl [Zoloft] 25 mg PO DAILY 12/16/17 12/16/17 Previous Rx's Medication Instructions Recorded Ondansetron Odt [Zofran Odt] 4 mg PO Q8HR PRN #12 tab 09/04/18 LORazepam [Ativan] 0.5 mg PO DAILY PRN #2 tab 11/26/18 Ciprofloxacin HCl [Cipro] 500 mg PO Q12HR #14 tablet 02/21/23 metroNIDAZOLE [Flagyl] 500 mg PO Q8H #21 tab 02/21/23 Allergies Allergy/AdvReac Type Severity Reaction Status Date / Time amoxicillin trihydrate Allergy Rash/Hives Verified 03/09/23 19:30 [From Augmentin] clopidogrel bisulfate Allergy Swelling Verified 03/09/23 19:30 [From Plavix] lisinopril Allergy Unknown Verified 03/09/23 19:30 losartan Allergy Unknown Verified 03/09/23 19:30 phenobarbital Allergy Rash/Hives Verified 03/09/23 19:30 potassium clavulanate Allergy Rash/Hives Verified 03/09/23 19:30 [From Augmentin] Review of Systems ROS Other: All systems not noted in ROS Statement are negative. <Chandni Oviedo - Last Filed: 03/09/23 20:39> ROS Other: All systems not noted in ROS Statement are negative. <Shivani Baker - Last Filed: 03/10/23 01:44> ROS Statement: Those systems with pertinent positive or pertinent negative responses have been documented in the HPI. Past Medical History Past Medical History: Coronary Artery Disease (CAD), Hypertension, Renal Disease, Thyroid Disorder Additional Past Medical History / Comment(s): TACHYCARDIA, STAGE 3 RENAL FAILURE, degenerative cervical spine. History of Any Multi-Drug Resistant Organisms: None Reported Past Surgical History: Back Surgery, Breast Surgery, Heart Catheterization, Orthopedic Surgery, Tonsillectomy Additional Past Surgical History / Comment(s): D&C, cyst removed from spine Past Anesthesia/Blood Transfusion Reactions: Postoperative Nausea & Vomiting (PONV) Past Psychological History: Anxiety Smoking Status: Never smoker Past Alcohol Use History: Rare Past Drug Use History: None Reported - Past Family History Mother Family Medical History: Cancer Additional Family Medical History / Comment(s): breast cancer, parkinsins, degenerative disc disease, ovary cyst, passed from head injury Father Family Medical History: Coronary Artery Disease (CAD), Hypertension, Myocardial Infarction (CO) Additional Family Medical History / Comment(s): triple bypass Brother(s) Additional Family Medical History / Comment(s): subdural hematoma Son(s) Family Medical History: No Reported History Sister(s) Family Medical History: Hypertension Additional Family Medical History / Comment(s): parathyroid disorder <Chandni Oviedo - Last Filed: 03/09/23 20:39> General Exam Limitations: no limitations <Chandni Oviedo - Last Filed: 03/09/23 20:39> - General Exam Comments Initial Comments: Visual Physical Exam Vital signs reviewed General: Well-appearing, nontoxic, no acute distress. Head: Normocephalic, atraumatic Eyes: PERRLA, EOMI ENT: Airway patent Chest: Nonlabored breathing Skin: No visual rash, mild general pallor Neuro: Alert and oriented 3 Musculoskeletal: No gross abnormalities (Chandni Oviedo) Course Vital Signs 03/09/23 19:26 Temperature 97.6 F Pulse Rate 76 Respiratory 20 Rate Blood Pressure 93/56 O2 Sat by Pulse 98 Oximetry Medical Decision Making - Lab Data Result diagrams: 03/09/23 21:40 03/09/23 21:40 <Shivani Baker - Last Filed: 03/10/23 01:44> - Medical Decision Making Was pt. sent in by a medical professional or institution (, PA, DIESEL TRUCK DRIVER, urgent care, hospital, or fpc...) When possible be specific @ -[No] Did you speak to anyone other than the patient for history (EMS, parent, family, police, friend...)? What history was obtained from this source @ -[No] Did you review nursing and triage notes (agree or disagree)? Why? @ -[I reviewed and agree with nursing and triage notes] Were old charts reviewed (outside hosp., previous admission, EMS record, old EKG, old radiological studies, urgent care reports/EKG's, fpc records)? Report findings @ -[No old charts were reviewed] Differential Diagnosis (chest pain, altered mental status, abdominal pain women, abdominal pain men, vaginal bleeding, weakness, fever, dyspnea, syncope, headache, dizziness, GI bleed, back pain, seizure, CVA, palpatations, mental health, musculoskeletal)? @ -[not applicable] EKG interpreted by me (3pts min.). @ -[As above] X-rays interpreted by me (1pt min.). @ -[None done] CT interpreted by me (1pt min.). @ -[None done] U/S interpreted by me (1pt. min.). @ -[None done] What testing was considered but not performed or refused? (CT, X-rays, U/S, labs)? Why? @ -[None] What meds were considered but not given or refused? Why? @ -[None] Did you discuss the management of the patient with other professionals (professionals i.e. , PA, DIESEL TRUCK DRIVER, lab, RT, psych nurse, social insurance administrator, laborer [employer], teacher, equal opportunity officer, embedded case manager)? Give summary @ -[No] Was smoking cessation discussed for >3mins.? @ -[No] Was critical care preformed (if so, how long)? @ -[No] Were there social determinants of health that impacted care today? How? (Homelessness, low income, unemployed, alcoholism, drug addiction, transportation, low edu. Level, literacy, decrease access to med. care, usp, rehab)? @ -[No] Was there de-escalation of care discussed even if they declined (Discuss DNR or withdrawal of care, Hospice)? DNR status @ -[No] What co-morbidities impacted this encounter? (DM, HTN, Smoking, COPD, CAD, Cancer, CVA, ARF, Chemo, Hep., AIDS, mental health diagnosis, sleep apnea, morbid obesity)? @ -[None] Was patient admitted / discharged? Hospital course, mention meds given and route, prescriptions, significant lab abnormalities, going to OR and other pertinent info. @ -Upon arrival patient is placed in room 4. A thorough history and physical exam was performed. IV was established and laboratory studies are conducted. Patient was given a liter bolus normal saline. White blood cell count is 14.3. Creatinine is up to 2 with a GFR of 24. CT is performed without contrast which demonstrates no acute findings. Viral panel is negative. Patient does provide stool sample which is negative for C. diff. Recommended admission due to acute kidney injury and leukocytosis. Spoke with Celia from [facility] who agreed to accept admission for the patient. I did order Rocephin and Flagyl for the leukocytosis. Patient awaiting a bed on the floor in stable condition Undiagnosed new problem with uncertain prognosis? @ -[No] Drug Therapy requiring intensive monitoring for toxicity (Heparin, Nitro, Insulin, Cardizem)? @ -[No] Were any procedures done? @ -[No] Diagnosis/symptom? @ -[default] Acute, or Chronic, or Acute on Chronic? @ -[default] Uncomplicated (without systemic symptoms) or Complicated (systemic symptoms)? @ -[default] Side effects of treatment? @ -[No] Exacerbation, Progression, or Severe Exacerbation? @ -[No] Poses a threat to life or bodily function? How? (Chest pain, [place], CO, pneumonia, PE, COPD, DKA, ARF, appy, cholecystitis, CVA, Diverticulitis, Homicidal, Suicidal, threat to staff... and all critical care pts) @ -[No] (Shivani Baker) - Lab Data Lab Results 03/09/23 03/09/23 03/09/23 Range/Units 21:40 21:40 21:40 WBC 14.3 H (3.8-10.6) k/uL RBC 4.50 (3.80-5.40) m/uL Hgb 13.7 (11.4-16.0) gm/dL Hct 40.9 (34.0-46.0) % MCV 90.8 (80.0-100.0) fL MCH 30.5 (25.0-35.0) pg MCHC 33.6 (31.0-37.0) g/dL RDW 13.3 (11.5-15.5) % Plt Count 214 (150-450) k/uL MPV 8.2 Neutrophils % 89 % Lymphocytes % 6 % Monocytes % 3 % Eosinophils % 0 % Basophils % 0 % Neutrophils # 12.7 H (1.3-7.7) k/uL Lymphocytes # 0.9 L (1.0-4.8) k/uL Monocytes # 0.5 (0-1.0) k/uL Eosinophils # 0.1 (0-0.7) k/uL Basophils # 0.0 (0-0.2) k/uL PT 9.9 (9.0-12.0) sec INR 0.9 (<1.2) APTT 20.6 L (22.0-30.0) sec Sodium 137 (137-145) mmol/L Potassium 4.1 (3.5-5.1) mmol/L Chloride 102 (98-107) mmol/L Carbon Dioxide 19 L (22-30) mmol/L Anion Gap 16 mmol/L BUN 39 H (7-17) mg/dL Creatinine 2.00 H (0.52-1.04) mg/dL Est GFR (CKD-EPI)AfAm 27 (>60 ml/min/1.73 sqM) Est GFR (CKD-EPI)NonAf 24 (>60 ml/min/1.73 sqM) Glucose 107 H (74-99) mg/dL Plasma Lactic Acid Abner (0.7-2.0) mmol/L Calcium 9.8 (8.4-10.2) mg/dL Total Bilirubin 1.8 H (0.2-1.3) mg/dL AST 31 (14-36) U/L ALT 25 (4-34) U/L Alkaline Phosphatase 83 (38-126) U/L Troponin I (0.000-0.034) ng/mL Total Protein 7.5 (6.3-8.2) g/dL Albumin 4.5 (3.5-5.0) g/dL Urine Color Urine Appearance (Clear) Urine pH (5.0-8.0) Ur Specific [place] (1.001-1.035) Urine Protein (Negative) Urine Glucose (UA) (Negative) Urine Ketones (Negative) Urine Blood (Negative) Urine Nitrite (Negative) Urine Bilirubin (Negative) Urine Urobilinogen (<2.0) mg/dL Ur Leukocyte Esterase (Negative) Urine RBC (0-5) /hpf Urine WBC (0-5) /hpf Ur Squamous Epith Cells (0-4) /hpf Amorphous Sediment (None) /hpf Urine Bacteria (None) /hpf Hyaline Casts (0-2) /lpf Urine Mucus (None) /hpf C. difficile (EIA) Intrp (Negative) Influenza Type A (PCR) (Not Detectd) Influenza Type B (PCR) (Not Detectd) RSV (PCR) (Not Detectd) SARS-CoV-2 (PCR) (Not Detectd) 03/09/23 03/09/23 03/09/23 Range/Units 21:40 21:40 21:40 WBC (3.8-10.6) k/uL RBC (3.80-5.40) m/uL Hgb (11.4-16.0) gm/dL Hct (34.0-46.0) % MCV (80.0-100.0) fL MCH (25.0-35.0) pg MCHC (31.0-37.0) g/dL RDW (11.5-15.5) % Plt Count (150-450) k/uL MPV Neutrophils % % Lymphocytes % % Monocytes % % Eosinophils % % Basophils % % Neutrophils # (1.3-7.7) k/uL Lymphocytes # (1.0-4.8) k/uL Monocytes # (0-1.0) k/uL Eosinophils # (0-0.7) k/uL Basophils # (0-0.2) k/uL PT (9.0-12.0) sec INR (<1.2) APTT (22.0-30.0) sec Sodium (137-145) mmol/L Potassium (3.5-5.1) mmol/L Chloride (98-107) mmol/L Carbon Dioxide (22-30) mmol/L Anion Gap mmol/L BUN (7-17) mg/dL Creatinine (0.52-1.04) mg/dL Est GFR (CKD-EPI)AfAm (>60 ml/min/1.73 sqM) Est GFR (CKD-EPI)NonAf (>60 ml/min/1.73 sqM) Glucose (74-99) mg/dL Plasma Lactic Acid Abner 1.3 (0.7-2.0) mmol/L Calcium (8.4-10.2) mg/dL Total Bilirubin (0.2-1.3) mg/dL AST (14-36) U/L ALT (4-34) U/L Alkaline Phosphatase (38-126) U/L Troponin I <0.012 (0.000-0.034) ng/mL Total Protein (6.3-8.2) g/dL Albumin (3.5-5.0) g/dL Urine Color Urine Appearance (Clear) Urine pH (5.0-8.0) Ur Specific [place] (1.001-1.035) Urine Protein (Negative) Urine Glucose (UA) (Negative) Urine Ketones (Negative) Urine Blood (Negative) Urine Nitrite (Negative) Urine Bilirubin (Negative) Urine Urobilinogen (<2.0) mg/dL Ur Leukocyte Esterase (Negative) Urine RBC (0-5) /hpf Urine WBC (0-5) /hpf Ur Squamous Epith Cells (0-4) /hpf Amorphous Sediment (None) /hpf Urine Bacteria (None) /hpf Hyaline Casts (0-2) /lpf Urine Mucus (None) /hpf C. difficile (EIA) Intrp (Negative) Influenza Type A (PCR) Not Detected (Not Detectd) Influenza Type B (PCR) Not Detected (Not Detectd) RSV (PCR) Not Detected (Not Detectd) SARS-CoV-2 (PCR) Not Detected (Not Detectd) 03/09/23 03/09/23 Range/Units 23:14 23:14 WBC (3.8-10.6) k/uL RBC (3.80-5.40) m/uL Hgb (11.4-16.0) gm/dL Hct (34.0-46.0) % MCV (80.0-100.0) fL MCH (25.0-35.0) pg MCHC (31.0-37.0) g/dL RDW (11.5-15.5) % Plt Count (150-450) k/uL MPV Neutrophils % % Lymphocytes % % Monocytes % % Eosinophils % % Basophils % % Neutrophils # (1.3-7.7) k/uL Lymphocytes # (1.0-4.8) k/uL Monocytes # (0-1.0) k/uL Eosinophils # (0-0.7) k/uL Basophils # (0-0.2) k/uL PT (9.0-12.0) sec INR (<1.2) APTT (22.0-30.0) sec Sodium (137-145) mmol/L Potassium (3.5-5.1) mmol/L Chloride (98-107) mmol/L Carbon Dioxide (22-30) mmol/L Anion Gap mmol/L BUN (7-17) mg/dL Creatinine (0.52-1.04) mg/dL Est GFR (CKD-EPI)AfAm (>60 ml/min/1.73 sqM) Est GFR (CKD-EPI)NonAf (>60 ml/min/1.73 sqM) Glucose (74-99) mg/dL Plasma Lactic Acid Abner (0.7-2.0) mmol/L Calcium (8.4-10.2) mg/dL Total Bilirubin (0.2-1.3) mg/dL AST (14-36) U/L ALT (4-34) U/L Alkaline Phosphatase (38-126) U/L Troponin I (0.000-0.034) ng/mL Total Protein (6.3-8.2) g/dL Albumin (3.5-5.0) g/dL Urine Color Yellow Urine Appearance Cloudy H (Clear) Urine pH 5.0 (5.0-8.0) Ur Specific [place] 1.018 (1.001-1.035) Urine Protein Trace H (Negative) Urine Glucose (UA) Negative (Negative) Urine Ketones Negative (Negative) Urine Blood Negative (Negative) Urine Nitrite Negative (Negative) Urine Bilirubin Negative (Negative) Urine Urobilinogen <2.0 (<2.0) mg/dL Ur Leukocyte Esterase Small H (Negative) Urine RBC 1 (0-5) /hpf Urine WBC 12 H (0-5) /hpf Ur Squamous Epith Cells 5 H (0-4) /hpf Amorphous Sediment Rare H (None) /hpf Urine Bacteria Occasional H (None) /hpf Hyaline Casts 237 H (0-2) /lpf Urine Mucus Rare H (None) /hpf C. difficile (EIA) Intrp Negative (Negative) Influenza Type A (PCR) (Not Detectd) Influenza Type B (PCR) (Not Detectd) RSV (PCR) (Not Detectd) SARS-CoV-2 (PCR) (Not Detectd) Disposition <Chandni Oviedo - Last Filed: 03/09/23 20:39> Is patient prescribed a controlled substance at d/c from ED?: No Time of Disposition: 00:24 Decision to Admit Reason: Admit from EC Decision Date: 03/10/23 Decision Time: 00:24 <Shivani Baker - Last Filed: 03/10/23 01:44> Clinical Impression: Diarrhea, Fever, Leukocytosis, ALO (acute kidney injury) Disposition: ADMITTED IP TO THIS HOSP Condition: Stable
[2023-03-09] MEDS ORDERED: ONDANSETRON 4 MG/2 ML VIAL IVP STA (21:53)
[2023-03-09] MEDS ORDERED: SODIUM CHLORIDE 0.9% 1,000 ML IV ONE ×2 (21:53→22:49)
--- NOTE | 2023-03-09 21:55 | XR ---
EXAMINATION TYPE: XR chest 2V DATE OF EXAM: 03/09/2023 9:22 PM COMPARISON: Chest radiographs from 11/26/2018 TECHNIQUE: XR chest 2V Frontal and lateral views of the chest. CLINICAL INDICATION:Female, 77 years old with history of Weakness; FINDINGS: Lungs/Pleura: There is flattening of the diaphragm with increased lucency of the lungs. No evidence o f pneumothorax, pleural effusion or focal consolidation. Pulmonary vascularity: Unremarkable. Heart/mediastinum: Cardiomediastinal silhouette is unremarkable. Musculoskeletal: No acute osseous pathology. IMPRESSION: 1. No acute cardiopulmonary disease process. 2. COPD changes.
[2023-03-09 22:17] LABS: Basophils % (A) 0 %; Eosinophils # (A) 0.1 k/uL (0-0.7); Eosinophils % (A) 0 %; HCT 40.9 % (34.0-46.0); HGB 13.7 gm/dL (11.4-16.0); Lymphocytes # (A) 0.9 k/uL (1.0-4.8); Lymphocytes % (A) 6 %; MCH 30.5 pg (25.0-35.0); MCHC 33.6 g/dL (31.0-37.0); MCV 90.8 fL (80.0-100.0); Mean Platelet Volume 8.2; Monocytes # (A) 0.5 k/uL (0-1.0); Monocytes % (A) 3 %; Neutrophils # (A) 12.7 k/uL (1.3-7.7); Neutrophils % (A) 89 %; Platelet Count 214 k/uL (150-450); RDW 13.3 % (11.5-15.5); WBC 14.3 k/uL (3.8-10.6)
[2023-03-09 22:28] LABS: Albumin 4.5 g/dL (3.5-5.0); Calcium 9.8 mg/dL (8.4-10.2); Potassium 4.1 mmol/L (3.5-5.1); Total Bilirubin 1.8 mg/dL (0.2-1.3); Total Protein 7.5 g/dL (6.3-8.2)
[2023-03-09 22:40] LABS: INR 0.9 (<1.2); Prothrombin Time 9.9 sec (9.0-12.0)
[2023-03-09 22:44] LABS: Partial Thromboplastin Time 20.6 sec (22.0-30.0)
[2023-03-09 23:29] LABS: Amorphous Sediment,Urine Rare /hpf; Appearance,Urine Cloudy (Clear); Bacteria,Urine Occasional /hpf; Bilirubin,Urine Negative (Negative); Blood,Urine Negative (Negative); Color,Urine Yellow; Glucose,Urine (UA) Negative (Negative); Hyaline Casts,Urine 237 /lpf (0-2); Ketones,Urine Negative (Negative); Leukocyte Esterase,Urine Small (Negative); Mucus,Urine Rare /hpf; Nitrite,Urine Negative (Negative); Protein,Urine Trace (Negative); RBC,Urine 1 /hpf (0-5); Specific Gravity,Urine 1.018 (1.001-1.035); Squamous Epithelial Cell,Urine 5 /hpf (0-4); Urobilinogen,Urine <2.0 mg/dL (<2.0); WBC,Urine 12 /hpf (0-5)
--- NOTE | 2023-03-09 23:35 | CT ---
EXAMINATION TYPE: CT abdomen pelvis wo con CT DLP: 608 mGycm, Automated exposure control for dose reduction was used. DATE OF EXAM: 03/09/2023 11:17 PM COMPARISON: CT abdomen pelvis most recent from 02/21/2023 CLINICAL INDICATION:Female, 77 years old with history of abd pain, kidney failure; WEAKNESS, ABD LINDA, RENAL FAILURE TECHNIQUE: Axial CT of the abdomen and pelvis. Sagittal and coronal reformats were created on a [employer] workstation. Contrast used: None Oral contrast used: without Oral Contrast FINDINGS: LOWER CHEST: Unremarkable ABDOMEN LIVER: Unremarkable GALLBLADDER AND BILE DUCTS: Unremarkable. PANCREAS: Unremarkable. SPLEEN: Unremarkable. ADRENAL GLANDS: Unremarkable. KIDNEYS AND URETERS: No evidence of hydronephrosis or renal calculus. The ureters are unremarkable. PELVIS BLADDER: Nondistended and grossly unremarkable. REPRODUCTIVE: Atrophic appearing uterus. ABDOMEN & PELVIS STOMACH AND BOWEL: No evidence of bowel obstruction. Scattered colonic diverticula present. PERITONEUM/RETROPERITONEUM: No evidence of pneumoperitoneum or free fluid. VASCULATURE: Mild atherosclerotic calcifications are present throughout the abdominal aorta and its b ranches. No evidence of aortic aneurysm. MUSCULOSKELETAL: No acute osseous abnormalities, post fixation changes to the spine hardware intact. Dextroscoliosis apex L3. Mild degeneration changes of the hips. LYMPH NODES: No gross evidence for lymphadenopathy. SOFT TISSUE/ABDOMINAL WALL: Small fat-containing umbilical hernia. IMPRESSION: 1. No evidence of obstructive uropathy or renal calculus. No acute abdominal process. 2. Few scattered colonic diverticula.
[2023-03-10] MEDS ORDERED: cefTRIAXone IN SWFI 1,000 MG/10 ML SYRINGE IVP STA (00:22)
[2023-03-10] MEDS ORDERED: metroNIDAZOLE-NS PMX 500 MG in SALINE 1 100ML.BAG IVPB STA (00:23)
[2023-03-10] MEDS ORDERED: NALOXONE 0.4 MG/ML 1 ML VIAL IV PRN (00:24)
[2023-03-10] MEDS: SODIUM CHLORIDE 0.9% 1,000 ML IV SCH ×4 (01:29→20:09)
[2023-03-10] MEDS ORDERED: Magnesium Replacement Protocol 1 EACH MISC MISCELLANE PRN (11:25)
[2023-03-10] MEDS ORDERED: MAGNESIUM SULFATE-D5W PMX 1 GM in DEXTROSE/WATER 1 100ML.BAG IVPB ONE (12:00)
[2023-03-10 13:14] LABS: African American GFR (CKD) 32 (>60 ml/min/1.73 sqM); Anion Gap 11 mmol/L; Blood Urea Nitrogen 33 mg/dL (7-17); Calcium 8.3 mg/dL (8.4-10.2); Carbon Dioxide 20 mmol/L (22-30); Chloride 109 mmol/L (98-107); Glucose 101 mg/dL (74-99); Non-African American GFR(CKD) 28 (>60 ml/min/1.73 sqM); Potassium 3.7 mmol/L (3.5-5.1); Sodium 140 mmol/L (137-145)
[2023-03-10] MEDS ORDERED: metroNIDAZOLE 500 MG TAB PO SCH (16:00)
[2023-03-10] MEDS ORDERED: ALBUTEROL HFA INHALER INHALATION PRN (16:14)
[2023-03-10] MEDS: FAMOTIDINE 20 MG/2 ML VIAL IV SCH (16:41)
[2023-03-10] MEDS: metroNIDAZOLE-NS PMX 500 MG in SALINE 1 100ML.BAG IVPB SCH ×2 (16:42→23:20)
--- NOTE | 2023-03-10 19:34 | HP ---
HISTORY AND PHYSICAL CHIEF COMPLAINT: Weakness, diarrhea, and fever. HISTORY OF PRESENT ILLNESS: This is a 77-year-old woman with a past medical history of multiple medical problems of CAD, hypertension. Had a recent course of antibiotics, apparently, and the patient is now complaining of significant diarrhea and weakness. The patient came to [facility]. Apparently, there was some blood in the stool as well. The patient had abdomen and pelvis CAT scan after admission, which showed a few scattered colonic diverticula only. Stool for C difficile was negative. The patient also had some acute renal failure. There is no history of any fever, any rigors, chills at this time. PAST MEDICAL HISTORY: Reviewed includes CAD, hypertension. Rest of the history and rest of the chart is also reviewed. HOME MEDICATIONS: Reviewed. Include cyclosporine. Dose and rest of medications reviewed. ALLERGIES: Augmentin. The rest of allergies reviewed. FAMILY HISTORY: History of cancer, Parkinson's. The rest of the history reviewed. SOCIAL HISTORY: No history of smoking. No history of alcohol. REVIEW OF SYSTEMS: Fourteen-point review is negative except as mentioned earlier PHYSICAL EXAMINATION: VITAL SIGNS: Pulse 77, blood pressure 106/69, respirations 16. HEENT: Conjunctivae are normal. Oral mucosa dry. NECK: There is no JVD. CARDIOVASCULAR: S1 and S2. RESPIRATION: A few scattered rhonchi. ABDOMEN: Soft. Mildly diffuse discomfort. No guarding. No rigidity. No mass palpable. LEGS: No edema. No cyanosis. NERVOUS SYSTEM: No focal deficit. SKIN: No rash. JOINTS: No active deforming arthropathy. LABORATORY DATA: Reviewed. WBC 14.3. ASSESSMENT: 1. Significant diarrhea, possible acute gastroenteritis versus antibiotic induced diarrhea. 2. Acute renal failure, secondary from dehydration; prerenal acute renal failure; acute tubular necrosis. 3. Hypertension. 4. Coronary artery disease. 5. Multiple medical issues. RECOMMENDATIONS AND DISCUSSION: This is a 77-year-old woman, who presented with multiple complex medical issues. We will monitor the patient closely. Continue the current medications. I would recommend Flagyl and also Infectious Disease evaluation. Nephrology evaluation. Continue the IV fluids. Resume home medications once they are confirmed. Prognosis guarded because of multiple complex medical issues. Further recommendations to follow. MMODL / IJN: [id number] /
[2023-03-10] MEDS: IPRATROPIUM BROMIDE 0.06% NASAL SPRAY (15 ML) EA NOSTRIL SCH (20:10)
[2023-03-10] MEDS: HEPARIN SODIUM,PORCINE/PF 5,000 UNIT/0.5 ML SYRINGE SQ SCH (20:11)
[2023-03-10] MEDS: atenoloL 50 MG TAB PO SCH (20:11)
[2023-03-10] MEDS: ATORVASTATIN 40 MG TAB PO SCH (20:11)
[2023-03-10] MEDS: cycloSPORINE 0.05% OPHTH 0.4 ML DROPERETTE BOTH EYES SCH (20:12)
[2023-03-10] MEDS ORDERED: FAMOTIDINE 20 MG/2 ML VIAL IV SCH (21:00)
--- NOTE | 2023-03-10 21:55 | P.CONS ---
History of Present Illness - Reason for Consult Consult date: 03/10/23 Abdominal pain and diarrhea Requesting physician: Silvio Coppola - Chief Complaint Diarrhea x few days - History of Present Illness Patient is a 77-year-old female with a past medical history significant for coronary disease and hypertension hypothyroidism renal disease patient was recently evaluated in the ER on 02/21/2023 apparently at that point patient was complaining of diarrhea abdominal cramping and did have blood in the stool patient did have a CT of abdominal pelvis completed on 02/21/2023 Long segment colitis from the distal transverse colon through the rectum differential includes infectious or inflammatory theology skin etiology much less likely the patient was advised admission to the hospital patient refused subsequently was discharged home on oral Cipro and Flagyl patient mention she did have resolution of the bleeding per rectum however never have normalization of her bowel movements she is complaining of some soft frequent bowel movements patient did have some chills denies having any fever did have some crampy lower abdominal pain 3-4 pain no radiation some nausea but no vomiting no chest pain shortness of breath or cough with the symptoms the patient presented back to the hospital on presentation to hospital patient was afebrile did have vital of 14.3 with a left shift did have elevated BUN/creatinine level exams are normal urine was positive stool for C. difficile came back negative influenza RSV and COVID testing was negative patient did have a CT of abdominal pelvis no evidence of obstructive uropathy or renal calculi few scattered colonic diverticuli patient was admitted to hospital infectious was consulted for further management of antibiotic therapy patient did received dose of Rocephin in the ER and Flagyl, patient did have a penicillin allergy describing it to be more of a vaginal yeast infection no history of any rash or anaphylaxis Review of Systems Positive point and negatives has been mentioned in the HPI, complete review of systems was performed and all other systems are negative Past Medical History Past Medical History: Coronary Artery Disease (CAD), Hypertension, Renal Disease, Thyroid Disorder Additional Past Medical History / Comment(s): TACHYCARDIA, STAGE 3 RENAL FAILURE, degenerative cervical spine. History of Any Multi-Drug Resistant Organisms: None Reported Past Surgical History: Back Surgery, Breast Surgery, Heart Catheterization, Orthopedic Surgery, Tonsillectomy Additional Past Surgical History / Comment(s): D&C, cyst removed from spine Past Anesthesia/Blood Transfusion Reactions: Postoperative Nausea & Vomiting (PONV) Past Psychological History: Anxiety Smoking Status: Never smoker Past Alcohol Use History: Rare Past Drug Use History: None Reported - Past Family History Mother Family Medical History: Cancer Additional Family Medical History / Comment(s): breast cancer, parkinsins, degenerative disc disease, ovary cyst, passed from head injury Father Family Medical History: Coronary Artery Disease (CAD), Hypertension, Myocardial Infarction ([place]) Additional Family Medical History / Comment(s): triple bypass Brother(s) Additional Family Medical History / Comment(s): subdural hematoma Son(s) Family Medical History: No Reported History Sister(s) Family Medical History: Hypertension Additional Family Medical History / Comment(s): parathyroid disorder Medications and Allergies Home Medications Medication Instructions Recorded Confirmed Type Levothyroxine Sodium [Levoxyl] 100 mcg PO DAILY 04/20/14 03/10/23 History cycloSPORINE 0.05% OPHTH SOLN 1 applicator BOTH EYES BID 04/20/14 03/10/23 History [Restasis] Atorvastatin [Lipitor] 40 mg PO HS 05/22/16 03/10/23 History atenoloL [Tenormin] 50 mg PO BID 04/21/17 03/10/23 History Albuterol Sulfate [Albuterol 2 puff PO RT-Q6H PRN 03/10/23 03/10/23 History Sulfate Hfa] DULoxetine HCL [Cymbalta] 30 mg PO DAILY 03/10/23 03/10/23 History Famotidine [Pepcid] 40 mg PO BID 03/10/23 03/10/23 History Ipratropium [place] 0.06%Nasal 2 spray EA NOSTRIL BID 03/10/23 03/10/23 History [Atrovent Nasal 0.06%] Triamterene/Hydrochlorothiazid 0.5 tab PO DAILY 03/10/23 03/10/23 History [Triamterene-Hctz 37.5-25 mg Tb] Cholestyramine (with Sugar) 4 gm PO QID #20 packet 03/15/23 Rx [Questran Packet] Loperamide [Imodium] 2 mg PO QID PRN cap 03/15/23 Rx guaiFENesin SYRUP 100MG/5ML 200 mg PO Q6HR PRN #1 ml 03/15/23 Rx [Robitussin] Allergies Allergy/AdvReac Type Severity Reaction Status Date / Time amoxicillin trihydrate Allergy Rash/Hives Verified 03/10/23 11:10 [From Augmentin] clopidogrel bisulfate Allergy Swelling Verified 03/10/23 11:10 [From Plavix] lisinopril Allergy Unknown Verified 03/10/23 11:10 losartan Allergy Unknown Verified 03/10/23 11:10 phenobarbital Allergy Rash/Hives Verified 03/10/23 11:10 potassium clavulanate Allergy Rash/Hives Verified 03/10/23 11:10 [From Augmentin] Physical Exam Vitals: Vital Signs Temp Pulse Pulse Resp BP BP Pulse Ox 03/10/23 15:00 98.0 F 77 16 106/65 97 03/10/23 08:45 18 03/10/23 08:00 98.2 F 71 16 118/67 96 03/10/23 07:20 78 16 124/54 99 03/10/23 03:00 75 13 117/54 95 03/09/23 23:00 16 124/52 97 Intake and Output 03/10/23 03/10/23 03/10/23 06:59 14:59 22:59 Intake Total 240 118 Balance 240 118 Intake: Oral 240 118 Other: Voiding Method Toilet Toilet # Voids 1 # Bowel Movements 2 Weight 77.111 kg GENERAL DESCRIPTION: Elderly female lying in bed, no distress. No tachypnea or accessory muscle of respiration use. HEENT: Shows Pallor , no scleral icterus. Oral mucous membrane is dry. NECK: Trachea central, no thyromegaly. LUNGS: Unlabored breathing. Clear to auscultation anteriorly. HEART: S1, S2, regular rate and rhythm. No loud murmur ABDOMEN: Soft, no tenderness , guarding or rigidity, no organomegaly EXTREMITIES: No edema of feet. SKIN: No rash, no masses palpable. NEUROLOGICAL: The patient is awake, alert, oriented x3, mood and affect normal. Results CBC & Chem 7: 03/13/23 05:41 03/13/23 05:41 Labs: Abnormal Lab Results - Last 24 Hours (Table) 03/09/23 03/09/23 03/09/23 Range/Units 21:40 21:40 21:40 WBC 14.3 H (3.8-10.6) k/uL Neutrophils # 12.7 H (1.3-7.7) k/uL Lymphocytes # 0.9 L (1.0-4.8) k/uL APTT 20.6 L (22.0-30.0) sec Chloride (98-107) mmol/L Carbon Dioxide 19 L (22-30) mmol/L BUN 39 H (7-17) mg/dL Creatinine 2.00 H (0.52-1.04) mg/dL Glucose 107 H (74-99) mg/dL Calcium (8.4-10.2) mg/dL Total Bilirubin 1.8 H (0.2-1.3) mg/dL Urine Appearance (Clear) Urine Protein (Negative) Ur Leukocyte Esterase (Negative) Urine WBC (0-5) /hpf Ur Squamous Epith Cells (0-4) /hpf Amorphous Sediment (None) /hpf Urine Bacteria (None) /hpf Hyaline Casts (0-2) /lpf Urine Mucus (None) /hpf 03/09/23 03/10/23 Range/Units 23:14 07:58 WBC (3.8-10.6) k/uL Neutrophils # (1.3-7.7) k/uL Lymphocytes # (1.0-4.8) k/uL APTT (22.0-30.0) sec Chloride 109 H (98-107) mmol/L Carbon Dioxide 20 L (22-30) mmol/L BUN 33 H (7-17) mg/dL Creatinine 1.75 H (0.52-1.04) mg/dL Glucose 101 H (74-99) mg/dL Calcium 8.3 L (8.4-10.2) mg/dL Total Bilirubin (0.2-1.3) mg/dL Urine Appearance Cloudy H (Clear) Urine Protein Trace H (Negative) Ur Leukocyte Esterase Small H (Negative) Urine WBC 12 H (0-5) /hpf Ur Squamous Epith Cells 5 H (0-4) /hpf Amorphous Sediment Rare H (None) /hpf Urine Bacteria Occasional H (None) /hpf Hyaline Casts 237 H (0-2) /lpf Urine Mucus Rare H (None) /hpf Assessment and Plan (1) Diarrhea Status: Acute Code(s): R19.7 - DIARRHEA, UNSPECIFIED SNOMED Code(s): 71443796 (2) Leukocytosis Status: Acute Code(s): D72.829 - ELEVATED WHITE BLOOD CELL COUNT, UNSPECIFIED SNOMED Code(s): 086510822 Plan: 1patient presented to hospital with diarrhea in this patient with a recent presentation to the hospital with similar symptoms on 02/21/2023 at that point the patient did have CT abdominal pelvis which shows a long segment of colitis involving from transverse to the descending colon with concern for possible infectious versus noninfectious etiology versus ischemia patient did have some improvement in her symptoms but not complete resolution however CT this admission did not show any evidence of colitis and stool for C. difficile is negative 2-patient with a history of amoxicillin allergy with vaginal yeast infection not a true allergy 3-we will obtain a stool culture 4-patient will be started on Rocephin 2 g daily and Flagyl 500 every 8 5-patient may benefit from colonoscopy and biopsy We will follow on clinical condition and cultures to further adjust medication if needed Thank you for this consultation we will follow the patient along with you Time with Patient: Greater than 30
[2023-03-11] MEDS: LEVOTHYROXINE 100 MCG TAB PO SCH (08:32)
[2023-03-11] MEDS: metroNIDAZOLE-NS PMX 500 MG in SALINE 1 100ML.BAG IVPB SCH ×3 (08:32→23:04)
[2023-03-11] MEDS: atenoloL 50 MG TAB PO SCH ×2 (08:32→20:16)
[2023-03-11] MEDS: cycloSPORINE 0.05% OPHTH 0.4 ML DROPERETTE BOTH EYES SCH ×2 (08:32→20:17)
[2023-03-11] MEDS: DULoxetine HCL 30 MG CAPSULE.DR PO SCH (08:33)
[2023-03-11] MEDS: IPRATROPIUM BROMIDE 0.06% NASAL SPRAY (15 ML) EA NOSTRIL SCH ×2 (08:33→20:17)
[2023-03-11] MEDS: HEPARIN SODIUM,PORCINE/PF 5,000 UNIT/0.5 ML SYRINGE SQ SCH ×2 (08:33→20:16)
[2023-03-11] MEDS: FAMOTIDINE 20 MG/2 ML VIAL IV SCH (08:33)
[2023-03-11] MEDS ORDERED: TRIAMTERENE-HCTZ 37.5-25MG 1 EACH TAB PO SCH (09:00)
[2023-03-11 10:38] LABS: African American GFR (CKD) 42.2 (60.0-200.0); Albumin 3.6 g/dL (3.8-4.9); Albumin/Globulin Ratio 1.64 (1.60-3.17); Anion Gap 11.9 mmol/L (10.00-18.00); BUN/Creat Ratio 16.93 Ratio (12.00-20.00); Blood Urea Nitrogen 23.7 mg/dL (9.0-27.0); Calcium 8.9 mg/dL (8.7-10.3); Carbon Dioxide 18.1 mmol/L (20.0-27.5); Globulin 2.2 g/dL (1.6-3.3); Non-African American GFR(CKD) 36.4 (60.0-200.0); Total Bilirubin 0.2 mg/dL (0.30-1.20); Total Protein 5.8 g/dL (6.2-8.2)
[2023-03-11] MEDS: SODIUM CHLORIDE 0.9% 1,000 ML IV SCH (11:25)
--- NOTE | 2023-03-11 11:26 | P.NPCON ---
History of Present Illness - Reason for Consult acute renal failure - History of Present Illness Reason for consultation: Acute kidney injury History of present illness: Patient is a 77-year-old female seen in renal consultation for acute kidney injury. Patient's creatinine in June 2021 was 0.88. It was 1.17 dated 02/21/2023 and patient states that it was 1.35 on 02/26/2023. 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 Creatinine this admission was 2 and is down to 1.4 today. Patient came to the hospital due to generalized weakness and diarrhea. Patient states diarrhea has been going on for quite some time and she was given a course of antibiotics which she has completed. She started to feel better but the diarrhea came back. Today she hasn't had any episodes of diarrhea. She is tolerating oral intake. No vomiting. No history of diabetes. Denies use of nonsteroidals. Denies family history of renal disease. CAT scan showed no evidence of hydronephrosis. She did receive 2 L of fluid bolus on admission and is currently receiving normal saline at 75 mL an hour. She was on triamterene and hydrochlorothiazide outpatient which is now discontinued. She denies edema. She also noticed blood with bowel movement initially when the diarrhea started but now resolved. She denies any sick family contacts or recent travel. Vital signs are stable. General: No acute distress. HEENT: Head exam is unremarkable. LUNGS: No audible rhonchi or wheezes. HEART: Rate and Rhythm are regular. ABDOMEN: Soft, nontender. EXTREMITITES: No edema. Past Medical History Past Medical History: Coronary Artery Disease (CAD), Hypertension, Renal Disease, Thyroid Disorder Additional Past Medical History / Comment(s): TACHYCARDIA, STAGE 3 RENAL FAILURE, degenerative cervical spine. History of Any Multi-Drug Resistant Organisms: None Reported Past Surgical History: Back Surgery, Breast Surgery, Heart Catheterization, Orthopedic Surgery, Tonsillectomy Additional Past Surgical History / Comment(s): D&C, cyst removed from spine Past Anesthesia/Blood Transfusion Reactions: Postoperative Nausea & Vomiting (PONV) Past Psychological History: Anxiety Smoking Status: Never smoker Past Alcohol Use History: Rare Past Drug Use History: None Reported - Past Family History Mother Family Medical History: Cancer Additional Family Medical History / Comment(s): breast cancer, parkinsins, de generative disc disease, ovary cyst, passed from head injury Father Family Medical History: Coronary Artery Disease (CAD), Hypertension, Myocardial Infarction ([place]) Additional Family Medical History / Comment(s): triple bypass Brother(s) Additional Family Medical History / Comment(s): subdural hematoma Son(s) Family Medical History: No Reported History Sister(s) Family Medical History: Hypertension Additional Family Medical History / Comment(s): parathyroid disorder Medications and Allergies Home Medications Medication Instructions Recorded Confirmed Type Levothyroxine Sodium [Levoxyl] 100 mcg PO DAILY 04/20/14 03/10/23 History cycloSPORINE 0.05% OPHTH SOLN 1 applicator BOTH EYES BID 04/20/14 03/10/23 History [Restasis 0.05% Ophth Soln] Atorvastatin [Lipitor] 40 mg PO HS 05/22/16 03/10/23 History atenoloL [Tenormin] 50 mg PO BID 04/21/17 03/10/23 History Albuterol Sulfate [Albuterol 2 puff PO RT-Q6H PRN 03/10/23 03/10/23 History Sulfate Hfa] DULoxetine HCL [Cymbalta] 30 mg PO DAILY 03/10/23 03/10/23 History Famotidine [Pepcid] 40 mg PO BID 03/10/23 03/10/23 History Ipratropium [place] 0.06%Nasal 2 spray EA NOSTRIL BID 03/10/23 03/10/23 History [Atrovent Nasal 0.06%] Triamterene/Hydrochlorothiazid 0.5 tab PO DAILY 03/10/23 03/10/23 History [Triamterene-Hctz 37.5-25 mg Tb] Allergies Allergy/AdvReac Type Severity Reaction Status Date / Time amoxicillin trihydrate Allergy Rash/Hives Verified 03/10/23 11:10 [From Augmentin] clopidogrel bisulfate Allergy Swelling Verified 03/10/23 11:10 [From Plavix] lisinopril Allergy Unknown Verified 03/10/23 11:10 losartan Allergy Unknown Verified 03/10/23 11:10 phenobarbital Allergy Rash/Hives Verified 03/10/23 11:10 potassium clavulanate Allergy Rash/Hives Verified 03/10/23 11:10 [From Augmentin] Physical Exam Vitals: Vital Signs Temp Pulse Resp BP BP Pulse Ox 03/11/23 07:10 97.5 F L 63 16 135/70 99 03/11/23 00:31 97.6 F 71 16 133/75 98 03/10/23 19:06 97.7 F 77 18 123/67 96 03/10/23 15:00 98.0 F 77 16 106/65 97 Intake and Output 03/10/23 03/11/23 03/11/23 22:59 06:59 14:59 Intake Total 118 Balance 118 Intake: Oral 118 Other: Voiding Method Toilet # Voids 1 # Bowel Movements 2 Results - Lab Results Most recent lab results Calcium 8.9 mg/dL (8.7-10.3) 03/11/23 05: Magnesium 2.0 mg/dL (1.5-2.4) 03/11/23 05:21 03/09/23 21:40 03/11/23 05:21 Assessment and Plan Plan: Assessment: 1. Acute kidney injury mostly prerenal secondary to hypovolemia and further worsened with the use of Lasix. Creatinine 2 on admission and is down to 1.4 today. UA with trace protein. No hydronephrosis noted on CAT scan. 2. Chronic kidney disease. 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 Patient states her baseline creatinine usually runs 1.2-1.3. 3. Hypertension with chronic kidney disease. Currently controlled. 4. Diarrhea. Possibly viral. C. diff negative. Stool culture pending. 5. Metabolic acidosis secondary to acute kidney injury, IV fluids and GI losse s. Plan: Maintain IV fluids. Continue to hold diuretics. Add oral bicarb. Avoid nephrotoxins. Continue to monitor renal function and urine output. Thank you for the consultation. I will continue to follow the patient with you during her hospital stay.
--- NOTE | 2023-03-11 15:18 | P.PN ---
Subjective Progress Note Date: 03/11/23 Principal diagnosis: Diarrhea/colitis Patient is a 77-year-old female with a past medical history significant for coronary disease and hypertension hypothyroidism renal disease patient was recently evaluated in the ER on 02/21/2023 apparently at that point patient was complaining of diarrhea abdominal cramping and did have blood in the stool patient did have a CT of abdominal pelvis completed on 02/21/2023 Long segment colitis from the distal transverse colon, treated with oral Cipro and Flagyl presenting back to the hospital with persistent diarrhea but resolution of her bleeding per rectum repeat CT did not show any evidence of colitis On today's evaluation that is 03/11/2023, the patient denies having any fever or any chills, the patient complaining of frequent small hard stool no blood in the stool some nausea but no vomiting no chest pain shortness of breath or cough Objective - Vital Signs Vital signs: Vital Signs Temp 97.7 F 03/11/23 15:00 Pulse 67 03/11/23 15:00 Resp 16 03/11/23 15:00 BP 116/65 03/11/23 15:00 Pulse Ox 97 03/11/23 15:00 FiO2 Intake & Output 03/10/23 03/11/23 03/11/23 18:59 06:59 18:59 Intake Total 358 236 Balance 358 236 Weight 77.111 kg Intake: Oral 358 236 Other: Voiding Method Toilet Toilet Toilet # Voids 4 1 5 # Bowel Movements 2 - Exam GENERAL DESCRIPTION: An elderly female lying in bed in no distress RESPIRATORY SYSTEM: Unlabored breathing , decreased breath sounds at bases HEART: S1 S2 regular rate and rhythm , ABDOMEN: Soft , no tenderness EXTREMITIES: No edema feet - Labs CBC & Chem 7: 03/09/23 21:40 03/11/23 05:21 Labs: Abnormal Lab Results - Last 24 Hours (Table) 03/11/23 Range/Units 05: Chloride 114 H (96-109) mmol/L Carbon Dioxide 18.1 L (20.0-27.5) mmol/L Est GFR (CKD-EPI)AfAm 42.2 L (60.0-200.0) Est GFR (CKD-EPI)NonAf 36.4 L (60.0-200.0) Total Bilirubin 0.20 L (0.30-1.20) mg/dL Total Protein 5.8 L (6.2-8.2) g/dL Albumin 3.6 L (3.8-4.9) g/dL Microbiology - Last 24 Hours (Table) 03/10/23 01:00 Blood Culture - Preliminary Blood 03/10/23 01:15 Blood Culture - Preliminary Blood 03/10/23 15:00 Urine Culture - Preliminary Urine,Voided 03/10/23 14:10 Stool Culture - Preliminary Stool Assessment and Plan (1) Diarrhea Current Visit: Yes Status: Acute Code(s): R19.7 - DIARRHEA, UNSPECIFIED SNOMED Code(s): 26685071 (2) Leukocytosis Current Visit: Yes Status: Acute Code(s): D72.829 - ELEVATED WHITE BLOOD CELL COUNT, UNSPECIFIED SNOMED Code(s): 031926739 Plan: 1patient presented to hospital with diarrhea in this patient with a recent presentation to the hospital with similar symptoms on 02/21/2023 at that point the patient did have CT abdominal pelvis which shows a long segment of colitis involving from transverse to the descending colon with concern for possible infectious versus noninfectious etiology versus ischemia patient did have some improvement in her symptoms but not complete resolution however CT this admission did not show any evidence of colitis and stool for C. difficile is negative 2-patient with a history of amoxicillin allergy with vaginal yeast infection not a true allergy 3- stool culture are currently pending 4-patient to continue with Rocephin 2 g daily and Flagyl 500 every 8 and monitor clinical course closely Time with Patient: Less than 30
[2023-03-11] MEDS: SODIUM BICARBONATE TAB 650 MG TAB PO SCH ×2 (16:00→20:16)
[2023-03-11 16:37] LABS: Basophils % (A) 0 %; Eosinophils # (A) 0.2 k/uL (0-0.7); Eosinophils % (A) 4 %; HCT 33.6 % (34.0-46.0); HGB 10.8 gm/dL (11.4-16.0); Lymphocytes # (A) 1.2 k/uL (1.0-4.8); Lymphocytes % (A) 24 %; MCH 30.2 pg (25.0-35.0); MCHC 32.2 g/dL (31.0-37.0); MCV 93.8 fL (80.0-100.0); Mean Platelet Volume 8.8; Monocytes # (A) 0.3 k/uL (0-1.0); Monocytes % (A) 6 %; Neutrophils # (A) 3.1 k/uL (1.3-7.7); Neutrophils % (A) 62 %; Platelet Count 162 k/uL (150-450); RBC 3.58 m/uL (3.80-5.40); RDW 13.5 % (11.5-15.5)
[2023-03-11] MEDS: ATORVASTATIN 40 MG TAB PO SCH (20:16)
--- NOTE | 2023-03-12 02:39 | PN ---
PROGRESS NOTE DATE OF SERVICE: 03/11/2023 SUBJECTIVE: This is a 77-year-old woman who was admitted with significant diarrhea, is improving significantly, C. difficile is negative. No chest pain or palpitation. OBJECTIVE: VITAL SIGNS: Pulse is 67, blood pressure n respirations 16. CHEST: Clear to auscultation. CARDIOVASCULAR: S1, S2. ABDOMEN: Soft. NERVOUS SYSTEM: No focal deficits. LABORATORY DATA: Labs are reviewed. ASSESSMENT: 1. Significant diarrhea possibly acute gastroenteritis versus antibiotic induced diarrhea. 2. Acute renal failure possibly from dehydration; prerenal acute tubular necrosis, improving. 3. Hypertension. 4. History of coronary artery disease. 5. Multiple medical issues. RECOMMENDATIONS: Recommend to continue treatment. Repeat labs. Closely follow with Infectious Disease and Nephrology. Prognosis is guarded and further recommendations to follow. MMODL / IJN: [id number] / MTDD
[2023-03-12] MEDS: SODIUM CHLORIDE 0.9% 1,000 ML IV SCH ×2 (04:00→18:36)
[2023-03-12] MEDS: LEVOTHYROXINE 100 MCG TAB PO SCH (08:46)
[2023-03-12] MEDS: FAMOTIDINE 20 MG/2 ML VIAL IV SCH (08:46)
[2023-03-12] MEDS: atenoloL 50 MG TAB PO SCH ×2 (08:46→20:51)
[2023-03-12] MEDS: cycloSPORINE 0.05% OPHTH 0.4 ML DROPERETTE BOTH EYES SCH ×2 (08:46→20:51)
[2023-03-12] MEDS: SODIUM BICARBONATE TAB 650 MG TAB PO SCH ×2 (08:46→20:51)
[2023-03-12] MEDS: metroNIDAZOLE-NS PMX 500 MG in SALINE 1 100ML.BAG IVPB SCH ×3 (08:47→23:47)
[2023-03-12] MEDS: HEPARIN SODIUM,PORCINE/PF 5,000 UNIT/0.5 ML SYRINGE SQ SCH ×2 (08:47→20:51)
[2023-03-12] MEDS: DULoxetine HCL 30 MG CAPSULE.DR PO SCH (08:50)
[2023-03-12 09:15] LABS: African American GFR (CKD) 50.8 (60.0-200.0); Anion Gap 8.8 mmol/L (10.00-18.00); BUN/Creat Ratio 15.83 Ratio (12.00-20.00); Calcium 8.8 mg/dL (8.7-10.3); Carbon Dioxide 21.2 mmol/L (20.0-27.5); Non-African American GFR(CKD) 43.9 (60.0-200.0); Potassium 4.1 mmol/L (3.5-5.5)
[2023-03-12 10:45] LABS: Basophils # (A) 0.02 X 10*3/uL (0.00-0.10); Basophils % (A) 0.4 %; Eosinophils # (A) 0.21 X 10*3/uL (0.04-0.35); Eosinophils % (A) 3.8 %; HCT 33.8 % (37.2-46.3); HGB 10.4 g/dL (12.0-15.0); Immature Grans, Automated 0.2 %; Lymphocytes # (A) 1.08 X 10*3/uL (0.90-5.00); Lymphocytes % (A) 19.7 %; MCH 29.3 pg (27.0-32.0); MCHC 30.8 g/dL (32.0-37.0); MCV 95.2 fL (80.0-97.0); Mean Platelet Volume 11.7 fL (9.5-12.2); Monocytes % (A) 9.1 %; NRBC Per 100 WBC 0 /100 WBCS (0.0-0.0); Neutrophils # (A) 3.66 X 10*3/uL (1.80-7.70); Neutrophils % (A) 66.8 %; Platelet Count 177 X 10*3/uL (140-440); RBC 3.55 X 10*6/uL (4.10-5.20); RDW 14.1 % (11.5-14.5); WBC 5.48 X 10*3/uL (4.50-10.00)
--- NOTE | 2023-03-12 11:36 | XR ---
EXAMINATION TYPE: XR chest 1V portable DATE OF EXAM: 03/12/2023 COMPARISON: 03/09/2023 HISTORY: Shortness of breath TECHNIQUE: Frontal and lateral views of the chest are obtained. FINDINGS: Scattered senescent parenchymal changes noted. Hyperinflation compatible with COPD. No evidence for infiltrate. No evidence for atelectasis. Heart size is stable. Mediastinal structures are stable and grossly unremarkable. No evidence for hilar prominence. Degenerative changes dorsal spine. IMPRESSION: 1. No evidence for acute pulmonary disease.
--- NOTE | 2023-03-12 13:00 | P.PN ---
Subjective Patient is seen for follow-up for acute kidney injury. Maintained on IV fluids with significant improvement in renal function. Serum creatinine at 1.2 from 2.0 on initial admission. 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 - Labs CBC & Chem 7: 03/12/23 05:21 03/12/23 05:21 Labs: Abnormal Lab Results - Last 24 Hours (Table) 03/11/23 03/12/23 03/12/23 Range/Units 15:25 05:21 05:21 RBC 3.58 L 3.55 L (3.80-5.40) m/uL Hgb 10.8 L 10.4 L (11.4-16.0) gm/dL Hct 33.6 L 33.8 L (34.0-46.0) % MCHC 30.8 L (32.0-37.0) g/dL Chloride 113 H (96-109) mmol/L Anion Gap 8.80 L (10.00-18.00) mmol/L Est GFR (CKD-EPI)AfAm 50.8 L (60.0-200.0) Est GFR (CKD-EPI)NonAf 43.9 L (60.0-200.0) Microbiology - Last 24 Hours (Table) 03/10/23 15:00 Urine Culture - Final Urine,Voided 03/10/23 01:00 Blood Culture - Preliminary Blood 03/10/23 01:15 Blood Culture - Preliminary Blood Assessment and Plan Assessment: 1. Acute kidney injury mostly prerenal secondary to hypovolemia and further worsened with the use of Lasix. Creatinine 2 on admission and is down to 1.2 today. UA with trace protein. No hydronephrosis noted on CAT scan. 2. Chronic kidney disease, stage II per patient. Patient was seen by a nep hrologist at [place] few years ago but has not followed up. Patient states her baseline creatinine usually runs 1.2-1.3. 3. Hypertension with chronic kidney disease. Currently controlled. 4. Diarrhea. Possibly viral. C. diff negative. Stool culture pending. 5. Metabolic acidosis secondary to acute kidney injury, IV fluids and GI losses. Plan: Continue IV fluids for now Repeat labs in a.m. Continue oral sodium bicarb
[2023-03-12] MEDS: guaiFENesin SYRUP 100MG/5ML 200 MG/10 ML CUP PO PRN (17:22)
[2023-03-12] MEDS: ONDANSETRON 4 MG/2 ML VIAL IVP PRN (17:41)
[2023-03-12] MEDS: CHOLESTYRAMINE (WITH SUGAR) 4 GM PACKET PO SCH (18:34)
[2023-03-12] MEDS: IPRATROPIUM BROMIDE 0.06% NASAL SPRAY (15 ML) EA NOSTRIL SCH ×2 (19:43→20:52)
[2023-03-12] MEDS: ATORVASTATIN 40 MG TAB PO SCH (20:51)
--- NOTE | 2023-03-13 06:13 | PN ---
PROGRESS NOTE DATE OF SERVICE: 03/12/2023 SUBJECTIVE: This is a 77-year-old woman, who was admitted with diarrhea. She is supposed to have antibiotic associated diarrhea. The C difficile is negative. No chest pain. No palpitation. OBJECTIVE: VITAL SIGNS: Pulse is 66, blood pressure 154/78, respirations 17. CHEST: Clear to auscultation. CARDIOVASCULAR: S1, S2 muffled. ABDOMEN: Soft, nontender. LABORATORY DATA: Reviewed. Cultures are negative. ASSESSMENT: 1. Significant diarrhea possibly acute gastroenteritis versus antibiotic-induced diarrhea. 2. Acute renal failure possibly from dehydration, prerenal acute tubular necrosis, improving. 3. Hypertension. 4. History of coronary artery disease. 5. Multiple medical issues. RECOMMENDATIONS: Recommend to continue current medications, continue symptomatic treatment. Otherwise, at this time, I recommend repeat labs. Add Questran to the current regimen. Closely monitor with ID. Further recommendations to follow. MMODL / IJN: [id number] /
[2023-03-13] MEDS: SODIUM CHLORIDE 0.9% 1,000 ML IV SCH ×2 (06:45→21:34)
--- NOTE | 2023-03-13 07:58 | P.PN ---
Subjective Progress Note Date: 03/12/23 Principal diagnosis: Diarrhea/colitis Patient is a 77-year-old female with a past medical history significant for coronary disease and hypertension hypothyroidism renal disease patient was recently evaluated in the ER on 02/21/2023 apparently at that point patient was complaining of diarrhea abdominal cramping and did have blood in the stool patient did have a CT of abdominal pelvis completed on 02/21/2023 Long segment colitis from the distal transverse colon, treated with oral Cipro and Flagyl presenting back to the hospital with persistent diarrhea but resolution of her bleeding per rectum repeat CT did not show any evidence of colitis On today's evaluation that is 03/12/2023, the patient is afebrile, the patient is complaining of frequent small stool , no runny diarrhea , no blood in the stool some nausea but no vomiting no chest pain shortness of breath or cough Objective - Vital Signs Vital signs: Vital Signs Temp 97.8 F 03/12/23 07:00 Pulse 66 03/12/23 07:00 Resp 17 03/12/23 07:00 BP 154/78 03/12/23 07:00 Pulse Ox 96 03/12/23 08:27 FiO2 21 03/12/23 08:27 Intake & Output 03/11/23 03/12/23 03/12/23 18:59 06:59 18:59 Intake Total 354 Balance 354 Intake: Oral 354 Other: Voiding Method Toilet Toilet # Voids 5 2 1 - Exam GENERAL DESCRIPTION: An elderly female lying in bed in no distress RESPIRATORY SYSTEM: Unlabored breathing , decreased breath sounds at bases HEART: S1 S2 regular rate and rhythm , ABDOMEN: Soft , no tenderness EXTREMITIES: No edema feet - Labs CBC & Chem 7: 03/12/23 05:21 03/12/23 05:21 Labs: Abnormal Lab Results - Last 24 Hours (Table) 03/11/23 03/12/23 03/12/23 Range/Units 15:25 05:21 05:21 RBC 3.58 L 3.55 L (3.80-5.40) m/uL Hgb 10.8 L 10.4 L (11.4-16.0) gm/dL Hct 33.6 L 33.8 L (34.0-46.0) % MCHC 30.8 L (32.0-37.0) g/dL Chloride 113 H (96-109) mmol/L Anion Gap 8.80 L (10.00-18.00) mmol/L Est GFR (CKD-EPI)AfAm 50.8 L (60.0-200.0) Est GFR (CKD-EPI)NonAf 43.9 L (60.0-200.0) Microbiology - Last 24 Hours (Table) 03/10/23 15:00 Urine Culture - Final Urine,Voided 03/10/23 01:00 Blood Culture - Preliminary Blood 03/10/23 01:15 Blood Culture - Preliminary Blood Assessment and Plan (1) Diarrhea Current Visit: Yes Status: Acute Code(s): R19.7 - DIARRHEA, UNSPECIFIED SNOMED Code(s): 00715380 (2) Leukocytosis Current Visit: Yes Status: Acute Code(s): D72.829 - ELEVATED WHITE BLOOD CELL COUNT, UNSPECIFIED SNOMED Code(s): 687689987 Plan: 1patient presented to hospital with diarrhea in this patient with a recent presentation to the hospital with similar symptoms on 02/21/2023 at that point the patient did have CT abdominal pelvis which shows a long segment of colitis inv olving from transverse to the descending colon with concern for possible infectious versus noninfectious etiology versus ischemia patient did have some improvement in her symptoms but not complete resolution however CT this admission did not show any evidence of colitis and stool for C. difficile is negative 2-patient with a history of amoxicillin allergy with vaginal yeast infection not a true allergy 3- stool culture are currently pending 4-patient to continue with Rocephin 2 g daily and Flagyl 500 every 8 , Questran has been added for symptomatic relief and will follow , multiple questions and concern answered Time with Patient: Less than 30
[2023-03-13 08:47] LABS: Basophils # (A) 0.03 X 10*3/uL (0.00-0.10); Basophils % (A) 0.5 %; Eosinophils # (A) 0.19 X 10*3/uL (0.04-0.35); Eosinophils % (A) 3.3 %; HCT 30.8 % (37.2-46.3); HGB 9.7 g/dL (12.0-15.0); Immature Grans, Automated 0 %; Lymphocytes # (A) 1.06 X 10*3/uL (0.90-5.00); Lymphocytes % (A) 18.6 %; MCHC 31.5 g/dL (32.0-37.0); MCV 92.2 fL (80.0-97.0); Mean Platelet Volume 11.1 fL (9.5-12.2); Monocytes # (A) 0.52 X 10*3/uL (0.20-1.00); Monocytes % (A) 9.1 %; NRBC Per 100 WBC 0 /100 WBCS (0.0-0.0); Neutrophils # (A) 3.89 X 10*3/uL (1.80-7.70); Neutrophils % (A) 68.5 %; Platelet Count 163 X 10*3/uL (140-440); RBC 3.34 X 10*6/uL (4.10-5.20); RDW 14.1 % (11.5-14.5); WBC 5.69 X 10*3/uL (4.50-10.00)
[2023-03-13] MEDS: metroNIDAZOLE-NS PMX 500 MG in SALINE 1 100ML.BAG IVPB SCH ×3 (09:02→23:46)
[2023-03-13] MEDS: HEPARIN SODIUM,PORCINE/PF 5,000 UNIT/0.5 ML SYRINGE SQ SCH ×2 (09:03→20:56)
[2023-03-13] MEDS: SODIUM BICARBONATE TAB 650 MG TAB PO SCH ×2 (09:04→20:56)
[2023-03-13] MEDS: atenoloL 50 MG TAB PO SCH ×2 (09:04→20:56)
[2023-03-13] MEDS: cycloSPORINE 0.05% OPHTH 0.4 ML DROPERETTE BOTH EYES SCH ×2 (09:04→20:58)
[2023-03-13] MEDS: FAMOTIDINE 20 MG/2 ML VIAL IV SCH (09:06)
[2023-03-13] MEDS: DULoxetine HCL 30 MG CAPSULE.DR PO SCH (09:06)
[2023-03-13] MEDS: LEVOTHYROXINE 100 MCG TAB PO SCH (09:07)
[2023-03-13] MEDS: IPRATROPIUM BROMIDE 0.06% NASAL SPRAY (15 ML) EA NOSTRIL SCH ×2 (09:07→20:58)
[2023-03-13 09:08] LABS: African American GFR (CKD) 56.5 (60.0-200.0); Anion Gap 6.4 mmol/L (10.00-18.00); BUN/Creat Ratio 11.91 Ratio (12.00-20.00); Blood Urea Nitrogen 13.1 mg/dL (9.0-27.0); Calcium 8.4 mg/dL (8.7-10.3); Carbon Dioxide 24.6 mmol/L (20.0-27.5); Non-African American GFR(CKD) 48.7 (60.0-200.0)
[2023-03-13] MEDS: CHOLESTYRAMINE (WITH SUGAR) 4 GM PACKET PO SCH ×4 (09:11→20:57)
[2023-03-13] MEDS: guaiFENesin SYRUP 100MG/5ML 200 MG/10 ML CUP PO PRN ×2 (09:56→21:08)
[2023-03-13] MEDS ORDERED: CHOLESTYRAMINE (WITH SUGAR) 4 GM PACKET PO SCH (10:00)
[2023-03-13] MEDS ORDERED: LOPERAMIDE 2 MG CAP PO PRN (10:28)
--- NOTE | 2023-03-13 12:17 | P.PN ---
Subjective Patient is seen for follow-up for acute kidney injury. Maintained on IV fluids with significant improvement in renal function. Serum creatinine at 1.1 from 2.0 on initial admission. 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 - Labs CBC & Chem 7: 03/13/23 05:41 03/13/23 05:41 Labs: Abnormal Lab Results - Last 24 Hours (Table) 03/13/23 03/13/23 Range/Units 05:41 05:41 RBC 3.34 L (4.10-5.20) X 10*6/uL Hgb 9.7 L (12.0-15.0) g/dL Hct 30.8 L (37.2-46.3) % MCHC 31.5 L (32.0-37.0) g/dL Chloride 111 H (96-109) mmol/L Anion Gap 6.40 L (10.00-18.00) mmol/L Est GFR (CKD-EPI)AfAm 56.5 L (60.0-200.0) Est GFR (CKD-EPI)NonAf 48.7 L (60.0-200.0) BUN/Creatinine Ratio 11.91 L (12.00-20.00) Ratio Calcium 8.4 L (8.7-10.3) mg/dL Microbiology - Last 24 Hours (Table) 03/10/23 01:00 Blood Culture - Preliminary Blood 03/10/23 01:15 Blood Culture - Preliminary Blood 03/10/23 14:10 Stool Culture - Preliminary Stool Assessment and Plan Assessment: 1. Acute kidney injury mostly prerenal secondary to hypovolemia and further worsened with the use of Lasix. Creatinine 2 on admission and is down to 1.1 today. UA with trace protein. No hydronephrosis noted on CAT scan. 2. Chronic kidney disease, stage II per patient. Patient was seen by a modeling instructor at [place] few years ago but has not followed up. Patient states her baseline creatinine usually runs 1.2-1.3. 3. Hypertension with chronic kidney disease. Currently controlled. 4. Diarrhea. Possibly viral. C. diff negative. Stool culture pending. 5. Metabolic acidosis secondary to acute kidney injury, IV fluids and GI losses. Plan: Continue IV fluids for now Repeat labs in a.m. Continue oral sodium bicarb
--- NOTE | 2023-03-13 12:34 | P.PN ---
Subjective Progress Note Date: 03/13/23 Principal diagnosis: Diarrhea/colitis Patient is a 77-year-old female with a past medical history significant for coronary disease and hypertension hypothyroidism renal disease patient was recently evaluated in the ER on 02/21/2023 apparently at that point patient was complaining of diarrhea abdominal cramping and did have blood in the stool patient did have a CT of abdominal pelvis completed on 02/21/2023 Long segment colitis from the distal transverse colon, treated with oral Cipro and Flagyl presenting back to the hospital with persistent diarrhea but resolution of her bleeding per rectum repeat CT did not show any evidence of colitis On today's evaluation that is 03/13/2023, the patient continues to be afebrile, the patient is still complaining of frequent small stool however no loose stool , no blood in the stool some nausea but no vomiting no chest pain shortness of breath or cough Objective - Vital Signs Vital signs: Vital Signs Temp 98.2 F 03/13/23 07:00 Pulse 77 03/13/23 07:00 Resp 17 03/13/23 07:00 BP 148/72 03/13/23 07:00 Pulse Ox 97 03/13/23 08:45 FiO2 21 03/13/23 08:45 Intake & Output 03/12/23 03/13/23 03/13/23 18:59 06:59 18:59 Intake Total 236 60 Balance 236 60 Intake: Oral 236 60 Other: Voiding Method Toilet # Voids 1 1 - Exam GENERAL DESCRIPTION: An elderly female lying in bed in no distress RESPIRATORY SYSTEM: Unlabored breathing , decreased breath sounds at bases HEART: S1 S2 regular rate and rhythm , ABDOMEN: Soft , no tenderness EXTREMITIES: No edema feet - Labs CBC & Chem 7: 03/13/23 05:41 03/13/23 05:41 Labs: Abnormal Lab Results - Last 24 Hours (Table) 03/13/23 03/13/23 Range/Units 05:41 05:41 RBC 3.34 L (4.10-5.20) X 10*6/uL Hgb 9.7 L (12.0-15.0) g/dL Hct 30.8 L (37.2-46.3) % MCHC 31.5 L (32.0-37.0) g/dL Chloride 111 H (96-109) mmol/L Anion Gap 6.40 L (10.00-18.00) mmol/L Est GFR (CKD-EPI)AfAm 56.5 L (60.0-200.0) Est GFR (CKD-EPI)NonAf 48.7 L (60.0-200.0) BUN/Creatinine Ratio 11.91 L (12.00-20.00) Ratio Calcium 8.4 L (8.7-10.3) mg/dL Microbiology - Last 24 Hours (Table) 03/10/23 01:00 Blood Culture - Preliminary Blood 03/10/23 01:15 Blood Culture - Preliminary Blood 03/10/23 14:10 Stool Culture - Preliminary Stool Assessment and Plan (1) Diarrhea Current Visit: Yes Status: Acute Code(s): R19.7 - DIARRHEA, UNSPECIFIED S NOMED Code(s): 03906582 (2) Leukocytosis Current Visit: Yes Status: Acute Code(s): D72.829 - ELEVATED WHITE BLOOD CELL COUNT, UNSPECIFIED SNOMED Code(s): 554695802 Plan: 1patient presented to hospital with diarrhea in this patient with a recent presentation to the hospital with similar symptoms on 02/21/2023 at that point the patient did have CT abdominal pelvis which shows a long segment of colitis involving from transverse to the descending colon with concern for possible infectious versus noninfectious etiology versus ischemia patient did have some improvement in her symptoms but not complete resolution however CT this admis rigo did not show any evidence of colitis and stool for C. difficile is negative 2-patient with a history of amoxicillin allergy with vaginal yeast infection not a true allergy 3- stool culture are so for negative 4-patient seemed to showing some clinical improvement the patient white count has normalized, patient to continue with Rocephin 2 g daily and Flagyl 500 every 8 , Questran has been added and will see clinical response as she got her first dose this morning Time with Patient: Less than 30
[2023-03-13] MEDS: ATORVASTATIN 40 MG TAB PO SCH (20:56)
[2023-03-13] MEDS: ONDANSETRON 4 MG/2 ML VIAL IVP PRN (21:04)
--- NOTE | 2023-03-13 23:41 | PN ---
PROGRESS NOTE DATE OF SERVICE: 03/13/2023 SUBJECTIVE: This 77-year-old woman was admitted with significant diarrhea, possibly antibiotic- induced diarrhea. C difficile negative. No chest pain, no palpitations, no fever. The patient is on empiric antibiotics also. OBJECTIVE: VITAL SIGNS: Pulse is 71, blood pressure 150/76, and respirations 16. CHEST: Clear to auscultation. CARDIOVASCULAR: S1, S2 muffled. ABDOMEN: Soft. NERVOUS SYSTEM: No focal deficits. LABORATORY DATA: Hemoglobin 9.7, rest of the labs are noted. ASSESSMENT: 1. Significant diarrhea, possibly acute gastroenteritis versus antibiotic-induced diarrhea. 2. Acute renal failure, possibly dehydration with acute tubular necrosis. 3. Hypertension. 4. History of coronary artery disease. 5. Multiple medical issues. RECOMMENDATIONS: Recommended to continue current medications, continue symptomatic treatment. Increase dose of Questran, p.r.n. Imodium. Follow closely with Infectious Disease. C diff is negative. Further recommendations to follow. MMODL / IJN: [id number] /
[2023-03-14] MEDS: metroNIDAZOLE-NS PMX 500 MG in SALINE 1 100ML.BAG IVPB SCH (08:14)
[2023-03-14] MEDS: CHOLESTYRAMINE (WITH SUGAR) 4 GM PACKET PO SCH ×4 (08:15→21:17)
[2023-03-14] MEDS: HEPARIN SODIUM,PORCINE/PF 5,000 UNIT/0.5 ML SYRINGE SQ SCH ×2 (08:15→21:16)
[2023-03-14] MEDS: atenoloL 50 MG TAB PO SCH ×2 (08:16→21:16)
[2023-03-14] MEDS: DULoxetine HCL 30 MG CAPSULE.DR PO SCH (08:16)
[2023-03-14] MEDS: SODIUM BICARBONATE TAB 650 MG TAB PO SCH ×2 (08:16→21:16)
[2023-03-14] MEDS: LEVOTHYROXINE 100 MCG TAB PO SCH ×2 (08:16→08:17)
[2023-03-14] MEDS: cycloSPORINE 0.05% OPHTH 0.4 ML DROPERETTE BOTH EYES SCH ×2 (08:16→21:17)
[2023-03-14] MEDS: FAMOTIDINE 20 MG/2 ML VIAL IV SCH (08:17)
[2023-03-14] MEDS: SODIUM CHLORIDE 0.9% 1,000 ML IV SCH ×2 (08:17→21:40)
[2023-03-14] MEDS: IPRATROPIUM BROMIDE 0.06% NASAL SPRAY (15 ML) EA NOSTRIL SCH ×2 (08:17→21:17)
--- NOTE | 2023-03-14 13:08 | PN ---
PROGRESS NOTE DATE OF SERVICE: 03/14/2023 SUBJECTIVE: This is a 77-year-old woman, who was admitted with significant diarrhea, possibly antibiotic induced or associated. It is improving significantly. No chest pain or palpitation. OBJECTIVE: VITAL SIGNS: Pulse is 66, blood pressure 150/72, respirations 16. CHEST: Clear to auscultation. CARDIOVASCULAR: S1 and S2. ABDOMEN: Soft, nontender. LABORATORY DATA: labs are reviewed. ASSESSMENT: 1. Significant diarrhea possibly acute gastroenteritis versus antibiotic induced diarrhea. 2. Acute renal failure possibly secondary to acute tubular necrosis. 3. Hypertension. 4. History of coronary artery disease. 5. Multiple medical issues. RECOMMENDATIONS AND DISCUSSION: I recommend to continue current medications. Continue symptomatic treatment. Continue the Questran and Imodium p.r.n. Otherwise stop the antibiotic per Infectious Disease. Further recommendations to follow. MMSARAIL / KIMBERLYN: [id number] /
--- NOTE | 2023-03-14 13:19 | P.PN ---
Subjective Progress Note Date: 03/14/23 Principal diagnosis: Diarrhea/colitis Patient is a 77-year-old female with a past medical history significant for coronary disease and hypertension hypothyroidism renal disease patient was recently evaluated in the ER on 02/21/2023 apparently at that point patient was complaining of diarrhea abdominal cramping and did have blood in the stool patient did have a CT of abdominal pelvis completed on 02/21/2023 Long segment colitis from the distal transverse colon, treated with oral Cipro and Flagyl presenting back to the hospital with persistent diarrhea but resolution of her bleeding per rectum repeat CT did not show any evidence of colitis On today's evaluation that is 03/14/2023, the patient denies any fever or any chills, the patient is feeling slightly better as of frequency of bowel movements has decreased, no blood in the stool some nausea but no vomiting no chest pain shortness of breath or cough Objective - Vital Signs Vital signs: Vital Signs Temp 98.1 F 03/14/23 07:10 Pulse 66 03/14/23 07:10 Resp 17 03/14/23 08:00 BP 152/73 03/14/23 07:10 Pulse Ox 97 03/14/23 07:24 FiO2 21 03/14/23 07:24 Intake & Output 03/13/23 03/14/23 03/14/23 18:59 06:59 18:59 Intake Total 660 240 Balance 660 240 Intake: Oral 660 240 Other: Voiding Method Toilet Toilet # Voids 2 1 - Exam GENERAL DESCRIPTION: An elderly female lying in bed in no distress RESPIRATORY SYSTEM: Unlabored breathing , decreased breath sounds at bases HEART: S1 S2 regular rate and rhythm , ABDOMEN: Soft , no tenderness EXTREMITIES: No edema feet - Labs CBC & Chem 7: 03/13/23 05:41 03/13/23 05:41 Labs: Microbiology - Last 24 Hours (Table) 03/10/23 01:00 Blood Culture - Preliminary Blood 03/10/23 01:15 Blood Culture - Preliminary Blood 03/10/23 14:10 Stool Culture - Final Stool Assessment and Plan (1) Diarrhea Current Visit: Yes Status: Acute Code(s): R19.7 - DIARRHEA, UNSPECIFIED SNOMED Code(s): 08862781 (2) Leukocytosis Current Visit: Yes Status: Acute Code(s): D72.829 - ELEVATED WHITE BLOOD CELL COUNT, UNSPECIFIED SNOMED Code(s): 417844294 Plan: 1patient presented to hospital with diarrhea in this patient with a recent presentation to the hospital with similar symptoms on 02/21/2023 at that point the patient did have CT abdominal pelvis which shows a long segment of colitis involving from transverse to the descending colon with concern for possible infectious versus noninfectious etiology versus ischemia patient did have some improvement in her symptoms but not complete resolution however CT this admission did not show any evidence of colitis and stool for C. difficile is negative 2-patient with a history of amoxicillin allergy with vaginal yeast infection not a true allergy 3- stool culture are so for negative 4-patient seemed to showing some clinical improvement with addition of Questran which will be continued as the cultures are negative we will discontinue Rocephin and Flagyl and monitor the patient closely off antibiotic therapy discussed with the admitting physician Time with Patient: Less than 30
[2023-03-14] MEDS: ATORVASTATIN 40 MG TAB PO SCH (21:16)
[2023-03-14] MEDS: guaiFENesin SYRUP 100MG/5ML 200 MG/10 ML CUP PO PRN (21:20)
[2023-03-15 07:26] VITALS: BP 164/73; PULSE 72; RESP 16; TEMP 97.8
[2023-03-15] MEDS: HEPARIN SODIUM,PORCINE/PF 5,000 UNIT/0.5 ML SYRINGE SQ SCH (10:03)
[2023-03-15] MEDS: DULoxetine HCL 30 MG CAPSULE.DR PO SCH ×2 (10:03→10:08)
[2023-03-15] MEDS: IPRATROPIUM BROMIDE 0.06% NASAL SPRAY (15 ML) EA NOSTRIL SCH (10:03)
[2023-03-15] MEDS: FAMOTIDINE 20 MG/2 ML VIAL IV SCH (10:03)
[2023-03-15] MEDS: CHOLESTYRAMINE (WITH SUGAR) 4 GM PACKET PO SCH ×2 (10:04→13:06)
[2023-03-15] MEDS: atenoloL 50 MG TAB PO SCH (10:04)
[2023-03-15] MEDS: cycloSPORINE 0.05% OPHTH 0.4 ML DROPERETTE BOTH EYES SCH (10:04)
[2023-03-15] MEDS: LEVOTHYROXINE 100 MCG TAB PO SCH (10:04)
[2023-03-15] MEDS: SODIUM BICARBONATE TAB 650 MG TAB PO SCH (10:04)
--- NOTE | 2023-03-15 12:13 | P.PN ---
Subjective Patient is seen for follow-up for acute kidney injury. Status post IV fluids with significant improvement in renal function. Serum creatinine at 1.1 from 2.0 on initial admission. 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 Acute kidney injury mostly prerenal secondary to hypovolemia and further worsened with the use of Lasix. Creatinine 2 on admission and is down to 1.1 today. UA with trace protein. No hydronephrosis noted on CAT scan. 2. Chronic kidney disease, stage II per patient. Patient was seen by a mud trucker at [place] few years ago but has not followed up. Patient states her baseline creatinine usually runs 1.2-1.3. 3. Hypertension with chronic kidney disease. Currently controlled. 4. Diarrhea. Possibly viral. C. diff negative. Stool culture pending. 5. Metabolic acidosis secondary to acute kidney injury, IV fluids and GI losses. Plan: Continue to encourage increased oral intake particularly fluids. Discontinue sodium bicarb
[2023-03-15] MEDS: SODIUM CHLORIDE 0.9% 1,000 ML IV SCH (12:59)
--- NOTE | 2023-03-15 13:48 | P.PN ---
Subjective Progress Note Date: 03/15/23 Principal diagnosis: Diarrhea/colitis Patient is a 77-year-old female with a past medical history significant for coronary disease and hypertension hypothyroidism renal disease patient was recently evaluated in the ER on 02/21/2023 apparently at that point patient was complaining of diarrhea abdominal cramping and did have blood in the stool patient did have a CT of abdominal pelvis completed on 02/21/2023 Long segment colitis from the distal transverse colon, treated with oral Cipro and Flagyl presenting back to the hospital with persistent diarrhea but resolution of her bleeding per rectum repeat CT did not show any evidence of colitis On today's evaluation that is 03/15/2023, the patient is afebrile, the patient is feeling better, frequency of bowel movements has decreased and more forming up, the patient denies having any blood in the stool some nausea but no vomiting no chest pain shortness of breath or cough Objective - Vital Signs Vital signs: Vital Signs Temp 97.8 F 03/15/23 07:02 Pulse 72 03/15/23 07:02 Resp 16 03/15/23 07:02 BP 164/73 03/15/23 07:02 Pulse Ox 94 L 03/15/23 07:02 FiO2 21 03/14/23 07:24 Intake & Output 03/14/23 03/15/23 03/15/23 18:59 06:59 18:59 Intake Total 476 Balance 476 Intake: Oral 476 Other: Voiding Method Toilet Toilet # Voids 3 1 - Exam GENERAL DESCRIPTION: An elderly female lying in bed in no distress RESPIRATORY SYSTEM: Unlabored breathing , decreased breath sounds at bases HEART: S1 S2 regular rate and rhythm , ABDOMEN: Soft , no tenderness EXTREMITIES: No edema feet - Labs CBC & Chem 7: 03/13/23 05:41 03/13/23 05:41 Labs: Microbiology - Last 24 Hours (Table) 03/10/23 14:10 Stool Culture - Final Stool 03/10/23 01:00 Blood Culture - Preliminary Blood 03/10/23 01:15 Blood Culture - Preliminary Blood Assessment and Plan (1) Diarrhea Status: Acute Code(s): R19.7 - DIARRHEA, UNSPECIFIED SNOMED Code(s): 49930581 (2) Leukocytosis Status: Acute Code(s): D72.829 - ELEVATED WHITE BLOOD CELL COUNT, UNSPECIFIED SNOMED Code(s): 554326938 Plan: 1patient presented to hospital with diarrhea in this patient with a recent presentation to the hospital with similar symptoms on 02/21/2023 at that point the patient did have CT abdominal pelvis which shows a long segment of colitis involving from transverse to the descending colon with concern for possible infectious versus noninfectious etiology versus ischemia patient did have some improvement in her symptoms but not complete resolution however CT this admission did not show any evidence of colitis and stool for C. difficile is negative 2-patient with a history of amoxicillin allergy with vaginal yeast infection not a true allergy 3- stool culture are so for negative 4-patient has shown clinical improvement with addition of Questran which will be continued on discharge patient has been instructed to stop taking it if the stool becomes hard or no bowel movement for 24 hour also advised to continue with probiotics and yogurt intake questions Answered Time with Patient: Less than 30
--- NOTE | 2023-03-15 17:54 | DS ---
DISCHARGE SUMMARY FINAL DIAGNOSES: 1. Significant diarrhea possibly acute gastroenteritis and antibiotic-induced diarrhea. 2. Acute renal failure possibly secondary to acute tubular necrosis, improved. 3. Hypertension. 4. History of coronary artery disease. 5. Multiple medical issues. DISCHARGE DISPOSITION: The patient will be discharged in stable condition and guarded prognosis. HISTORY OF PRESENT ILLNESS: This is a 77-year-old woman with a past medical history of multiple medical problems who is admitted with significant diarrhea. C. difficile negative. The patient was treated symptomatically and improved significantly. Dr. Epps saw the patient. PHYSICAL EXAMINATION: VITAL SIGNS: Stable. CARDIOVASCULAR: S1 and S2. ABDOMEN: Soft. NERVOUS SYSTEM: No focal deficits. LABORATORY DATA: Hemoglobin 9.7. Creatinine improved to 1.1, BUN is 13.1. DISCHARGE MEDICATIONS: 1. Resume the home medications. Avoid triamterene-hydrochlorothiazide for now. 2. Imodium p.r.n. 3. Cholestyramine (Questran) 4 mg p.o. q.i.d. till diarrhea subsides. FOLLOWUP: Follow up with primary physician. CBC, BMP. Follow up with Dr. Greer as recommended. Once again, the patient will be discharged in stable condition and guarded prognosis. MMODL / IJN: [id number] /
== END 2023-03-15 13:25 | disposition home or self-care (01) | DRG 391 ==
LOC: EC 19:09 → 6NMEDSUR 03-10 00:25 → OBSVTOIN 03-12 16:39
PROVIDERS: ADMIT Hospitalist; ATTEND Hospitalist
DX: K52.9 Noninfective gastroenteritis and colitis, unspecified (principal); N17.0 Acute kidney failure with tubular necrosis; K52.1 Toxic gastroenteritis and colitis; E87.20 Acidosis, unspecified; N18.2 Chronic kidney disease, stage 2 (mild); I12.9 Hypertensive chronic kidney disease with stage 1 through stage 4 chronic kidney disease, or unspecified chronic kidney disease; E03.9 Hypothyroidism, unspecified; Z79.890 Hormone replacement therapy; E11.22 Type 2 diabetes mellitus with diabetic chronic kidney disease; T36.95XA Adverse effect of unspecified systemic antibiotic, initial encounter; E78.5 Hyperlipidemia, unspecified; E86.0 Dehydration; E86.1 Hypovolemia; I25.10 Atherosclerotic heart disease of native coronary artery without angina pectoris; Z79.82 Long term (current) use of aspirin; Z79.899 Other long term (current) drug therapy; X58.XXXA Exposure to other specified factors, initial encounter; Z88.1 Allergy status to other antibiotic agents; Z88.8 Allergy status to other drugs, medicaments and biological substances
CPT/HCPCS: 36415; 71045; 71046; 74176; 80048; 80053; 81001; 83605; 83735; 84484; 85025; 85610; 85730; 87040; 87045; 87046; 87086; 87324; 87636; 93005; 94760

== ENCOUNTER → 2023-03-17 | Outpatient (CLI) | payer MEDICARE ==
[2023-03-18 11:30] LABS: Basophils # (A) 0.04 X 10*3/uL (0.00-0.10); Basophils % (A) 0.6 %; Eosinophils % (A) 4.2 %; HCT 37.1 % (37.2-46.3); HGB 11.7 g/dL (12.0-15.0); Immature Grans, Automated 0.4 %; Lymphocytes # (A) 1.56 X 10*3/uL (0.90-5.00); Lymphocytes % (A) 21.8 %; MCH 29.5 pg (27.0-32.0); MCHC 31.5 g/dL (32.0-37.0); MCV 93.7 fL (80.0-97.0); Mean Platelet Volume 11.2 fL (9.5-12.2); Monocytes # (A) 0.86 X 10*3/uL (0.20-1.00); NRBC Per 100 WBC 0 /100 WBCS (0.0-0.0); Neutrophils # (A) 4.35 X 10*3/uL (1.80-7.70); Platelet Count 247 X 10*3/uL (140-440); RBC 3.96 X 10*6/uL (4.10-5.20); RDW 14.2 % (11.5-14.5); WBC 7.14 X 10*3/uL (4.50-10.00)
== END | disposition home or self-care (01) ==
LOC: LABWHC1 11:06
PROVIDERS: ATTEND Hospitalist
DX: N17.9 Acute kidney failure, unspecified (principal)
CPT/HCPCS: 36415; 85025

== ENCOUNTER 2024-02-22 17:52 | Emergency (ER) | payer MEDICARE ==
[2024-02-22 18:06] VITALS: TEMP 98.1
[2024-02-22] MEDS: ACETAMINOPHEN TAB 325 MG TAB PO STA (18:24)
--- NOTE | 2024-02-22 18:24 | ED ---
Head Injury HPI - General Chief complaint: Head Injury Stated complaint: head injury Time Seen by Provider: 02/22/24 18:10 Source: patient, RN notes reviewed Mode of arrival: ambulatory Limitations: no limitations - History of Present Illness Initial comments: 48-year-old female presenting for head injury x 5 hours ago. patient states she was in her refrigerator and stood up, hitting the top of her head on the refrigerator door. Patient did not lose consciousness. patient is not on thinners. Patient is concerned because she has been having an increasing headache and "pressure" in her head since the incident. She also admits some nausea and lightheadedness. Denies vision changes, numbness, tingling, weakness. Patient states last Tylenol was 5 hours ago. - Related Data Home Medications Medication Instructions Recorded Confirmed Levothyroxine Sodium [Levoxyl] 100 mcg PO DAILY 04/20/14 03/10/23 cycloSPORINE 0.05% OPHTH SOLN 1 applicator BOTH EYES BID 04/20/14 03/10/23 [Restasis] Atorvastatin [Lipitor] 40 mg PO HS 05/22/16 03/10/23 atenoloL [Tenormin] 50 mg PO BID 04/21/17 03/10/23 Albuterol Sulfate [Albuterol 2 puff PO RT-Q6H PRN 03/10/23 03/10/23 Sulfate Hfa] DULoxetine HCL [Cymbalta] 30 mg PO DAILY 03/10/23 03/10/23 Famotidine [Pepcid] 40 mg PO BID 03/10/23 03/10/23 Ipratropium [place] 0.06%Nasal 2 spray EA NOSTRIL BID 03/10/23 03/10/23 [Atrovent Nasal 0.06%] Triamterene/Hydrochlorothiazid 0.5 tab PO DAILY 03/10/23 03/10/23 [Triamterene-Hctz 37.5-25 mg Tb] Previous Rx's Medication Instructions Recorded Cholestyramine (with Sugar) 4 gm PO QID #20 packet 03/15/23 [Questran Packet] Loperamide [Imodium] 2 mg PO QID PRN cap 03/15/23 guaiFENesin SYRUP 100MG/5ML 200 mg PO Q6HR PRN #1 ml 03/15/23 [Robitussin] Allergies/Adverse reactions: Allergies Allergy/AdvReac Type Severity Reaction Status Date / Time amoxicillin trihydrate Allergy Rash/Hives Verified 02/22/24 17:57 [From Augmentin] clopidogrel bisulfate Allergy Swelling Verified 02/22/24 17:57 [From Plavix] lisinopril Allergy Unknown Verified 02/22/24 17:57 losartan Allergy Unknown Verified 02/22/24 17:57 phenobarbital Allergy Rash/Hives Verified 02/22/24 17:57 potassium clavulanate Allergy Rash/Hives Verified 02/22/24 17:57 [From Augmentin] Review of Systems ROS Statement: Those systems with pertinent positive or pertinent negative responses have been documented in the HPI. ROS Other: All systems not noted in ROS Statement are negative. Past Medical History Past Medical History: Coronary Artery Disease (CAD), Hypertension, Renal Disease, Thyroid Disorder Additional Past Medical History / Comment(s): TACHYCARDIA, STAGE 3 RENAL FAILURE, degenerative cervical spine. History of Any Multi-Drug Resistant Organisms: None Reported Past Surgical History: Back Surgery, Breast Surgery, Heart Catheterization, Orthopedic Surgery, Tonsillectomy Additional Past Surgical History / Comment(s): D&C, cyst removed from spine Past Anesthesia/Blood Transfusion Reactions: Postoperative Nausea & Vomiting (PONV) Past Psychological History: Anxiety Smoking Status: Never smoker Past Alcohol Use History: Rare Past Drug Use History: None Reported - Past Family History Mother Family Medical History: Cancer Additional Family Medical History / Comment(s): breast cancer, parkinsins, degenerative disc disease, ovary cyst, passed from head injury Father Family Medical History: Coronary Artery Disease (CAD), Hypertension, Myocardial Infarction (GA) Additional Family Medical History / Comment(s): triple bypass Brother(s) Additional Family Medical History / Comment(s): subdural hematoma Son(s) Family Medical History: No Reported History Sister(s) Family Medical History: Hypertension Additional Family Medical History / Comment(s): parathyroid disorder General Exam Limitations: no limitations General appearance: alert, in no apparent distress Head exam: Present: atraumatic, normocephalic, normal inspection, other (No lacerations, erythema, hematoma present. Diffuse tenderness on superior portion of scalp.) Eye exam: Present: normal appearance, PERRL, EOMI. Absent: scleral icterus, conjunctival injection, periorbital swelling Pupils: Present: normal accommodation ENT exam: Present: normal exam, mucous membranes moist, TM's normal bilaterally Neck exam: Present: normal inspection. Absent: tenderness, meningismus, lymphadenopathy Respiratory exam: Present: normal lung sounds bilaterally. Absent: respiratory distress, wheezes, rales, rhonchi, stridor Cardiovascular Exam: Present: regular rate, normal rhythm, normal heart sounds. Absent: systolic murmur, diastolic murmur, rubs, gallop, clicks Neurological exam: Present: alert, oriented X3, CN II-XII intact Psychiatric exam: Present: normal affect, normal mood Skin exam: Present: warm, dry, intact, normal color. Absent: rash Course Vital Signs 02/22/24 17:53 Temperature 98.1 F Pulse Rate 69 Respiratory 18 Rate Blood Pressure 176/75 O2 Sat by Pulse 98 Oximetry Medical Decision Making - Medical Decision Making Was pt. sent in by a medical professional or institution (, PA, TAX EVALUATOR, urgent care, hospital, or half-way...) When possible be specific @ -No Did you speak to anyone other than the patient for history (EMS, parent, family, police, friend...)? What history was obtained from this source @ -No Did you review nursing and triage notes (agree or disagree)? Why? @ -I reviewed and agree with nursing and triage notes Were old charts reviewed (outside hosp., previous admission, EMS record, old EKG, old radiological studies, urgent care reports/EKG's, half-way records)? Report findings @ -No old charts were reviewed Differential Diagnosis (chest pain, altered mental status, abdominal pain women, abdominal pain men, vaginal bleeding, weakness, fever, dyspnea, syncope, headac he, dizziness, GI bleed, back pain, seizure, CVA, palpatations, mental health, musculoskeletal)? @ -Concussion, intracranial bleed, laceration, hematoma EKG interpreted by me (3pts min.). @ -None X-rays interpreted by me (1pt min.). @ -None done CT interpreted by me (1pt min.). @ -CT head reveals no acute process U/S interpreted by me (1pt. min.). @ -None done What testing was considered but not performed or refused? (CT, X-rays, U/S, labs)? Why? @ -None What meds were considered but not given or refused? Why? @ -None Did you discuss the management of the patient with other professionals (pro fessionals i.e. , PA, TAX EVALUATOR, lab, RT, psych nurse, web content & social media manager, president & ceo [employer], teacher, credit administration officer, manager case)? Give summary @ -No Was smoking cessation discussed for >3mins.? @ -No Was critical care preformed (if so, how long)? @ -No Were there social determinants of health that impacted care today? How? (Homelessness, low income, unemployed, alcoholism, drug addiction, transportation, low edu. Level, literacy, decrease access to med. care, [facility], rehab)? @ -No Was there de-escalation of care discussed even if they declined (Discuss DNR or withdrawal of care, Hospice)? DNR status @ -No What co-morbidities impacted this encounter? (DM, HTN, Smoking, COPD, CAD, Cancer, CVA, ARF, Chemo, Hep., AIDS, mental health diagnosis, sleep apnea, morbid obesity)? @ -None Was patient admitted / discharged? Hospital course, mention meds given and route, prescriptions, significant lab abnormalities, going to OR and other pertinent info. @ -Patient was discharged. Patient was seen and evaluated for head injury x 5 hours ago. Patient did not lose consciousness but is experiencing some headaches, lightheadedness, and nausea. CT of head revealed no acute intracranial process. Patient was given Tylenol for pain and is feeling well upon discharge. Discussed diagnosis of mild concussion with patient. Strict return symptoms discussed. Supportive care discussed. Patient discharged in stable condition. Case discussed with Dr. Gutierrez. Undiagnosed new problem with uncertain prognosis? @ -No Drug Therapy requiring intensive monitoring for toxicity (Heparin, Nitro, Insulin, Cardizem)? @ -No Were any procedures done? @ -No Diagnosis/symptom? @ -Mild concussion Acute, or Chronic, or Acute on Chronic? @ -Acute Uncomplicated (without systemic symptoms) or Complicated (systemic symptoms)? @ -Complicated Side effects of treatment? @ -No Exacerbation, Progression, or Severe Exacerbation? @ -No Poses a threat to life or bodily function? How? (Chest pain, [place], [place], pneumonia, PE, COPD, DKA, ARF, appy, cholecystitis, CVA, Diverticulitis, Homicidal, Suicidal, threat to staff... and all critical care pts) @ -No Disposition Clinical Impression: Concussion without loss of consciousness Disposition: HOME SELF-CARE Condition: Stable Instructions (If sedation given, give patient instructions): Concussion (ED) Additional Instructions: Please return to the Emergency Department if symptoms worsen or any other concerns. Is patient prescribed a controlled substance at d/c from ED?: No Referrals: Nonstaff,Physician [Primary Care Provider] - 1-2 days Time of Disposition: 19:02
--- NOTE | 2024-02-22 18:48 | CT ---
EXAMINATION TYPE: CT brain cspine wo con DATE OF EXAM: 02/22/2024 COMPARISON: 09/04/2018 HISTORY: pain after hit head on cabinet, dizzy CT DLP: 1394.7 mGycm, Automated exposure control for dose reduction was used. CONTRAST: Patient injected with mL of . CT of the brain is performed utilizing 3 mm thick sections through the posterior fossa and 3 mm thick sections through the remaining calvarium. Study is performed within 24 hours of arrival to the hospital. No abnormal hyperdensity is present to suggest an acute intracranial hemorrhage. No mass lesion is evident. No acute infarcts are evident. Ventricles and sulci are appropriate for the patient age. Paranasal sinuses and mastoid air cells within the [id number] are clear. IMPRESSIONS: 1. No acute intracranial process. Follow-up MRI can be performed as clinically indicated. CT cervical spine. COMPARISON: None CT of the cervical spine is performed in the axial plane at 2 mm thick sections. Reconstructed image s in the coronal, and sagittal plane are reviewed on the computer. No acute fractures are evident. Vertebral body alignment is normal. Multilevel degenerative disc changes present throughout the cervical spine. This appears greatest at the C3-4 and C4-5 levels. Vertebral body heights are preserved. No spinal canal stenosis is evident. Moderate to severe left foraminal stenosis from uncovertebral joint hypertrophy is present C5-6. IMPRESSION: 1. No acute osseous abnormality cervical spine. 2. Degenerative disc changes. Moderate to severe left foraminal stenosis of C5-6 is present
[2024-02-22 19:21] VITALS: BP 138/66; PULSE 66; RESP 15
== END 2024-02-22 19:17 | disposition home or self-care (01) ==
LOC: EC 17:52
DX: S06.0X0A Concussion without loss of consciousness, initial encounter (principal); S00.93XA Contusion of unspecified part of head, initial encounter; Z88.0 Allergy status to penicillin; Z88.8 Allergy status to other drugs, medicaments and biological substances; Z88.1 Allergy status to other antibiotic agents; R40.2410 Glasgow coma scale score 13-15, unspecified time; W22.09XA Striking against other stationary object, initial encounter
CPT/HCPCS: 70450; 72125; 99283